=== PATIENT | female | born 1970 | race Caucasian/White ===

== ENCOUNTER 2020-03-05 13:18 | Outpatient (REF) | payer OTHER, SELFPAY | END 2020-03-05 13:19 | disposition home or self-care (01) | LOC: HO.HAP 13:18 | PROVIDERS: PCP Internal Medicine; Visit Provider Internal Medicine | DX: Z46.1 Encounter for fitting and adjustment of hearing aid (principal) | CPT/HCPCS: V5266 ==

== ENCOUNTER 2020-03-22 15:14 | Outpatient (REF) | payer OTHER, SELFPAY ==
--- NOTE | 2020-03-22 15:18 | MM_ITS ---
EXAMINATION: MM SCREENING DIGITAL BREAST TOMOSYNTHESIS, BILATERAL CLINICAL INFORMATION: Screening. Asymptomatic. The lifetime risk of breast cancer based on the Tyrer-Cuzick Model is 21.1%. COMPARISON: Mammography: March 17, 2019 and studies dating back to February 10, 2011 TECHNIQUE: Digital breast tomosynthesis is performed in both the craniocaudal and mediolateral oblique views along with computer-aided detection (CAD). Synthesized 2D images are generated from the tomosynthesis. Additional left exaggerated craniocaudal view performed. FINDINGS: There are scattered areas of fibroglandular density (ACR BI-RADS breast composition Category b). There are no significant masses, abnormal calcifications, or other abnormalities. MM/MM tomosynthesis screening BI IMPRESSION: There are no significant changes from prior study. ASSESSMENT: BI-RADS 1: Negative RECOMMENDATION: Routine annual mammography screening. This patient's information was entered into a reminder system with a target due date for their next mammogram.
== END 2020-03-22 15:15 | disposition home or self-care (01) ==
LOC: HO.MAMMO 15:14
PROVIDERS: PCP Internal Medicine; Visit Provider Internal Medicine
DX: Z12.31 Encounter for screening mammogram for malignant neoplasm of breast (principal)
CPT/HCPCS: 77063; 77067

== ENCOUNTER 2020-05-09 09:19 | Outpatient (REF) | payer OTHER, SELFPAY ==
--- NOTE | 2020-05-10 10:00 | MHC.AU.P13 ---
Adult Audiological Evaluation Date of Visit: 05/09/20 Reason for Appointment: Audiological evaluation to monitor the status of Ms. Cadena's hearing loss. She notes that she is not hearing as well. She and her wharfinger chief deny any changes to her medical history. Previous Hearing Test Results: [facility] [place]- mild to moderately severe sensorineural hearing loss in the right ear, mild to moderate sensorineural hearing loss in the left ear. 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[employer] Model: Wishdates B50-M Serial Number: [id number] Battery Size: 312 Repair Warranty: 12/28/2020 Loss and Damage Warranty: 12/28/2020 Dispensed By: [facility] Date of Fittin10/21/2017 Hearing Instrument History- Left Ear: Real Estate Broker: [employer] Model: Wishdates B50-M Serial Number: [id number] Battery Size: 312 Warranty: 12/28/2020 Loss and Damage Warranty: 12/28/2020 Dispensed By: [facility] Date of Fittin10/21/2017 Otoscopy: Right Ear: Unremarkable Left Ear: Unremarkable Tympanometry: Tympanometry performed due to: Right Ear: Not performed at today's visit Left Ear: Not performed at today's visit Hearing Evaluation: Transducer(s) Used: Insert Earphones, Circumaural Headphones Method: Conventional Audiometry Stimuli Used: Pure Tones Right Ear: Description of Hearing: Normal hearing at 250 Hz, sloping to a mild conductive hearing loss at 500 Hz and a moderate sensorineural hearing loss from 7231-3809 Hz. Left Ear: Description of Hearing: Normal hearing at 250-500 Hz, sloping to a mild to moderate sensorineural hearing loss from 750-8000 Hz. Speech Recognition Threshold (SRT): Method Used: Recorded Lists Stimuli Used: Spondee Words Right Ear: 40 dBHL Left Ear: 40 dBHL Word Discrimination: Method: Recorded Lists Word Lists Used: Lista Bisil?bica (Slovak) Right Ear: 100% at 80 dBHL Left Ear: 100% at 80 dBHL Comparison: Compared to the most recent evaluation: Hearing is stable. Recommendations: Audiological re-evaluation in one year. Hearing aid maintenance performed today. Hearing aid(s) reprogrammed with updated test results. See Hearing Aid Follow-Up note for more information. Recommend hearing aid maintenance in 6 months, or sooner if needed. Diagnosis: Primary Diagnosis: H90.3 Bilateral Sensorineural Hearing Loss Services Performed: Comprehensive Audiological Evaluation (CPT 81869) Signature: Provider: Tiago Lizarraga, CCC-A
== END 2020-05-09 09:20 | disposition home or self-care (01) ==
LOC: HO.SH 09:19
PROVIDERS: Visit Provider Internal Medicine
DX: Z46.1 Encounter for fitting and adjustment of hearing aid (principal); H90.3 Sensorineural hearing loss, bilateral
CPT/HCPCS: 92557; 92593; 99499

== ENCOUNTER 2020-11-27 12:51 | Outpatient (REF) | payer OTHER, SELFPAY | END 2020-11-27 12:52 | disposition home or self-care (01) | LOC: HO.HAP 12:51 | PROVIDERS: Visit Provider Internal Medicine | DX: Z46.1 Encounter for fitting and adjustment of hearing aid (principal); H90.3 Sensorineural hearing loss, bilateral | CPT/HCPCS: V5266 ==

== ENCOUNTER 2021-02-13 08:59 | Outpatient (REF) | payer OTHER, SELFPAY ==
--- NOTE | ~2021-02-13 | FL_ITS ---
EXAMINATION: FL BARIUM SWALLOW Please see combined upper GI barium and barium swallow report
--- NOTE | ~2021-02-13 | FL_ITS ---
EXAMINATION: XR GI SERIES and small bowel follow-through CLINICAL INFORMATION: Dysphagia COMPARISON: None TECHNIQUE: Upper GI was performed using thin and thick barium and effervescent granules. Barium tablet was also administered. FINDINGS: The swallowing mechanism is normal. No aspiration or penetration is seen. Esophageal motility is normal. There is a small diverticulum of the right side of the distal thoracic esophagus. There is gastroesophageal reflux. No hernia is seen. No esophageal mass or stricture is seen. The barium tablet passed freely into the stomach. Stomach and duodenum are normal-appearing. No fold thickening, mass, ulcer or stricture is seen. FLUOROSCOPY TIME: 0.6 minutes DOSE AREA PRODUCT: 4.5 cuevas per centimeter squared. 35 saved fluoroscopic images. FL/FL upper GI series IMPRESSION: Small diverticulum of the distal thoracic esophagus. Significant gastroesophageal reflux.
== END 2021-02-13 09:00 | disposition home or self-care (01) ==
LOC: HO.XRAY 08:59
PROVIDERS: PCP Internal Medicine; Visit Provider Internal Medicine
DX: R13.10 Dysphagia, unspecified (principal)
CPT/HCPCS: 74220; 74240; 74246

== ENCOUNTER 2021-04-24 10:34 | Outpatient (REF) | payer OTHER, SELFPAY | END 2021-04-24 10:35 | disposition home or self-care (01) | LOC: HO.LNP 10:34 | PROVIDERS: Visit Provider Family Medicine | DX: Z20.822 Contact with and (suspected) exposure to COVID-19 (principal) | CPT/HCPCS: U0003; U0005 ==

== ENCOUNTER 2021-04-30 08:41 | Outpatient (REF) | payer OTHER, SELFPAY ==
[2021-04-30 11:26] LABS: MANUAL DIFF FLAG NO
[2021-04-30 11:28] LABS: Basophils Percent Auto 0.6 % (0-2); Eosinophils Absolute Auto 0.2 X10*3/uL (0.0-0.4); Eosinophils Percent Auto 2.8 % (0-4); Hematocrit 36.5 % (37.0-47.0); Hemoglobin 11.6 g/dl (12.0-16.0); Imm Gran Abs Auto 0.02 X10*3/uL (0.00-0.03); Imm Gran Pct Auto 0.4 % (0.0-0.4); Immature Retic Fraction 8.3 % (3.0-15.9); Lymphocytes Absolute Auto 0.9 X10*3/uL (1.2-4.9); Lymphocytes Percent Auto 17.8 % (20-40); Mean Corpuscular HGB Conc 31.8 g/dl (31.0-35.0); Mean Corpuscular Hemoglobin 26.3 pg (27.0-33.0); Mean Corpuscular Volume 82.8 fL (80.0-98.0); Mean Platelet Volume 12.6 fL (9.4-12.3); Monocytes Absolute Auto 0.4 X10*3/uL (0.1-1.2); Monocytes Percent Auto 6.8 % (2-11); Neutrophils Absolute Auto 3.8 x10*3/uL (2.0-8.3); Neutrophils Percent Auto 71.6 % (45-73); Platelet Count 205 X10*3/uL (160-400); Red Blood Count 4.41 X10*6/uL (4.20-5.50); Red Cell Distribution Width 13.5 % (11.0-16.0); Reticulocyte Percent 0.9 % (0.5-1.8); Reticulocytes Absolute 0.041 X10*6/uL (0.026-0.095); White Blood Count 5.3 X10*3/uL (4.8-10.8)
[2021-04-30 12:05] LABS: Alanine Aminotransferase 18 U/L (0-31); Alkaline Phosphatase 63 U/L (39-117); Anion Gap 12 (12-20); Aspartate Amino Transferase 15 U/L (5-31); Bilirubin Total 0.7 mg/dL (0.0-1.0); Blood Urea Nitrogen 14 mg/dL (9-16); Calcium 9.5 mg/dL (8.4-10.2); Carbon Dioxide 27 mmol/L (22-29); Chloride 106 mmol/L (96-108); Cholesterol 153 mg/dL; Estimated Glomerular Filt Rate > 60; Glucose Random 88 mg/dL (60-115); HDL Cholesterol 52 mg/dL; Iron 51 mcg/dL (30-160); LDL Cholesterol Calculated 88 mg/dl; Percent Iron Saturation 16 % (15-50); Potassium 4.6 mmol/L (3.3-5.1); Sodium 140 mmol/L (135-145); Total Iron Binding Capacity 321 mcg/dL (228-428); Triglycerides 67 mg/dL; Unsaturated Iron Binding 270 ug/dL
[2021-04-30 12:16] LABS: Ferritin 17 ng/mL (10-250); Free T4 (Free Thyroxine) 0.81 ng/dL (0.71-1.85); Thyroid Stimulating Hormone 2.12 uIU/mL (0.32-4.0); Vitamin D 25-OH Total 31.6 ng/mL (>30)
[2021-04-30 12:40] LABS: Folate 16.7 ng/mL (> or = 4.0); Vitamin B12 335 pg/mL (200-900)
== END 2021-04-30 08:42 | disposition home or self-care (01) ==
LOC: HO.WFDLDS 08:41
PROVIDERS: Visit Provider Internal Medicine
DX: E66.9 Obesity, unspecified (principal); E78.00 Pure hypercholesterolemia, unspecified; D64.9 Anemia, unspecified
CPT/HCPCS: 36415; 80053; 80061; 82306; 82607; 82728; 82746; 83540; 84439; 84443; 85025; 85045

== ENCOUNTER 2021-05-15 09:19 | Outpatient (REF) | payer OTHER, SELFPAY ==
--- NOTE | ~2021-05-15 | MM_ITS ---
EXAMINATION: MM SCREENING DIGITAL BREAST TOMOSYNTHESIS, BILATERAL CLINICAL INFORMATION: Screening. Asymptomatic. Family history breast cancer, mother. The lifetime risk of breast cancer based on the Tyrer-Cuzick Model is 22%. COMPARISON: Mammography: 03/22/2020, 03/17/2019, 02/22/2018, 01/28/2017 TECHNIQUE: Digital breast tomosynthesis is performed in both the craniocaudal and mediolateral oblique views along with computer-aided detection (CAD). Synthesized 2D images are generated from the tomosynthesis. Additional bilateral CC and left MLO views are provided. FINDINGS: There are scattered areas of fibroglandular density (ACR BI-RADS breast composition Category b). There are no significant masses, abnormal calcifications, or other abnormalities. Parenchymal pattern is similar to prior studies. There is no developing density or architectural abnormality. The axilla and skin contours are unremarkable. No significant changes. MM/MM tomosynthesis screening BI IMPRESSION: No mammographic evidence of malignancy. ASSESSMENT: BI-RADS 1: Negative RECOMMENDATION: 1. Routine annual mammography screening. 2. The lifetime risk of breast cancer based on the Tyrer-Cuzick Model is 22%. Additional annual adjunct screening with breast MRI may be of benefit in women with a risk score of 20% or greater. This patient's information was entered into a reminder system with a target due date for their next mammogram.
== END 2021-05-15 09:20 | disposition home or self-care (01) ==
LOC: HO.MAMMO 09:19
PROVIDERS: PCP Internal Medicine; Visit Provider Internal Medicine
DX: Z12.31 Encounter for screening mammogram for malignant neoplasm of breast (principal)
CPT/HCPCS: 77063; 77067

== ENCOUNTER → 2021-09-03 12:49 | Outpatient (BNVA) | payer OTHER, SELFPAY | PROVIDERS: PCP Internal Medicine; Referring Provider Internal Medicine; Visit Provider Physician Assistant | DX: K21.9 Gastro-esophageal reflux disease without esophagitis (principal); K59.00 Constipation, unspecified; Z79.899 Other long term (current) drug therapy | CPT/HCPCS: 99202 ==

== ENCOUNTER 2022-05-28 10:54 | Outpatient (REF) | payer OTHER, SELFPAY ==
--- NOTE | ~2022-05-28 | MM_ITS ---
EXAMINATION: MM SCREENING DIGITAL BREAST TOMOSYNTHESIS, BILATERAL CLINICAL INFORMATION: Screening. Asymptomatic. Family history breast cancer, mother. The lifetime risk of breast cancer based on the Tyrer-Cuzick Model is 22%. COMPARISON: Mammography: 06/04/2021, 03/22/2020, 03/17/2019 TECHNIQUE: Digital breast tomosynthesis is performed in both the craniocaudal and mediolateral oblique views along with computer-aided detection (CAD). Synthesized 2D images are generated from the tomosynthesis. Additional left CC view is provided. FINDINGS: There are scattered areas of fibroglandular density (ACR BI-RADS breast composition Category b). There are no significant masses, abnormal calcifications, or other abnormalities. No architectural abnormality or developing density or significant change from prior studies. There are scattered minor stable asymmetries. The axilla are unremarkable. No significant changes. MM/MM tomosynthesis screening BI IMPRESSION: No mammographic evidence of malignancy. ASSESSMENT: BI-RADS 2: Benign RECOMMENDATION: Routine annual mammography screening. This patient's information was entered into a reminder system with a target due date for their next mammogram.
== END 2022-05-28 10:55 | disposition home or self-care (01) ==
LOC: HO.MAMMO 10:54
PROVIDERS: PCP Internal Medicine; Visit Provider Internal Medicine
DX: Z12.31 Encounter for screening mammogram for malignant neoplasm of breast (principal)
CPT/HCPCS: 77063; 77067

== ENCOUNTER 2022-08-21 06:08 | Day surgery (SDC) | payer OTHER, SELFPAY ==
[2022-08-19 09:31] VITALS: BMI 35.0
--- NOTE | 2022-08-20 12:14 | HO.ANESPROP2 ---
Documented by User: Britt Munroe NP 08/20/22 12:14 HPI - Anesthesia Eval Consult details Narrative: 51yo F for Upper Endoscopy and Colonoscopy PMFSH Active Problems Active Problems: All Active Problems (Updated 02/04/22 @ 13:43 by Mal Potter MD) Annual physical exam (Acute) Constipation (Acute) Hearing impairment (Acute) Annual physical exam (Acute) Dysphagia (Acute) Colon cancer screening (Acute) Vitamin D deficiency (Acute) GERD (gastroesophageal reflux disease) (Acute) Viral illness (Acute) Nasal congestion (Acute) Acute sore throat (Acute) Encounter for screening colonoscopy (Acute) Dystrophic nail (Acute) Obesity (BMI 30-39.9) (Acute) Anemia (Acute) Mood disorder (Acute) Past Medical History Medical History Anemia Mental and behavioral problem Mood disorder Obesity (BMI 30-39.9) Family History Family History (Updated 02/04/22 @ 13:33 by Mal Potter MD) Father Diabetes Skin cancer Hypertension Myocardial infarct, Onset Age: 73 Mother Breast cancer Skin cancer Paternal Grandfather Diabetes Sister Skin cancer Surgical History Surgical History (Updated 08/19/22 @ 09:30 by Jade Ramos RN) Surgical history unknown Social History Social History Housing: Apartment Patient Tobacco Use Status: Never used Tobacco e-Cigarette/Vaping Use: Never Used Second Hand Smoke Exposure: No Are you DNR?: No Advance Directives: No Advance Directives Information Provided: Yes Nutrition Risks: No Nutritional Risk FDLMP: 08/09/22 Current occupational status: disabled Cognitive needs: Yes Hearing needs: Yes Vision needs: Yes Meds Allergies Allergy/AdvReac Type Severity Reaction Status Date / Time No Known Allergies Allergy Verified 08/21/22 07:11 [No Known Allergies*] Home Medications Medication Instructions Recorded Confirmed Last Taken Type metronidazole 0.75 % topical cream 1 appl topical BID 05/03/21 08/19/22 Unknown History triamcinolone acetonide 0.025 % 1 appl topical BID 05/03/21 08/19/22 Unknown History lotion ketoconazole 2 % shampoo 1 appl topical DAILY 09/03/21 08/19/22 Unknown History Exam Exam Date and Time: August 20, 2022 1214 Height,Weight and Vital Signs: Height 5 ft 4 in Weight 92.533 kg Assessment and Plan Assessment Anesthesia Assessment: Chart Reviewed Documented by User: Jigna Peck MD 08/21/22 08:14 [facility] Past Medical History Medical History Anemia Mental and behavioral problem Mood disorder Obesity (BMI 30-39.9) Family History Family History (Updated 02/04/22 @ 13:33 by Mal Potter MD) Father Diabetes Skin cancer Hypertension Myocardial infarct, Onset Age: 73 Mother Breast cancer Skin cancer Paternal Grandfather Diabetes Sister Skin cancer Family history of problems with anesthesia: No Surgical History Surgical History (Updated 08/19/22 @ 09:30 by Jade Ramos, ADRIANNE) Surgical history unknown History of Problems with Anesthesia: No (lcal for dentist only) Social History Social History Housing: Apartment Patient Tobacco Use Status: Never used Tobacco e-Cigarette/Vaping Use: Never Used Second Hand Smoke Exposure: No Are you DNR?: No Advance Directives: No Advance Directives Information Provided: Yes Nutrition Risks: No Nutritional Risk FDLMP: 08/09/22 Current occupational status: disabled Cognitive needs: Yes Hearing needs: Yes Vision needs: Yes Meds Allergies Allergy/AdvReac Type Severity Reaction Status Date / Time No Known Allergies Allergy Verified 08/21/22 07:11 [No Known Allergies*] Home Medications Medication Instructions Recorded Confirmed Last Taken Type metronidazole 0.75 % topical cream 1 appl topical BID 05/03/21 08/19/22 Unknown History triamcinolone acetonide 0.025 % 1 appl topical BID 05/03/21 08/19/22 Unknown History lotion ketoconazole 2 % shampoo 1 appl topical DAILY 09/03/21 08/19/22 Unknown History Exam Airway Mallampati Class: II TM Dist: >3cm Neck ROM: Full Loose/Missing/Broken Teeth: No Heart: rr Lungs: cta Assessment and Plan Assessment Anesthesia Assessment: Anesthesia Plan Discussed Final Anesthetic Review Family History of Problems with Anesthesia: No History of Problems with Anesthesia: No (lcal for dentist only) NPO: Yes ASA Class: II Final Preanesthetic Review: No Changes in Pt Med Stat, Meds/Allgs Chart Reviewed, Consent Obtained/Reviewed and Anes Risks/Benef Reviewed Patient Risk: Low Procedure Risk: Low Anesthetic Plan Anesthetic Plan: MAC: Disposition: Standard PACU
[2022-08-21 06:44] LABS: UPreg QC Valid YES; Urine Pregnancy NEGATIVE (NEGATIVE)
[2022-08-21] MEDS: Lactated Ringers 1,000 ML 100 ML IVCONT (06:58)
[2022-08-21 07:07] VITALS: BP 146/79; PULSE 73; RESP 18; TEMP 36.8; O2SAT 100
--- NOTE | 2022-08-21 07:27 | PC.NURSE ---
Patient's sister is her guardian. Sister emailed me the guardianship papers to be scanned into medical record. Stickered and placed in chart.
--- NOTE | 2022-08-21 08:06 | MHC.SHP ---
Pre-Procedural Eval Section A Date of Service: 08/21/22 The patient is an INPATIENT: No The History & Physical has been completed within 30 days and I have reviewed it.: No Section B Chief Complaint: reflux disease,constipation,screening Relevant Family History (Specify if Yes): No Relevant Social History: None Present Medications: see Short Stay Collaborative assessment Medical History: Significant History (Anemia Mental and behavioral problem Mood disorder Obesity (BMI 30-39.9)) History of Previous Operations: No relevant previous surgery Allergies: Allergies Allergy/AdvReac Type Severity Reaction Status Date / Time No Known Allergies Allergy Verified 08/21/22 07:11 [No Known Allergies*] Review of Systems Sugical H&P ROS: Negative: Constitution, Cardiovascular and Respiratory and Yes, Specify: Gastrointestinal (constipation) Exam Surgical H&P Exam: Normal: Heart, Normal: Lungs, Normal: Extremities and Normal: Abdomen Plan Diagnosis/Plan: Unchanged I have reviewed the history and physical and performed a pertinent physical examination on my patient. No changes have occurred unless specified. Time Spent With Patient Time: Total time managing care of this patient today ____ minutes.
--- NOTE | 2022-08-21 08:14 | W.PM.OPN ---
Operative Note Operative Note Date of Service: 08/21/22 Narrative: FLEXIBLE TRANSORAL UPPER GASTROINTESTINAL ENDOSCOPY WITH BIOPSIES AND COLONOSCOPY TILL CECUM WITH BIOPSIES Pre-op diagnosis: Colon cancer screening, chronic constipation, GERD Post-op diagnosis: GERD, Gastritis, gastric polyp? Endoscopist:? Dorian Leach MD Anesthesia:?MAC UPPER ENDOSCOPY Consent: Indications for the procedure and potential complications of bleeding, perforation, reaction to medications and missed diagnosis were discussed with the patient's sister and HCP and informed consent was obtained. Instrument: Olympus GIF H 190 mid size upper endoscope Monitoring: Vital signs and clinical assessment, continuous EKG monitoring, Pulse oximetry, Carbon Dioxide monitoring and blood pressure monitoring were done throughout the procedure. Procedure: The patient was placed in the left lateral decubitis position and pre-procedure medications were administered and a bite block was placed. The endoscope was inserted into the mouth and advanced under direct vision to the third part of duodenum. A careful inspection was made as the upper endoscope was withdrawn including a retroflexed examination of the proximal stomach; Findings and interventions are described below. Findings: Larynx: Normal Esophagus: GE junction at 36 cms. No esophagitis or Shah's. Stomach: Moderate diffuse gastric erythema. Biopsies were obtained from the antrum and body of the stomach. A 4-5 mm benign appearing polyp in the gastric body - biopsied. Grade 2 flap valve on retroflexed examination of the cardia. Duodenum: Normal bulb and descending duodenum Intervention: Biopsies as noted above COLONOSCOPY PROCEDURE NOTE Consent: Indications for the procedure and potential complications of bleeding, perforation, reaction to medications and missed diagnosis were discussed with the patient and informed consent was obtained. Instrument: Olympus PCF H 190 L variable stiffness pediatric colonoscope Monitoring: Vital signs and clinical assessment, intermittent blood pressure monitoring, continuous EKG monitoring, Pulse oximetry and Carbon Dioxide monitoring were done throughout the procedure. Colon withdrawl time was 10 minutes. Procedure: The patient was placed in the left lateral decubitis position and pre-procedure medications were administered. After a digital rectal examination of the ano-rectum, the video colonoscope was inserted into the rectum and advanced through the colon to the cecum. The colonoscope was slowly withdrawn in a retrograde panoramic fashion and the colon mucosa was carefully examined including a retroflexed view of the rectum. Findings and interventions are described below. Procedure Difficulty: : Without difficulty Findings: Terminal Ileum: Not evaluated Cecum: Mld melanosis coli throughout the colon - random biospies were obained from the right colon Ascending Colon: Mld melanosis coli throughout the colon - random biospies were obained from the right colon Transverse Colon: Mld melanosis coli throughout the colon - random biospies were obained from the right colon Descending Colon: Mld melanosis coli throughout the colon - random biospies were obained from the right colon Sigmoid Colon: Mld melanosis coli throughout the colon - random biospies were obained from the right colon Rectum: Normal Ano-rectum: Moderate internal hemorrhoids and perianal skin tags Colon preparation: [Excellent] [Good] [Fair] [poor] Impression and Post Procedure Diagnosis: Endoscopy Findings: STOMACH: Moderate diffuse gastric erythema. Biopsies were obtained from the antrum and body of the stomach. A 4-5 mm benign appearing polyp in the gastric body - biopsied. Colonoscopy Findings: No polyps were detected Moderate diverticulosis seen in the []colon Moderate hemorrhoids on retroflexed exam. Plan: Await pathology results Patient has an appointment on 09/03/22 in the GI Clinic with OXANA Ramirez. Repeat Colonoscopy in 10 years. Above findings were reviewed with the patient's sister and HCP and GERD, Gastric Polyp, Melanosis Coli and Hemorrhoids handouts were given in the discharge area
[2022-08-21 09:01] VITALS: BP 105/56; PULSE 66; RESP 20; TEMP 36.8; O2SAT 100
[2022-08-21 09:16] VITALS: BP 121/63; PULSE 68; RESP 18; TEMP 36.8; O2SAT 100
== END 2022-08-21 09:40 | disposition home or self-care (01) ==
PROVIDERS: Nurse Practitioner; PCP Internal Medicine; Visit Provider Internal Medicine Gastroenterology
PROC: (CPT 45380; principal; 2022-08-21 08:10)
DX: Z12.11 Encounter for screening for malignant neoplasm of colon (principal); K63.89 Other specified diseases of intestine; K59.00 Constipation, unspecified; K64.8 Other hemorrhoids; K64.4 Residual hemorrhoidal skin tags; K21.9 Gastro-esophageal reflux disease without esophagitis; K29.50 Unspecified chronic gastritis without bleeding; K31.7 Polyp of stomach and duodenum; D64.9 Anemia, unspecified; F99 Mental disorder, not otherwise specified; F91.9 Conduct disorder, unspecified; F39 Unspecified mood [affective] disorder; E66.9 Obesity, unspecified; Z68.35 Body mass index [BMI] 35.0-35.9, adult; Z86.19 Personal history of other infectious and parasitic diseases
CPT/HCPCS: 45380; 43239; 81025; 88305; 88342

== ENCOUNTER → 2022-09-30 13:10 | Outpatient (BNVA) | payer OTHER, SELFPAY | PROVIDERS: Visit Provider Physician Assistant | DX: K21.9 Gastro-esophageal reflux disease without esophagitis (principal); K59.00 Constipation, unspecified; K57.30 Diverticulosis of large intestine without perforation or abscess without bleeding; Z79.899 Other long term (current) drug therapy; Z98.890 Other specified postprocedural states | CPT/HCPCS: 99212 ==

== ENCOUNTER 2023-02-11 08:45 | Outpatient (AMB) | payer OTHER, SELFPAY ==
[2023-02-11 09:07] VITALS: BP 118/70; PULSE 73; O2SAT 98; BMI 34.7
--- NOTE | 2023-02-11 09:07 | MHC.PC.OV ---
Vital Signs 02/11/23 09:07 Height 5 ft 4 in Weight 202 lb BMI 34.7 BP 118/70 Blood Pressure Location Lt brachial Position Sitting Pulse 73 Pulse Source Pulse Oximeter Pulse Oximetry (%) 98 Oxygen Delivery Method Room Air Intake Visit Reasons: physical Allergies No Known Allergies [No Known Allergies*] Allergy (Verified 02/11/23 09:07) Medication List - Last Reconciled 02/11/23 by Mal Potter MD fluoxetine 20 mg (5 mL) PO DAILY 90 days fluticasone propionate 50 mcg/actuation (Flonase Allergy Relief) 2 sprays intranasal DAILY ketoconazole 2% 1 appl topical DAILY methylcellulose (laxative) (Citrucel) 500 mg PO BID metronidazole 0.75% 1 appl topical BID omeprazole 20 mg PO DAILY 90 days sennosides-docusate sodium 8.6-50 mg (Senna-S) 2 tab-caps (2 x 8.6-50 mg) PO BEDTIME 90 days triamcinolone acetonide 0.025% 1 appl topical BID Tobacco use date assessed: 02/11/23 Dental Screening Dental Screen Date: 02/11/23 Did you have a dental visit in the last 12 months?: Yes Did you have a dental problem in the last 6 months where you did not have access to dental care?: No Was dental information given to patient?: Patient has dentist HPI physical HPI Details 52-year-old obese female with a history of mood disorder and GERD coming in for physical exam last seen in January last year. Mammograms up-to-date. Patient has met with gastroenterology EGD and colonoscopy done August 2022 [facility] Medical History (Updated 02/11/23 @ 09:34 by Mal Potter MD) Colon cancer screening Dysphagia Mental and behavioral problem Obesity (BMI 30-39.9) Anemia Mood disorder Surgical History Hx of colonoscopy History of esophagogastroduodenoscopy (EGD) Surgical history unknown Family History (Updated 02/11/23 @ 09:40 by Mal Potter MD) Father Diabetes Skin cancer Hypertension Myocardial infarct, Onset Age: 73 Mother Breast cancer Skin cancer Graves disease Paternal Grandfather Diabetes Sister Skin cancer Social History Housing: Apartment Patient Tobacco Use Status: Never used Tobacco e-Cigarette/Vaping Use: Never Used Second Hand Smoke Exposure: No Current occupational status: disabled Cognitive needs: Yes Hearing needs: Yes Vision needs: Yes Questionnaire PHQ-9 Over the last 2 weeks, how often have you been bothered by any of the following problems? 1. Little interest or pleasure in doing things: not at all 2. Feeling down, depressed, or hopeless: not at all 3. Trouble falling or staying asleep, or sleeping too much: not at all 4. Feeling tired or having little energy: not at all 5. Poor appetite or overeating: not at all 6. Feeling bad about yourself - or that you are a failure or have let yourself or your family down: not at all 7. Trouble concentrating on things, such as reading the newspaper or watching television: not at all 8. Moving or speaking so slowly that other people could have noticed. Or the opposite - being so fidgety or restless that you have been moving around a lot more than usual: not at all 9. Thoughts that you would be better off or of hurting yourself in some way: not at all Total score: 0 Depression Screening Interpretation: Negative Depression Screening Done: Yes Source: Developed by Drs. Bryan Wheat, Rissa Da Silva, Macario Haley and colleagues, with an educational romeo from [employer]. Thrive Questionnaire Date Thrive assessed: 02/11/23 I am a: Parent/Caregiver What is your living situation today?: I have a steady place to live Within the past 12 months, did the food you bought not last and you didn't have the money to get more?: Never true Within the past 12 months, did you worry whether your food would run out before you got money to buy more?: Never true Do you have trouble paying for medicines?: No Do you have trouble getting transportation to medical appointments?: No Do you have trouble paying your heating and electricity bill?: No Do you have trouble taking care of your child, family member or friend?: No Do you have trouble with day-to-day activities such as bathing, preparing meals, shopping, managing finances, etc.?: No Are you currently unemployed and looking for a job?: No Are you interested in more education?: No Currently or been in a relationship where the following occur: no concerns reported AUDIT C Alcohol Use Questionnaire (AUDIT-C) 1. How often do you have a drink containing alcohol?: Never 3. How often do you have six or more drinks on one occasion?: Never Total Score: 0 ZE-7 AMB Questionnaire ZE-7 Date ZE - 7 assessed: 02/11/23 Feeling nervous, anxious, or on edge: 0 = Not at all Not being able to stop or control worryin = Not at all Worrying too much about different things: 0 = Not at all Trouble relaxin = Not at all Being so restless that it is hard to sit still: 0 = Not at all Becoming easily annoyed or irritable: 0 = Not at all Feeling afraid as if something awful might happen: 0 = Not at all Total ZE-7 score (0-4 normal; 5-9 mild; 10-14 moderate; 15-21 severe): 0 Source: Developed by Drs. Bryan Wheat, Rissa Da Silva, Macario Haley and colleagues, with an educational romeo from [employer]. Review of Systems Const Denies poor appetite and Denies weakness Eyes Denies no additional complaints ENT Reports Normal hearing present, Denies dizziness, Denies nasal congestion, Denies tinnitus and Denies sore throat Card Denies chest pain, Denies syncope, Denies rapid heart rate and Denies dyspnea Resp Denies cough and Denies dyspnea GI Denies change in stool character, Reports constipation, Denies diarrhea, Denies nausea and Denies vomiting Denies urinary frequency, Denies difficulty voiding and Denies dysuria Neuro Reports Normal hearing present, Denies confusion, Denies dizziness, Denies syncope and Denies weakness Psych Denies confusion Physical exam (Primary Care) Vital Signs: Last Vital Signs Pulse 73 02/11/23 09:07 BP 118/70 02/11/23 09:07 Pulse Ox 98 02/11/23 09:07 Oxygen Delivery Method Room Air 02/11/23 09:07 BMI result Body Mass Index 34.7 Tobacco/Smoking Status: Tobacco use Status Tobacco use date assessed 02/11/23 02/11/23 09:10 Patient Tobacco Use Status Never used Tobacco 02/11/23 09:10 e-Cigarette/Vaping Use Never Used 02/11/23 09:10 PHQ-9: PHQ-9 Score PHQ-9: Total score 0 02/11/23 09:27 Depression Screening Interpretation: Negative Thrive Assessment: Date of Thrive Assessment Date Thrive assessed 02/11/23 02/11/23 09:10 Currently or been in a relationship where the following occur: no concerns reported Const General: No confusion Orientation/consciousness: No confusion HENMT Head: Yes normocephalic Ears: external ears normal and TM's normal bilaterally Face and sinus: Yes normal facial exam Mouth: moist mucous membranes Throat: Yes tonsils normal Eyes Conjunctivae: conjunctivae normal Pupils: Equal, round and reactive pupils present and Pupil accommodation reflex normal Direct Ophthalmoscopy: normal light reflex Neck Neck: No lymphadenopathy Thyroid: Thyroid normal Chest Chest palpation & inspection: normal inspection of the chest Resp Effort & Inspection: normal respiratory effort and no audible wheezes Auscultation: clear to auscultation bilaterally, no crackles, no wheezes and lung sounds not diminished Cardio Rate: regular rate Rhythm: regular rhythm Peripheral pulses: radial pulses present and dorsalis pedis present GI Palpation (GI): no masses Auscultation: normal bowel sounds and normoactive bowel sounds Rectal Exam - Female: deferred Skin General skin exam: no rashes or lesions noted Rashes: no rashes Neuro General: No confusion Cranial nerves: Yes Equal, round and reactive pupils present and Yes Normal hearing present Cognition (Neuro): normal cognition Gait exam (Neuro): Normal gait present Motor exam (neuro): 5/5 motor strength present throughout Deep tendon reflexes (DTR's): Right brachioradialis reflex intensity grade: 2+, Left brachioradialis reflex intensity grade: 2+, Right patellar reflex intensity grade: 2+ and Left patellar reflex intensity grade: 2+ Extrem General: No edema Office Procedures Flu Questionnaire Does the patient have a severe egg allergy?: No Does the patient have severe life threatening allergies?: No Does the patient have a fever or illness today?: No Has the patient ever had Guillain-[place] Syndrome?: No Has the patient ever had any past reaction to a flu shot?: No Immunizations flu vacc [id number] 6mos up(PF) 60 mcg(15 mcgx4)/0.5 mL IM syringe Performing Provider: Mal Potter MD [facility] Administered by: Ramya Roa CMA on 02/11/23 09:19 Dose Route Admin Location Dispensed Lot Number Expiration Date [facility] Chemistry Research Assistant 0.5 mL IM Left Deltoid 0.5 mL [id number] 10/11/23 [id number] [employer] VIS Given Date VIS Provided VIS Publication Date 02/11/23 Single Vaccine 20 Eligibility Eligibility Date Funding Source Not [facility] Eligible 02/11/23 Private Assessment and Plan Assessment & Plan (1) Annual physical exam: Code(s): Z00.00 - Encounter for general adult medical examination without abnormal findings (2) Anemia: Code(s): D64.9 - Anemia, unspecified Plan: Will continue to follow-up on this (3) Obesity (BMI 30-39.9): Code(s): E66.9 - Obesity, unspecified Plan: Diet and exercise (4) Mood disorder: Code(s): F39 - Unspecified mood [affective] disorder Plan: Continue with counseling and therapy (5) GERD (gastroesophageal reflux disease): Comment: cont ppi-avoid culprits- Code(s): K21.9 - Gastro-esophageal reflux disease without esophagitis Plan: Avoid the foods that causes that usually spicy foods, tomato products, juices, coffee, soda and foods that your sensitive to. After eating do not lie down, allow 3-4 hours before in lie down. And keep the head of bed above 30 degrees to avoid the acid from going up. Placed on omeprazole 20 mg once a day (6) Constipation: Comment: bowel regimen- [facility] Code(s): K59.00 - Constipation, unspecified Plan: Three rules for constipation 1. Diet need to have a high fiber diet less of meat 2. Increase oral fluids 3. Exercise Orders: Orders Complete Blood Count Auto Diff Today D64.9 - Anemia, unspecified Ferritin Today D64.9 - Anemia, unspecified Reticulocyte Count Today D64.9 - Anemia, unspecified Vitamin B12 and Folate Today D64.9 - Anemia, unspecified Thyroid Stimulating Hormone Today D64.9 - Anemia, unspecified Lipid Panel Today D64.9 - Anemia, unspecified, E78.00 - Pure hypercholesterolemia, unspecified Vitamin D 25-OH Total Today D64.9 - Anemia, unspecified Influenza [id number] Immunization Today Z23 - Encounter for immunization IRON PROFILE Today D64.9 - Anemia, unspecified Free T4 (Free Thyroxine) Today D64.9 - Anemia, unspecified Comprehensive Met. Panel Today D64.9 - Anemia, unspecified Medications: Refilled fluoxetine 20 mg (5 mL) PO DAILY 450 mL 2RF 90 days F39 - Unspecified mood [affective] disorder, Z12.11 - Encounter for screening for malignant neoplasm of colon Coding Level of Care Code Est Pt Prev Care 40-64y(79692) Diagnoses Annual physical exam Z00.00 Anemia D64.9 Obesity (BMI 30-39.9) E66.9 Mood disorder F39 GERD (gastroesophageal reflux disease) K21.9 Constipation K59.00
== END 2023-02-11 09:55 | disposition home or self-care (01) ==
PROVIDERS: Visit Provider Internal Medicine
DX: Z23 Encounter for immunization (principal); Z00.00 Encounter for general adult medical examination without abnormal findings; D64.9 Anemia, unspecified; F39 Unspecified mood [affective] disorder; K21.9 Gastro-esophageal reflux disease without esophagitis; K59.00 Constipation, unspecified
CPT/HCPCS: 90471; 90686; 99396

== ENCOUNTER 2023-06-26 13:11 | Outpatient (REF) | payer OTHER, SELFPAY | END 2023-06-26 13:12 | disposition home or self-care (01) | LOC: HO.MAMMO 13:11 | PROVIDERS: PCP Internal Medicine; Visit Provider Internal Medicine | DX: Z12.31 Encounter for screening mammogram for malignant neoplasm of breast (principal) | CPT/HCPCS: 77063; 77067 ==

== ENCOUNTER → 2023-06-26 13:45 | Outpatient (BNV) | payer OTHER, SELFPAY | PROVIDERS: PCP Internal Medicine; Visit Provider Radiology Diagnostic Radiology | DX: Z12.31 Encounter for screening mammogram for malignant neoplasm of breast (principal) | CPT/HCPCS: 77063; 77067 ==

== ENCOUNTER 2023-12-15 09:19 | Outpatient (AMB) | payer OTHER, SELFPAY ==
--- NOTE | 2023-12-15 09:45 | MHC.OFFWIV ---
Intake Vital Signs 12/15/23 09:47 Height 5 ft 4 in Weight 203 lb BMI 34.8 BP 142/90 H Blood Pressure Location Lt brachial Position Sitting Pulse 81 Pulse Source Pulse Oximeter Pulse Oximetry (%) 98 Oxygen Delivery Method Room Air Intake Visit Reasons: EP neck/back pain/?UTI Intake Note: Patient here for back pain, burning when urinating, fatigue that has been present for about 2 days now. Patient Tobacco Use Status: Never used Tobacco Allergies No Known Allergies [No Known Allergies*] Allergy (Verified 12/15/23 09:48) Do you need a note to return to daycare/school/sports/work: No HPI EP neck/back pain/?UTI HPI Details 53-year-old female patient presents today with report of muscular upper back pain. She denies any injury or inciting event to this. This started a couple of days ago. She states that yesterday, she had some dull lower back pain, and was afraid she was developing a UTI. Denies any fever, chills, burning with urination, or odor/discoloration to urine. Yesterday she rested, and apply heating pad to lower back, and the symptoms resolved. She does still have a feeling of tightness in her lower posterior neck area. [facility] Medical History Colon cancer screening Dysphagia Mental and behavioral problem Obesity (BMI 30-39.9) Anemia Mood disorder Surgical History Hx of colonoscopy History of esophagogastroduodenoscopy (EGD) Surgical history unknown Family History Father Diabetes Skin cancer Hypertension Myocardial infarct, Onset Age: 73 Mother Breast cancer Skin cancer Graves disease Paternal Grandfather Diabetes Sister Skin cancer Social History Housing: Apartment Patient Tobacco Use Status: Never used Tobacco e-Cigarette/Vaping Use: Never Used Second Hand Smoke Exposure: No Current occupational status: disabled Cognitive needs: Yes Hearing needs: Yes Vision needs: Yes Review of Systems Const All systems reviewed & are unremarkable except as noted in HPI and below Physical Exam Vital Signs: Last Vital Signs Pulse 81 12/15/23 09:47 BP 142/90 H 12/15/23 09:47 Pulse Ox 98 12/15/23 09:47 Oxygen Delivery Method Room Air 12/15/23 09:47 BMI result Body Mass Index 34.8 Const General: cooperative, healthy appearing, comfortable and no acute distress HEENT Head: Yes normal to inspection Neck Neck: Yes full ROM and Yes no lymphadenopathy Resp Effort & Inspection: normal respiratory effort Auscultation: clear to auscultation bilaterally Cardio Rate: regular rate Rhythm: regular rhythm General: Yes bladder normal to palpation and Yes no CVA tenderness Bimanual exam- vagina & uterus: bladder normal to palpation Back/Spine/Pelvis Back: no CVA tenderness Cervical Spine: normal cervical lordosis, cervical ROM normal and cervical muscular tenderness (lower cervical/upper thoracic b/l muscle tightness/ttp. No vertebral ttp.) Thoracic/Lumbar Spine: thoraco-lumbar ROM normal Skin General skin exam: no rashes or lesions noted Extrem General: Yes capillary refill normal and Yes no clubbing, cyanosis or edema Psych Appearance: grossly normal Mental Status: mental status grossly normal Speech and movement: Normal speech and movement present Results AMB Urinalysis, Automated UA Leukoctes 0 Tory/uL Last Edit by CIERRA Wright on 12/15/23 10:09 UA Nitrite Negative Last Edit by Jordon Ortiz CCM on 12/15/23 10:09 UA Urobilinogen 0.2 mg/dL Last Edit by Jordon Ortiz CCM on 12/15/23 10:09 UA Protein 0 mg/dL Last Edit by Jordon Ortiz CCM on 12/15/23 10:09 UA pH 6.0 Last Edit by Jordon Ortiz CCM on 12/15/23 10:09 UA Blood 0 Shukri/uL Last Edit by Jordon Ortiz CCM on 12/15/23 10:09 UA Specific [place] 1.005 Last Edit by Jordon Ortiz CCM on 12/15/23 10:09 UA Ketone Negative Last Edit by Jordon Ortiz CCM on 12/15/23 10:09 UA Bilirubin 0 mg/dL Last Edit by CIERRA Wright on 12/15/23 10:09 UA Glucose 0 mg/dL Last Edit by CIERRA Wright on 12/15/23 10:09 Assessment & Plan Assessment & Plan (1) Strain of cervical portion of both trapezius muscles: Code(s): S16.1XXA - Strain of muscle, fascia and tendon at neck level, initial encounter Plan: Urine dip in the office was completely negative. Patient denies any ongoing urinary symptoms or flank pain. She does have some lower cervical/trapezius, upper thoracic myofascial tenderness bilaterally. I have recommended gentle stretching, heat application, NSAIDs, and I will prescribe her a short course of muscle relaxers to take at HS. If symptoms do not improve with conservative measures, or if new symptoms develop, she will return to the clinic for further evaluation. Patient and her sister accompanying patient verbalized understanding and agree to plan. Orders: Orders AMB Urinalysis Automated Today Z13.9 - Encounter for screening, unspecified Medications: New cyclobenzaprine Take one tablet as needed at bedtime for muscle pain/spasms. 5 mg PO BEDTIME PRN 7 tabs 0RF muscle spasm S16.1XXA - Strain of muscle, fascia and tendon at neck level, initial encounter Coding Level of Care Code Est Pt Level 4 (14493) Diagnoses Strain of cervical portion of both trapezius muscles S16.1XXA
[2023-12-15 09:47] VITALS: BP 142/90; PULSE 81; O2SAT 98; BMI 34.8
== END 2023-12-15 10:32 | disposition home or self-care (01) ==
PROVIDERS: PCP Internal Medicine; Visit Provider Nurse Practitioner Family
DX: S16.1XXA Strain of muscle, fascia and tendon at neck level, initial encounter (principal); M54.50 Low back pain, unspecified
CPT/HCPCS: 81003; 99214

== ENCOUNTER 2023-12-23 07:48 | Outpatient (REF) | payer OTHER, SELFPAY ==
[2023-12-23 11:37] LABS: Basophils Absolute Auto 0.1 X10*3/uL (0.0-0.2); Eosinophils Percent Auto 0.8 % (0-4); Hematocrit 28.8 % (37.0-47.0); Hemoglobin 8.2 g/dl (12.0-16.0); Imm Gran Abs Auto 0.02 X10*3/uL (0.00-0.03); Imm Gran Pct Auto 0.4 % (0.0-0.4); Immature Retic Fraction 16.9 % (3.0-15.9); Lymphocytes Absolute Auto 1.4 X10*3/uL (1.2-4.9); Lymphocytes Percent Auto 29.1 % (20-40); MANUAL DIFF FLAG SCAN; Mean Corpuscular HGB Conc 28.5 g/dl (31.0-35.0); Mean Corpuscular Hemoglobin 17.3 pg (27.0-33.0); Monocytes Absolute Auto 0.4 X10*3/uL (0.1-1.2); Monocytes Percent Auto 8.3 % (2-11); Neutrophils Percent Auto 60.4 % (45-73); PLT CLUMP 1; Red Blood Count 4.73 X10*6/uL (4.20-5.50); Red Cell Distribution Width 23.7 % (11.0-16.0); Retic HGB Equivalent 18.6 pg (30.0-35.0); Reticulocytes Absolute 0.049 X10*6/uL (0.026-0.095); SCAN SMEAR FLAG 1
[2023-12-23 11:38] LABS: Mean Corpuscular Volume 60.9 fL (80.0-98.0)
[2023-12-23 11:56] LABS: White Blood Count 4.9 X10*3/uL (4.8-10.8)
[2023-12-23 11:57] LABS: Platelet Count 295 X10*3/uL (160-400)
[2023-12-23 11:58] LABS: SLIDE REVIEW VERIFIED
[2023-12-23 12:12] LABS: Alanine Aminotransferase 13 U/L (0-31); Alkaline Phosphatase 63 U/L (39-117); Anion Gap 12 (12-20); Aspartate Amino Transferase 15 U/L (5-31); Bilirubin Total 0.5 mg/dL (0.0-1.0); Blood Urea Nitrogen 8 mg/dL (9-16); Carbon Dioxide 23 mmol/L (22-29); Chloride 108 mmol/L (96-108); Cholesterol 145 mg/dL (<200); Estimated Glomerular Filt Rate > 60; Glucose Random 86 mg/dL (60-115); HDL Cholesterol 59 mg/dL (>40); Iron 14 mcg/dL (30-160); LDL Cholesterol Calculated 74 mg/dL (<100); Percent Iron Saturation 4 % (15-50); Potassium 4.2 mmol/L (3.3-5.1); Sodium 139 mmol/L (135-145); Total Iron Binding Capacity 351 mcg/dL (228-428); Triglycerides 62 mg/dL (<150); Unsaturated Iron Binding 337 ug/dL
[2023-12-23 12:17] LABS: Ferritin 2 ng/mL (10-250); Free T4 (Free Thyroxine) 0.83 ng/dL (0.71-1.85); Thyroid Stimulating Hormone 1.28 uIU/mL (0.32-4.0)
[2023-12-23 12:23] LABS: Folate 16.2 ng/mL (> or = 4.0); Vitamin B12 295 pg/mL (200-900)
== END 2023-12-23 07:49 | disposition home or self-care (01) ==
LOC: HO.WFDLDS 07:48
PROVIDERS: Visit Provider Internal Medicine
DX: D64.9 Anemia, unspecified (principal); E78.00 Pure hypercholesterolemia, unspecified
CPT/HCPCS: 36415; 80053; 80061; 82306; 82607; 82728; 82746; 83540; 84439; 84443; 85025; 85045

== ENCOUNTER 2023-12-31 15:19 | Outpatient (AMB) | payer OTHER, SELFPAY ==
[2023-12-31 15:27] VITALS: BP 110/78; PULSE 69; O2SAT 98; BMI 35.2
--- NOTE | 2023-12-31 15:27 | A.OFFPC_ITS ---
Vital Signs 12/31/23 15:27 Height 5 ft 4 in Weight 205 lb BMI 35.2 BP 110/78 Blood Pressure Location Lt brachial Position Sitting Pulse 69 Pulse Source Pulse Oximeter Pulse Oximetry (%) 98 Oxygen Delivery Method Room Air Intake Visit Reasons: Anxiety, Tension Physical Therapy Asst Required: No Accompanied by: Self / Same As Patient Allergies No Known Allergies [No Known Allergies*] Allergy (Verified 12/31/23 15:27) Tobacco use date assessed: 12/31/23 Dental Screening Dental Screen Date: 12/31/23 Did you have a dental visit in the last 12 months?: Yes Did you have a dental problem in the last 6 months where you did not have access to dental care?: No Was dental information given to patient?: Patient has dentist HPI Anxiety, Tension HPI Details 53-year-old obese female with a history of mood disorder having GERD and constipation and anemia last seen in 03/02/2023 for physical exam patient comes in for follow-up. Mammograms up-to-date colonoscopy is up-to-date. patient had anxiety and had episodes with a room mate and is better. does not need any hyroxyzine right now. [facility] Medical History Colon cancer screening Dysphagia Mental and behavioral problem Obesity (BMI 30-39.9) Anemia Mood disorder Surgical History Hx of colonoscopy History of esophagogastroduodenoscopy (EGD) Surgical history unknown Family History Father Diabetes Skin cancer Hypertension Myocardial infarct, Onset Age: 73 Mother Breast cancer Skin cancer Graves disease Paternal Grandfather Diabetes Sister Skin cancer Social History Housing: Apartment Patient Tobacco Use Status: Never used Tobacco e-Cigarette/Vaping Use: Never Used Second Hand Smoke Exposure: No Current occupational status: disabled Cognitive needs: Yes Hearing needs: Yes Vision needs: Yes Questionnaire PHQ-9 Over the last 2 weeks, how often have you been bothered by any of the following problems? 1. Little interest or pleasure in doing things: not at all 2. Feeling down, depressed, or hopeless: not at all 3. Trouble falling or staying asleep, or sleeping too much: not at all 4. Feeling tired or having little energy: not at all 5. Poor appetite or overeating: not at all 6. Feeling bad about yourself - or that you are a failure or have let yourself or your family down: not at all 7. Trouble concentrating on things, such as reading the newspaper or watching television: not at all 8. Moving or speaking so slowly that other people could have noticed. Or the opposite - being so fidgety or restless that you have been moving around a lot more than usual: not at all 9. Thoughts that you would be better off or of hurting yourself in some way: not at all Total score: 0 Depression Screening Interpretation: Negative Depression Screening Done: Yes Source: Developed by Drs. Bryan Wheat, Rissa Da Silva, Macario Haley and colleagues, with an educational romeo from [employer]. Thrive Questionnaire Date Thrive assessed: 12/31/23 I am a: Parent/Caregiver What is your living situation today?: I have a steady place to live Within the past 12 months, did the food you bought not last and you didn't have the money to get more?: Never true Within the past 12 months, did you worry whether your food would run out before you got money to buy more?: Never true Do you have trouble paying for medicines?: No Do you have trouble getting transportation to medical appointments?: No Do you have trouble paying your heating and electricity bill?: No Do you have trouble taking care of your child, family member or friend?: No Do you have trouble with day-to-day activities such as bathing, preparing meals, shopping, managing finances, etc.?: No Are you currently unemployed and looking for a job?: I choose not to answer this question Are you interested in more education?: No Please select the resources that you would like help with: None Currently or been in a relationship where the following occur: No concerns reported THRIVE Score: 0 AUDIT C Alcohol Use Questionnaire (AUDIT-C) 1. How often do you have a drink containing alcohol?: Never 3. How often do you have six or more drinks on one occasion?: Never Total Score: 0 ZE-7 AMB Questionnaire ZE-7 Date ZE - 7 assessed: 12/31/23 Feeling nervous, anxious, or on edge: 0 = Not at all Not being able to stop or control worryin = Not at all Worrying too much about different things: 0 = Not at all Trouble relaxin = Not at all Being so restless that it is hard to sit still: 0 = Not at all Becoming easily annoyed or irritable: 0 = Not at all Feeling afraid as if something awful might happen: 0 = Not at all Total ZE-7 score (0-4 normal; 5-9 mild; 10-14 moderate; 15-21 severe): 0 Source: Developed by Drs. Bryan Wheat, Rissa Da Silva, Macario Haley and colleagues, with an educational romeo from [employer]. Physical exam (Primary Care) Vital Signs: Last Vital Signs Pulse 69 12/31/23 15:27 BP 110/78 12/31/23 15:27 Pulse Ox 98 12/31/23 15:27 Oxygen Delivery Method Room Air 12/31/23 15:27 BMI result Body Mass Index 35.2 Tobacco/Smoking Status: Tobacco use Status Tobacco use date assessed 12/31/23 12/31/23 15:28 Patient Tobacco Use Status Never used Tobacco 12/31/23 15:28 e-Cigarette/Vaping Use Never Used 12/31/23 15:28 PHQ-9: PHQ-9 Score PHQ-9: Total score 0 12/31/23 16:03 Depression Screening Interpretation: Negative Thrive Assessment: Date of Thrive Assessment Date Thrive assessed 12/31/23 12/31/23 15:28 Currently or been in a relationship where the following occur: No concerns reported Const General: alert; No acute distress Eyes Conjunctivae: conjunctivae normal Resp Auscultation: clear to auscultation bilaterally Cardio Rate: regular rate Rhythm: regular rhythm GI Inspection: Yes normal to inspection Extrem General: Yes normal to inspection and No edema Immunizations tetanus-diphtheria toxoids-Td 2 Lf unit-2 Lf unit/0.5 mL IM suspension Performing Provider: Mal Potter MD [place] [facility] [place] [facility] Administered by: MELISSA Sierra on 12/31/23 16:25 Dose Route Admin Location Dispensed Lot Number Expiration Date [employer]DC [employer] Machine Operator 0.5 mL IM Left Deltoid 0.5 mL [id number] 05/23/24 [address]-8 [employer] VIS Given Date VIS Provided VIS Publication Date 12/31/23 Single Vaccine 20 Eligibility Eligibility Date Funding Source Not VFC Eligible 12/31/23 State funds Assessment and Plan Assessment & Plan (1) Obesity (BMI 30-39.9): Code(s): E66.9 - Obesity, unspecified Plan: Diet and exercise (2) Iron deficiency anemia: Code(s): D50.9 - Iron deficiency anemia, unspecified Plan: Discussed about needing the iron and vitamin-C regularly (3) Mood disorder: Code(s): F39 - Unspecified mood [affective] disorder Plan: Patient is on medication and discussed the importance of counseling and therapy. (4) GERD (gastroesophageal reflux disease): Comment: cont ppi-avoid culprits- Code(s): K21.9 - Gastro-esophageal reflux disease without esophagitis Plan: Avoid the foods that causes that usually spicy foods, tomato products, juices, coffee, soda and foods that your sensitive to. After eating do not lie down, allow 3-4 hours before in lie down. And keep the head of bed above 30 degrees to avoid the acid from going up. (5) Constipation: Comment: bowel regimen- [facility] Code(s): K59.00 - Constipation, unspecified Plan: Three rules for constipation 1. Diet need to have a high fiber diet less of meat 2. Increase oral fluids 3. Exercise placed on senna and Colace Orders: Orders Complete Blood Count Auto Diff 3 Months D50.9 - Iron deficiency anemia, unspecified Ferritin 3 Months D50.9 - Iron deficiency anemia, unspecified Lipid Panel 3 Months D50.9 - Iron deficiency anemia, unspecified, E78.00 - Pure hypercholesterolemia, unspecified Reticulocyte Count 3 Months D50.9 - Iron deficiency anemia, unspecified Vitamin B12 and Folate 3 Months D50.9 - Iron deficiency anemia, unspecified Td State Immunization Today Z23 - Encounter for immunization Medications: New tetanus-diphtheria toxoids-Td 0.5 mL IM ONCE 0.5 mL 0RF Z23 - Encounter for immunization cyanocobalamin (vitamin B-12) 1,000 mcg PO DAILY 30 caps 3RF E53.8 - Deficiency of other specified B group vitamins Coding Level of Care Code Est Pt Level 4 (08112) Diagnoses Obesity (BMI 30-39.9) E66.9 Iron deficiency anemia D50.9 Mood disorder F39 GERD (gastroesophageal reflux disease) K21.9 Constipation K59.00
== END 2023-12-31 16:23 | disposition home or self-care (01) ==
PROVIDERS: PCP Internal Medicine; Visit Provider Internal Medicine
DX: F39 Unspecified mood [affective] disorder (principal); D50.9 Iron deficiency anemia, unspecified; E66.9 Obesity, unspecified; Z68.35 Body mass index [BMI] 35.0-35.9, adult; Z23 Encounter for immunization; K21.9 Gastro-esophageal reflux disease without esophagitis; K59.00 Constipation, unspecified

== ENCOUNTER → 2023-12-31 15:19 | Outpatient (BNVA) | payer OTHER, SELFPAY | PROVIDERS: PCP Internal Medicine; Visit Provider Internal Medicine | DX: Z23 Encounter for immunization (principal); E66.9 Obesity, unspecified; D50.9 Iron deficiency anemia, unspecified; F39 Unspecified mood [affective] disorder; K21.9 Gastro-esophageal reflux disease without esophagitis; K59.00 Constipation, unspecified | CPT/HCPCS: 90471; 90714; 99212 ==

== ENCOUNTER 2024-01-14 14:41 | Outpatient (REF) | payer OTHER, SELFPAY ==
--- NOTE | ~2024-01-14 | XR_ITS ---
EXAMINATION: XR THORACIC SPINE CLINICAL INFORMATION: Thoracic spine pain. COMPARISON: None available. TECHNIQUE: AP, lateral, and swimmer's views of the thoracic spine. FINDINGS: Mild levocurvature of the lower lumbar spine. The thoracic kyphosis is maintained. No acute fracture or subluxation. No loss of vertebral body or intervertebral disc height. Tiny endplate osteophytes within the lower thoracic spine. No concerning lytic or blastic osseous lesion. The visualized lungs are clear. XR/XR thoracic spine 2V IMPRESSION: Minimal degenerative disc disease within the lower thoracic spine. Electronically signed by: Chilango Cordova MD 02/24/2024 10:05 AM [facility]
== END 2024-01-14 14:42 | disposition home or self-care (01) ==
LOC: HO.XRAY 14:41
PROVIDERS: PCP Internal Medicine; Visit Provider Internal Medicine
DX: M54.6 Pain in thoracic spine (principal); K80.20 Calculus of gallbladder without cholecystitis without obstruction; N94.6 Dysmenorrhea, unspecified; D50.9 Iron deficiency anemia, unspecified; K21.9 Gastro-esophageal reflux disease without esophagitis; E66.9 Obesity, unspecified; F39 Unspecified mood [affective] disorder; E53.8 Deficiency of other specified B group vitamins; R79.89 Other specified abnormal findings of blood chemistry
CPT/HCPCS: 72070; 99212

== ENCOUNTER 2024-01-14 14:41 | Outpatient (AMB) | payer OTHER, SELFPAY ==
--- NOTE | 2024-01-14 15:13 | A.OFFPC_ITS ---
Vital Signs 01/14/24 15:14 Height 5 ft 4 in Weight 201 lb 6 oz BMI 34.6 BP 130/76 Blood Pressure Location Lt brachial Position Sitting Pulse 68 Pulse Source Pulse Oximeter Pulse Oximetry (%) 99 Oxygen Delivery Method Room Air Intake Visit Reasons: [facility] 01/04 stone in the gallbladder Intake Note: Patient is here to follow-up after a visit the emergency department at [facility] on 01/05/24 Optical Design Engineer Required: Yes Optical Design Engineer Language: Nutritional Services Director Name: Yobany (sister) Information Interpreted: non-clinical & clinical Bakery Worker Conveyor Line: Present Accompanied by: Sister Allergies No Known Allergies [No Known Allergies*] Allergy (Verified 01/14/24 15:14) Medication List - Last Reconciled 01/14/24 by Mal Potter MD ascorbic acid (vitamin C) 500 mg PO BID 30 days cyanocobalamin (vitamin B-12) 1,000 mcg PO DAILY cyclobenzaprine 5 mg PO BEDTIME PRN ferrous sulfate (Feosol) 325 mg PO BID fluoxetine 20 mg (5 mL) PO DAILY 90 days fluticasone propionate 50 mcg/actuation (Flonase Allergy Relief) 2 sprays intranasal DAILY [Gloves medium As directed large pull-up, wipes, gloves, panty liners] hydroxyzine HCl 10 mg PO TID PRN ketoconazole 2% 1 appl topical DAILY [Large pull up large pull-up, wipes, gloves, panty liners] methylcellulose (laxative) (Citrucel) 500 mg PO BID metronidazole 0.75% 1 appl topical BID omeprazole 20 mg PO DAILY 90 days [Panty liners As directed large pull-up, wipes, gloves, panty liners] sennosides-docusate sodium 8.6-50 mg (Senna-S) 2 tab-caps (2 x 8.6-50 mg) PO BEDTIME 90 days triamcinolone acetonide 0.025% 1 appl topical BID [Wipes large pull-up, wipes, gloves, panty liners] Tobacco use date assessed: 01/14/24 Dental Screening Dental Screen Date: 12/31/23 HPI [facility] 01/04 stone in the gallbladder HPI Details 53-year-old obese female coming in for [facility]-up. Has a history of mood disorder iron deficiency anemia GERD. Review of the notes ER visit January 04 with abdominal pain and nausea in setting of menses had loose stools patient on fluoxetine. [facility] Medical History Colon cancer screening Dysphagia Mental and behavioral problem Obesity (BMI 30-39.9) Anemia Mood disorder Surgical History Hx of colonoscopy History of esophagogastroduodenoscopy (EGD) Surgical history unknown Family History Father Diabetes Skin cancer Hypertension Myocardial infarct, Onset Age: 73 Mother Breast cancer Skin cancer Graves disease Paternal Grandfather Diabetes Sister Skin cancer Social History Housing: Apartment Patient Tobacco Use Status: Never used Tobacco e-Cigarette/Vaping Use: Never Used Second Hand Smoke Exposure: No service: No Current occupational status: disabled Cognitive needs: Yes Hearing needs: Yes Vision needs: Yes Questionnaire Thrive Questionnaire Date Thrive assessed: 12/31/23 Are you currently unemployed and looking for a job?: I choose not to answer this question ZE-7 AMB Questionnaire ZE-7 Date ZE - 7 assessed: 12/31/23 Source: Developed by Drs. Bryan Wheat, Rissa Da Silva, Macario Haley and colleagues, with an educational romeo from [employer]. Physical exam (Primary Care) Vital Signs: Last Vital Signs Pulse 68 01/14/24 15:14 BP 130/76 01/14/24 15:14 Pulse Ox 99 01/14/24 15:14 Oxygen Delivery Method Room Air 01/14/24 15:14 BMI result Body Mass Index 34.6 Tobacco/Smoking Status: Tobacco use Status Tobacco use date assessed 01/14/24 01/14/24 15:19 Patient Tobacco Use Status Never used Tobacco 01/14/24 15:13 e-Cigarette/Vaping Use Never Used 01/14/24 15:13 Thrive Assessment: Date of Thrive Assessment Date Thrive assessed 12/31/23 01/14/24 15:13 Const General: alert; No acute distress Eyes Conjunctivae: conjunctivae normal Resp Auscultation: clear to auscultation bilaterally Cardio Rate: regular rate Rhythm: regular rhythm GI Inspection: Yes normal to inspection Extrem General: Yes normal to inspection and No edema Coding Level of Care Code Est Pt Level 4 (28754) Diagnoses Dysmenorrhea N94.6 Iron deficiency anemia D50.9 GERD (gastroesophageal reflux disease) K21.9 Obesity (BMI 30-39.9) E66.9 Mood disorder F39 Cholelithiasis K80.20 Vitamin B 12 deficiency E53.8 Thoracic back pain M54.6 Assessment & Plan Assessment & Plan (1) Dysmenorrhea: Code(s): N94.6 - Dysmenorrhea, unspecified Category: Medical Plan: Patient was advised to follow-up with gynecology (2) Iron deficiency anemia: Code(s): D50.9 - Iron deficiency anemia, unspecified Category: Medical Plan: Patient has been placed on iron and vitamin-C (3) GERD (gastroesophageal reflux disease): Comment: cont ppi-avoid culprits- Code(s): K21.9 - Gastro-esophageal reflux disease without esophagitis Category: Medical Plan: Avoid the foods that causes that usually spicy foods, tomato products, juices, coffee, soda and foods that your sensitive to. After eating do not lie down, allow 3-4 hours before in lie down. And keep the head of bed above 30 degrees to avoid the acid from going up. Advised to start on the omeprazole. (4) Obesity (BMI 30-39.9): Code(s): E66.9 - Obesity, unspecified Category: Medical Plan: Diet and exercise (5) Mood disorder: Code(s): F39 - Unspecified mood [affective] disorder Category: Medical Plan: Continue with counseling and therapy. (6) Cholelithiasis: Code(s): K80.20 - Calculus of gallbladder without cholecystitis without obstruction Category: Medical Plan: low fat diet requested ultrasound test (7) Vitamin B 12 deficiency: Code(s): E53.8 - Deficiency of other specified B group vitamins Category: Medical Plan: vitamin b 12 1000 mcg QD (8) Thoracic back pain: Code(s): M54.6 - Pain in thoracic spine Category: Medical Plan: xray to be done, heat helps and exercises Orders: Orders US abdomen complete Today K80.20 - Calculus of gallbladder without cholecystitis without obstruction, R79.89 - Other specified abnormal findings of blood chemistry XR thoracic spine 2V Today M54.6 - Pain in thoracic spine
[2024-01-14 15:14] VITALS: BP 130/76; PULSE 68; O2SAT 99; BMI 34.6
== END 2024-01-14 16:04 | disposition home or self-care (01) ==
PROVIDERS: PCP Internal Medicine; Visit Provider Internal Medicine
DX: N94.6 Dysmenorrhea, unspecified (principal); F39 Unspecified mood [affective] disorder; E66.811 Obesity, class 1; Z68.34 Body mass index [BMI] 34.0-34.9, adult; D50.9 Iron deficiency anemia, unspecified; K21.9 Gastro-esophageal reflux disease without esophagitis; K80.20 Calculus of gallbladder without cholecystitis without obstruction; E53.8 Deficiency of other specified B group vitamins; M54.6 Pain in thoracic spine

== ENCOUNTER 2024-02-03 07:15 | Outpatient (REF) | payer OTHER, SELFPAY ==
--- NOTE | ~2024-02-03 | US_ITS ---
EXAMINATION: US ABDOMEN COMPLETE CLINICAL INFORMATION: Other specified abnormal findings of blood chemistry. COMPARISON: None available. TECHNIQUE: Real-time imaging of the abdominal viscera. FINDINGS: PANCREAS: Normal. ABDOMINAL AORTA: The proximal, mid, and distal segments are normal in caliber. INFERIOR VENA CAVA: Visualized portions are normal. LIVER: Normal. The liver is normal in size. The liver contour is normal. Parenchymal echogenicity is normal. No focal hepatic lesion. There is no intrahepatic biliary duct dilatation seen. GALLBLADDER: Cholelithiasis. The gallbladder is physiologically distended. Multiple mobile gallstones are present. No evidence of gallbladder wall thickening or pericholecystic fluid. COMMON BILE DUCT: Normal in caliber measuring 0.5 cm in diameter. RIGHT KIDNEY: Right extrarenal pelvis. No hydronephrosis. No renal calculi or focal parenchymal lesions. The kidney measures 11.0 cm in maximum dimension. LEFT KIDNEY: Normal. No hydronephrosis. No renal calculi or focal parenchymal lesions. The kidney measures 11.9 cm in maximum dimension. SPLEEN: Normal. The spleen measures 10.6 cm in maximum dimension. FREE FLUID: None. US/US abdomen complete IMPRESSION: Cholelithiasis without any evidence for gallbladder wall thickening or pericholecystic fluid. CBD within normal limits for size. Other incidental findings as noted above. Electronically signed by: Radu Dickson MD 02/17/2024 09:45 AM EST
[2024-02-03 09:18] LABS: Basophils Absolute Auto 0.1 X10*3/uL (0.0-0.2); Basophils Percent Auto 0.6 % (0-2); Monocytes Absolute Auto 0.4 X10*3/uL (0.1-1.2); SCAN SMEAR FLAG 1
[2024-02-03 09:20] LABS: Eosinophils Percent Auto 0.2 % (0-4); Hematocrit 39.8 % (37.0-47.0); Hemoglobin 12.3 g/dl (12.0-16.0); Imm Gran Abs Auto 0.02 X10*3/uL (0.00-0.03); Imm Gran Pct Auto 0.2 % (0.0-0.4); Immature Retic Fraction 8.1 % (3.0-15.9); Lymphocytes Absolute Auto 1.4 X10*3/uL (1.2-4.9); Lymphocytes Percent Auto 16.7 % (20-40); MANUAL DIFF FLAG SCAN; Mean Corpuscular HGB Conc 30.9 g/dl (31.0-35.0); Mean Corpuscular Hemoglobin 22.6 pg (27.0-33.0); Monocytes Percent Auto 4.6 % (2-11); Neutrophils Absolute Auto 6.3 x10*3/uL (2.0-8.3); Neutrophils Percent Auto 77.7 % (45-73); Platelet Count 241 X10*3/uL (160-400); Red Blood Count 5.45 X10*6/uL (4.20-5.50); Retic HGB Equivalent 28.6 pg (30.0-35.0); Reticulocyte Percent 0.7 % (0.5-1.8); Reticulocytes Absolute 0.037 X10*6/uL (0.026-0.095); White Blood Count 8.1 X10*3/uL (4.8-10.8)
[2024-02-03 09:36] LABS: PLT ABN DIST 1
[2024-02-03 09:49] LABS: SLIDE REVIEW VERIFIED
[2024-02-03 09:58] LABS: Cholesterol 165 mg/dL (<200); HDL Cholesterol 57 mg/dL (>40); LDL Cholesterol Calculated 90 mg/dL (<100); Triglycerides 91 mg/dL (<150)
[2024-02-03 10:43] LABS: Ferritin 14 ng/mL (10-250)
[2024-02-03 10:54] LABS: Folate 16.2 ng/mL (> or = 4.0); Vitamin B12 651 pg/mL (200-900)
[2024-02-05 23:25] LABS: TS Negative Control Passed; TS Panel A 0; TS Panel B 2; TS Positive Control Passed; TSpotTB Negative (Negative)
== END 2024-02-03 07:16 | disposition home or self-care (01) ==
LOC: HO.US 07:15
PROVIDERS: PCP Internal Medicine; Visit Provider Internal Medicine
DX: Z00.00 Encounter for general adult medical examination without abnormal findings (principal); R79.89 Other specified abnormal findings of blood chemistry; K80.20 Calculus of gallbladder without cholecystitis without obstruction; D50.9 Iron deficiency anemia, unspecified; E78.00 Pure hypercholesterolemia, unspecified
CPT/HCPCS: 36415; 76700; 80061; 82607; 82728; 82746; 85025; 85045; 86481

== ENCOUNTER 2024-02-17 08:30 | Outpatient (AMB) | payer OTHER, SELFPAY ==
[2024-02-17 09:07] VITALS: BP 112/78; PULSE 75; O2SAT 98; BMI 34.2
--- NOTE | 2024-02-17 09:07 | MHC.PC.OV ---
Vital Signs 02/17/24 09:07 Height 5 ft 4 in Weight 199 lb BMI 34.2 BP 112/78 Blood Pressure Location Lt brachial Position Sitting Pulse 75 Pulse Source Pulse Oximeter Pulse Oximetry (%) 98 Oxygen Delivery Method Room Air Intake Visit Reasons: PE Allergies No Known Allergies [No Known Allergies*] Allergy (Verified 02/17/24 09:09) Medication List - Last Reconciled 02/17/24 by Mal Potter MD ascorbic acid (vitamin C) 500 mg PO BID 30 days cyanocobalamin (vitamin B-12) 1,000 mcg PO DAILY ferrous sulfate (Feosol) 325 mg PO BID fluoxetine 40 mg PO DAILY [Gloves medium As directed large pull-up, wipes, gloves, panty liners] hydroxyzine HCl 10 mg PO BID PRN [Large pull up large pull-up, wipes, gloves, panty liners] methylcellulose (laxative) (Citrucel) 500 mg PO BID metronidazole 0.75% 1 appl topical BID [Panty liners As directed large pull-up, wipes, gloves, panty liners] quetiapine (Seroquel) 25 mg PO BID quetiapine 25 mg PO TID sennosides-docusate sodium 8.6-50 mg (Senna-S) 2 tab-caps (2 x 8.6-50 mg) PO BEDTIME 90 days triamcinolone acetonide 0.025% 1 appl topical BID [Wipes large pull-up, wipes, gloves, panty liners] Tobacco use date assessed: 02/17/24 Dental Screening Dental Screen Date: 12/31/23 HPI PE HPI Details 53-year-old obese female with a mental and behavioral problem iron deficiency anemia GERD coming in for physical exam. Last seen in 01/14/2024. Patient complains some thoracic back pain and x-ray was requested. Meanwhile mammogram is up-to-date colonoscopy 08/30/2022 done up-to-date. occ dizzy PFSH Medical History (Updated 02/17/24 @ 09:45 by Mal Potter MD) Anemia Acute sore throat Nasal congestion Viral illness Encounter for screening colonoscopy Colon cancer screening Dysphagia Mental and behavioral problem Obesity (BMI 30-39.9) Mood disorder Surgical History Hx of colonoscopy History of esophagogastroduodenoscopy (EGD) Surgical history unknown Family History Father Diabetes Skin cancer Hypertension Myocardial infarct, Onset Age: 73 Mother Breast cancer Skin cancer Graves disease Paternal Grandfather Diabetes Sister Skin cancer Social History Housing: Apartment Patient Tobacco Use Status: Never used Tobacco Tobacco use type: Cigarette e-Cigarette/Vaping Use: Never Used Second Hand Smoke Exposure: No service: No Current occupational status: disabled Cognitive needs: Yes Hearing needs: Yes Vision needs: Yes Questionnaire PHQ-9 Over the last 2 weeks, how often have you been bothered by any of the following problems? 1. Little interest or pleasure in doing things: nearly every day 2. Feeling down, depressed, or hopeless: more than half the days 3. Trouble falling or staying asleep, or sleeping too much: several days 4. Feeling tired or having little energy: several days 5. Poor appetite or overeating: several days 6. Feeling bad about yourself - or that you are a failure or have let yourself or your family down: several days 7. Trouble concentrating on things, such as reading the newspaper or watching television: several days 8. Moving or speaking so slowly that other people could have noticed. Or the opposite - being so fidgety or restless that you have been moving around a lot more than usual: more than half the days 9. Thoughts that you would be better off or of hurting yourself in some way: not at all Total score: 12 Source: Developed by Drs. Bryan Wheat, Rissa Da Silva, Macario Haley and colleagues, with an educational romeo from [employer]. Thrive Questionnaire Date Thrive assessed: 02/10/24 I am a: Patient What is your living situation today?: I have a steady place to live Within the past 12 months, did the food you bought not last and you didn't have the money to get more?: Never true Within the past 12 months, did you worry whether your food would run out before you got money to buy more?: Never true Do you have trouble paying for medicines?: No Do you have trouble getting transportation to medical appointments?: No Do you have trouble paying your heating and electricity bill?: No Do you have trouble taking care of your child, family member or friend?: No Do you have trouble with day-to-day activities such as bathing, preparing meals, shopping, managing finances, etc.?: Yes Are you currently unemployed and looking for a job?: I choose not to answer this question Are you interested in more education?: No Please select the resources that you would like help with: None Currently or been in a relationship where the following occur: No concerns reported THRIVE Score: 0 AUDIT C Alcohol Use Questionnaire (AUDIT-C) 1. How often do you have a drink containing alcohol?: Never Total Score: 0 ZE-7 AMB Questionnaire ZE-7 Date ZE - 7 assessed: 12/31/23 Feeling nervous, anxious, or on edge: 3 = Nearly every day Not being able to stop or control worryin = Nearly every day Worrying too much about different things: 3 = Nearly every day Trouble relaxin = Nearly every day Being so restless that it is hard to sit still: 1 = Several days Becoming easily annoyed or irritable: 1 = Several days Feeling afraid as if something awful might happen: 3 = Nearly every day Total ZE-7 score (0-4 normal; 5-9 mild; 10-14 moderate; 15-21 severe): 17 Source: Developed by Drs. Bryan Wheat, Rissa Da Silva, Macario Haley and colleagues, with an educational romeo from [employer]. Review of Systems Const Denies poor appetite and Denies weakness Eyes Denies no additional complaints ENT Reports Normal hearing present, Denies dizziness, Denies nasal congestion, Denies tinnitus and Denies sore throat Card Denies chest pain, Denies syncope, Denies rapid heart rate and Denies dyspnea Resp Denies cough and Denies dyspnea GI Denies change in stool character, Reports constipation, Denies diarrhea, Denies nausea and Denies vomiting Denies urinary frequency, Denies difficulty voiding and Denies dysuria Neuro Reports Normal hearing present, Denies confusion, Denies dizziness, Denies syncope and Denies weakness Psych Denies confusion Physical exam (Primary Care) Vital Signs: Last Vital Signs Pulse 75 02/17/24 09:07 BP 112/78 02/17/24 09:07 Pulse Ox 98 02/17/24 09:07 Oxygen Delivery Method Room Air 02/17/24 09:07 BMI result Body Mass Index 34.2 Tobacco/Smoking Status: Tobacco use Status Tobacco use date assessed 02/17/24 02/17/24 09:18 Patient Tobacco Use Status Never used Tobacco 02/17/24 09:08 Tobacco use type Cigarette 02/17/24 09:18 e-Cigarette/Vaping Use Never Used 02/17/24 09:08 PHQ-9: PHQ-9 Score PHQ-9: Total score 12 02/17/24 09:18 Thrive Assessment: Date of Thrive Assessment Date Thrive assessed 02/10/24 02/17/24 09:08 Currently or been in a relationship where the following occur: No concerns reported Const General: No confusion Orientation/consciousness: No confusion HENMT Head: Yes normocephalic Ears: external ears normal and TM's normal bilaterally Face and sinus: Yes normal facial exam Mouth: moist mucous membranes Throat: Yes tonsils normal Eyes Conjunctivae: conjunctivae normal Pupils: Equal, round and reactive pupils present and Pupil accommodation reflex normal Direct Ophthalmoscopy: normal light reflex Neck Neck: No lymphadenopathy Thyroid: Thyroid normal Chest Chest palpation & inspection: normal inspection of the chest Resp Effort & Inspection: normal respiratory effort and no audible wheezes Auscultation: clear to auscultation bilaterally, no crackles, no wheezes and lung sounds not diminished Cardio Rate: regular rate Rhythm: regular rhythm Peripheral pulses: radial pulses present and dorsalis pedis present GI Palpation (GI): no masses Auscultation: normal bowel sounds and normoactive bowel sounds Rectal Exam - Female: deferred Back/Spine/Pelvis Other: Noted bruises on the right side of the abdomen x2 3 x 2 cm and 2 x 1 cm as well as on the left arm 1 x 1 cm Skin General skin exam: no rashes or lesions noted Rashes: no rashes Neuro General: No confusion Cranial nerves: Yes Equal, round and reactive pupils present and Yes Normal hearing present Cognition (Neuro): normal cognition Gait exam (Neuro): Normal gait present Motor exam (neuro): 5/5 motor strength present throughout Deep tendon reflexes (DTR's): Right brachioradialis reflex intensity grade: 2+, Left brachioradialis reflex intensity grade: 2+, Right patellar reflex intensity grade: 2+ and Left patellar reflex intensity grade: 2+ Extrem General: No edema Office Procedures Flu Questionnaire Does the patient have a severe egg allergy?: No Does the patient have severe life threatening allergies?: No Does the patient have a fever or illness today?: No Has the patient ever had Guillain-[place] Syndrome?: No Has the patient ever had any past reaction to a flu shot?: No Immunizations Fluarix Triv 2540-0024 (PF) 45 mcg (15 mcg x 3)/0.5 mL IM syringe Performing Provider: Mal Potter MD [facility] [place] Administered by: Ramya Roa CMA on 02/17/24 09:19 Dose Route Admin Location Dispensed Lot Number Expiration Date NDC Fruit Receiver 0.5 mL IM Left Deltoid 0.5 mL [id number] 10/10/24 [id number] [employer] VIS Given Date VIS Provided VIS Publication Date 02/17/24 Single Vaccine 20 Eligibility Eligibility Date Funding Source Not [facility] Eligible 02/17/24 Private Coding Level of Care Code Est Pt Prev Care 40-64y(00049) Diagnoses Annual physical exam Z00.00 Obesity (BMI 30-39.9) E66.9 Iron deficiency anemia, unspecified iron deficiency anemia type D50.9 Iron deficiency anemia type: unspecified iron deficiency Calculus of gallbladder without cholecystitis without obstruction K80.20 Cholelithiasis location: gallbladder Cholecystitis presence: without cholecystitis Biliary obstruction: without biliary obstruction Mental and behavioral problem F48.9; F69 Assessment & Plan Assessment & Plan (1) Annual physical exam: Code(s): Z00.00 - Encounter for general adult medical examination without abnormal findings Category: Medical Plan: Patient is advised to eat healthy, keep well hydrated, keep active and have adequate sleep. (2) Obesity (BMI 30-39.9): Code(s): E66.9 - Obesity, unspecified Category: Medical Plan: diet and exercise (3) Iron deficiency anemia: Code(s): D50.9 - Iron deficiency anemia, unspecified Category: Medical Qualifiers: Iron deficiency anemia type: unspecified iron deficiency Qualified Code(s): D50.9 - Iron deficiency anemia, unspecified Plan: on iron and vitamin c - resolving (4) Cholelithiasis: Code(s): K80.20 - Calculus of gallbladder without cholecystitis without obstruction Category: Medical Qualifiers: Cholelithiasis location: gallbladder Cholecystitis presence: without cholecystitis Biliary obstruction: without biliary obstruction Qualified Code(s): K80.20 - Calculus of gallbladder without cholecystitis without obstruction Plan: low fat diet and exercise (5) Mental and behavioral problem: Comment: GEMMA Rojas DOOR REPAIRMAN Code(s): F48.9 - Nonpsychotic mental disorder, unspecified; F69 - Unspecified disorder of adult personality and behavior Category: Medical Plan: continue to ff up with psychiatry and counselling Orders: Orders Influenza [id number] Immunization Today Z23 - Encounter for immunization Medications: Changed From hydroxyzine HCl 10 mg PO BID PRN itching To hydroxyzine HCl 25 mg PO BID PRN 60 tabs 0RF itching Refilled [Wipes] large pull-up, wipes, gloves, panty liners 3 ea 12RF R32 - Unspecified urinary incontinence
== END 2024-02-17 09:49 | disposition home or self-care (01) ==
LOC: HO.HMCH 08:31
PROVIDERS: PCP Internal Medicine; Visit Provider Internal Medicine
DX: Z00.00 Encounter for general adult medical examination without abnormal findings (principal); E66.9 Obesity, unspecified; Z68.34 Body mass index [BMI] 34.0-34.9, adult; D50.9 Iron deficiency anemia, unspecified; K80.20 Calculus of gallbladder without cholecystitis without obstruction; F48.9 Nonpsychotic mental disorder, unspecified; F69 Unspecified disorder of adult personality and behavior

== ENCOUNTER → 2024-02-17 08:30 | Outpatient (BNVA) | payer OTHER, SELFPAY | PROVIDERS: PCP Internal Medicine; Visit Provider Internal Medicine | DX: Z00.00 Encounter for general adult medical examination without abnormal findings (principal); Z23 Encounter for immunization; E66.9 Obesity, unspecified; D50.9 Iron deficiency anemia, unspecified; K80.20 Calculus of gallbladder without cholecystitis without obstruction; F48.9 Nonpsychotic mental disorder, unspecified; F69 Unspecified disorder of adult personality and behavior | CPT/HCPCS: 90471; 90656; 96127; 99396 ==

== ENCOUNTER 2024-03-15 13:32 | Outpatient (AMB) | payer OTHER, SELFPAY ==
[2024-03-15 13:44] VITALS: BP 110/62; BMI 34.1
--- NOTE | 2024-03-15 13:44 | A.OFFVIS_ITS ---
Vital Signs 03/15/24 13:44 Height 5 ft 4 in Weight 198 lb 6.656 oz BMI 34.1 BP 110/62 Intake Visit Reasons: AUB/Referral Senior Security Analyst Required: Yes Senior Security Analyst Language: Sewer Line Repairer Services: Senior Security Analyst Present (in person) Senior Security Analyst Name: Barbara TORRES Information Interpreted: non-clinical & clinical Accompanied by: Sister Allergies No Known Allergies [No Known Allergies*] Allergy (Verified 03/15/24 13:51) Is last menstrual period known: Yes Last menstrual period: 02/24/24 HPI Comments Details: Presenting complaining of hot flashes, night sweats, insomnia and anxiety, the patient was started on fluoxetine for psychiatric symptoms and was referred here to rule out menopause related symptom. The patient is having regular menstrual cycles with no recent changes. Last mammogram was in 07/04 [facility] Medical History Anemia Acute sore throat Nasal congestion Viral illness Encounter for screening colonoscopy Colon cancer screening Dysphagia Mental and behavioral problem Obesity (BMI 30-39.9) Mood disorder Surgical History Hx of colonoscopy History of esophagogastroduodenoscopy (EGD) Surgical history unknown Family History Father Diabetes Skin cancer Hypertension Myocardial infarct, Onset Age: 73 Mother Breast cancer Skin cancer Graves disease Paternal Grandfather Diabetes Sister Skin cancer Social History Housing: Apartment Patient Tobacco Use Status: Never used Tobacco Tobacco use type: Cigarette e-Cigarette/Vaping Use: Never Used Second Hand Smoke Exposure: No service: No Current occupational status: disabled Cognitive needs: Yes Hearing needs: Yes Vision needs: Yes Female Reproductive History Menstrual Date of last menstrual period: 02/24/24 Review of Systems Const All systems reviewed & are unremarkable except as noted in HPI and below Reports as per HPI and Reports no additional complaints GI Reports no additional complaints Reports no additional complaints Physical Exam Vital Signs: Last Vital Signs BP 110/62 03/15/24 13:44 BMI result Body Mass Index 34.1 Assessment & Plan Assessment & Plan (1) Hot flashes: Code(s): R23.2 - [place] Category: Medical Plan: Discussed with the patient the options of treatment of hot flashes including hormonal replacement therapy, all the pros, cons, risks and benefits (benefits= prevention of hot flashes, atrophic vaginitis, osteoporosis, decrease colon ca risk; also discussed with the patient the risks of ID, Breast ca, DVT, PE, Strokes). Since the patient is having regular menstrual cycle I recommended to defer hormone replacement therapy at this point. In addition, discussed with the patient non hormonal treatment options for hot flashes treatment in surgical menopausal patient. Options discussed with the patient include the following: SSRI/SNRIs , difficulty has been demonstrated in multiple trials clinical response is more rapid (days) than typical response to SSRI for depression (weeks), they are equally effective in natural versus surgical menopause, they have similar modest benefit for hot flashes; Paroxetine 7.5 mg per day is suggested to be as a 1st choice the SSRI/SNRI such, FDA approved for treatment of hot flashes. Citalopram 20 mg per day is another 1st choice option. Sertraline and fluoxetine are not effective options. Suggested to the patient that her sister who is accompanying her to propose to the psychiatrist to switch the patient from fluoxetine to either paroxetine or citalopram if neither of them works, suggest Effexor or gabapentin as other suggestion. Offered the patient to discuss treatment plan with her psychiatrist if they chose to do so. All questions answered, the patient verbalized understanding Coding Level of Care Code Est Pt Level 3 (03898) Diagnoses Hot flashes R23.2
== END 2024-03-15 14:15 | disposition home or self-care (01) ==
PROVIDERS: PCP Internal Medicine; Visit Provider Obstetrics & Gynecology
DX: R23.2 Flushing (principal)
CPT/HCPCS: 99213

== ENCOUNTER → 2024-03-15 13:32 | Outpatient (BNVA) | payer OTHER, SELFPAY | PROVIDERS: PCP Internal Medicine; Visit Provider Obstetrics & Gynecology | DX: R23.2 Flushing (principal); Z79.899 Other long term (current) drug therapy | CPT/HCPCS: 99212 ==

== ENCOUNTER 2024-04-25 14:36 | Outpatient (REF) | payer OTHER, SELFPAY | END 2024-04-25 14:37 | disposition home or self-care (01) | LOC: HO.LAB 14:36 | PROVIDERS: PCP Internal Medicine | DX: Z13.89 Encounter for screening for other disorder (principal) | CPT/HCPCS: 81003; 99212 ==

== ENCOUNTER 2024-04-25 14:36 | Outpatient (AMB) | payer OTHER, SELFPAY ==
--- NOTE | 2024-04-25 14:39 | AM.OFFWIN_ITS ---
Intake Vital Signs 04/25/24 14:40 Height 5 ft 4 in Weight 204 lb BMI 35.0 BP 126/76 Blood Pressure Location Rt brachial Position Sitting Pulse 71 Pulse Source Pulse Oximeter Temp 97.5 F Temp Source Oral Pulse Oximetry (%) 99 Oxygen Delivery Method Room Air Intake Visit Reasons: EP-lower back pain, depression Intake Note: Pt is here today for a walk in visit. Pt c/o lower back pain, burning when urinating since Thursday. Pt also states that when she has bowel movement she gets pain in her anal area. Patient Tobacco Use Status: Never used Tobacco Allergies No Known Allergies [No Known Allergies*] Allergy (Verified 03/15/24 13:51) HPI HPI Comments History of Present Illness Details History of Present Illness - The patient is a 53-year-old female pr esenting with lower back pain, urinary symptoms, and constipation. - Recent complaints include persistent l ower back pain and burning during urination. Symptoms began 2 days ago. - Urinary burning occurs without accompa nying fever or hematuria. - Constipation is suspected due to the r ecent history of infrequent bowel movements, with a caregiver expressing concerns about possible bowel obstruction due to the patient's minimal bowel movement, although passing gas. - History of kidney stones, although cur rent presentation lacks classic signs of renal colic. - Psychological issues, including depres maikol, are part of the patient's medical history. There are mentions of therapies and certain psychotropic medications, patients ability to express herself and how she is feeling clearly and fully is limited. Physical Exam General: Cooperative, healthy appearing, comfortable, no acute distress and well developed Orientation: Patient oriented x3 Limitations: No limitations Head: Normal to inspection Ears: Hearing grossly normal bilaterally Nose: Normal external nose present Face and sinus: Normal facial exam Eyes: Appearance normal, both eyes and all related structures Neck: Normal visual inspection and Yes full ROM Respiratory: Normal respiratory effort and able to speak in complete sentences. GI: hypoactive BS, soft, no TTP : Neg CVA bilaterally Skin: No rashes or lesions noted Neuro: Patient oriented x3 Extremities: Normal to inspection [facility] Medical History Anemia Acute sore throat Nasal congestion Viral illness Encounter for screening colonoscopy Colon cancer screening Dysphagia Mental and behavioral problem Obesity (BMI 30-39.9) Mood disorder Surgical History Hx of colonoscopy History of esophagogastroduodenoscopy (EGD) Surgical history unknown Family History Father Diabetes Skin cancer Hypertension Myocardial infarct, Onset Age: 73 Mother Breast cancer Skin cancer Graves disease Paternal Grandfather Diabetes Sister Skin cancer Social History Housing: Apartment Patient Tobacco Use Status: Never used Tobacco Tobacco use type: Cigarette e-Cigarette/Vaping Use: Never Used Second Hand Smoke Exposure: No service: No Current occupational status: disabled Cognitive needs: Yes Hearing needs: Yes Vision needs: Yes Review of Systems Const All systems reviewed & are unremarkable except as noted in HPI and below Physical Exam Vital Signs: Last Vital Signs Temp 97.5 F 04/25/24 14:40 Pulse 71 04/25/24 14:40 BP 126/76 04/25/24 14:40 Pulse Ox 99 04/25/24 14:40 Oxygen Delivery Method Room Air 04/25/24 14:40 BMI result Body Mass Index 35.0 Back/Spine/Pelvis Cervical Spine: cervical ROM normal, No cervical muscular tenderness and No Cervical spine tenderness Thoracic/Lumbar Spine: thoraco-lumbar ROM normal, No paraspinal muscle tenderness, No thoracic spinal tenderness and lumbar spinal tenderness at L1 and at L2 Results AMB Urinalysis, Automated UA Leukoctes 0 Tory/uL Last Edit by MELISSA Thompson on 04/25/24 14:53 UA Nitrite Negative Last Edit by MELISSA Thompson on 04/25/24 14:53 UA Urobilinogen 0.2 mg/dL Last Edit by MELISSA Thompson on 04/25/24 14: 53 UA Protein 0 mg/dL Last Edit by MELISSA Thompson on 04/25/24 14:53 UA pH 6.0 Last Edit by MELISSA Thompson on 04/25/24 14:53 UA Blood 0 Shukri/uL Last Edit by MELISSA Thompson on 04/25/24 14:53 UA Specific [place] 1.010 Last Edit by MELISSA Thompson on 04/25/24 14 :53 UA Ketone Negative Last Edit by MELISSA Thompson on 04/25/24 14:53 UA Bilirubin 0 mg/dL Last Edit by MELISSA Thompson on 04/25/24 14:53 UA Glucose 0 mg/dL Last Edit by MELISSA Thompson on 04/25/24 14:53 Results Reviewed Results Reviewed: Laboratory Last Values Urine pH (Auto) 6.0 04/25/24 14:51 Specific [place] (Auto) 1.010 04/25/24 14:51 Urine Protein (Auto) 0 mg/dL 04/25/24 14:51 Glucose (UA)(Auto) 0 mg/dL 04/25/24 14:51 Urine Ketones (Auto) Negative 04/25/24 14:51 Urine Blood (Auto) 0 Shukri/uL 04/25/24 14:51 Urine Nitrite (Auto) Negative 04/25/24 14:51 Urine Bilirubin (Auto) 0 mg/dL 04/25/24 14:51 Urine Urobilinogen (Auto) 0.2 mg/dL 04/25/24 14:51 Leukocyte Esterase (Auto) 0 Tory/uL 04/25/24 14:51 Assessment & Plan Assessment & Plan (1) Urinary tract infection symptoms: Code(s): R39.9 - Unspecified symptoms and signs involving the genitourinary system Plan: Plan A comprehensive approach will address both the acute and chronic issues presented by the patient. Antibiotic therapy has been initiated to empirically treat the suspected urinary tract infection pending culture results. To address constipation, increased hydration and gentle laxatives, such as Ducalax, are recommended, with an emphasis on monitoring for obstruction (enusre pt is passing gas). For lower back pain, the administration of Naproxen is advised and Flexeril, with a follow-up to confirm relief before engaging in further diagnostics. A lumbar x-ray will be conducted to evaluate for constipation and provide further diagnostic clarity. Monitoring is advised for progression of symptoms and any adverse changes, with clear instructions for escalation of care via ED, if required. Patient was informed and verbally consented to the use of an ambient scribe for clinic note documentation during this visit. (2) Low back pain: Code(s): M54.50 - Low back pain, unspecified Qualifiers: Chronicity: acute Back pain laterality: midline Sciatica presence: without sciatica Qualified Code(s): M54.50 - Low back pain, unspecified Plan: as above (3) Constipation: Comment: Code(s): K59.00 - Constipation, unspecified Qualifiers: Constipation type: unspecified constipation type Qualified Code(s): K59.00 - Constipation, unspecified Plan: as above Orders: Orders AMB Urinalysis Automated Today Z13.9 - Encounter for screening, unspecified Urine Culture Today N39.0 - Urinary tract infection, site not specified XR lumbar spine 4V min Today M54.50 - Low back pain, unspecified Medications: New cefuroxime axetil 500 mg PO Q12H 10 tabs 0RF naproxen 500 mg PO Q12H PRN 20 tabs 0RF pain cyclobenzaprine 5 mg PO Q8H PRN 10 tabs 0RF Muscle Spasm Coding Level of Care Code Est Pt Level 5 (61196) Diagnoses Urinary tract infection symptoms R39.9 Acute midline low back pain without sciatica M54.50 Chronicity: acute Back pain laterality: midline Sciatica presence: without sciatica Constipation, unspecified constipation type K59.00 Constipation type: unspecified constipation type
[2024-04-25 14:40] VITALS: BP 126/76; PULSE 71; TEMP 36.4; O2SAT 99; BMI 35.0
== END 2024-04-25 15:08 | disposition home or self-care (01) ==
PROVIDERS: PCP Internal Medicine; Visit Provider Physician Assistant
DX: R39.9 Unspecified symptoms and signs involving the genitourinary system (principal); M54.50 Low back pain, unspecified; K59.00 Constipation, unspecified

== ENCOUNTER 2024-04-25 15:06 | Outpatient (REF) | payer OTHER, SELFPAY ==
--- NOTE | ~2024-04-25 | XR_ITS ---
EXAMINATION: XR LUMBOSACRAL SPINE CLINICAL INFORMATION: M54.50 - Low back pain, unspecified COMPARISON: None available. TECHNIQUE: Five views of the lumbosacral spine. FINDINGS: Normal bone mineralization. No fractures, dislocations, subluxations, or suspicious bone lesions. No compression deformities. There is a trace levoconvex scoliosis, possibly positional. There is a normal lordosis. The sagittal alignment is normal. There is minimal diffuse disc degeneration, with more significant disc space narrowing at L4-5 and L5-S1. Facets are normally aligned. There are mild facet degenerative changes at L5-S1. Oblique views demonstrate no evidence of pars defects. The sacrum and SI joints appear normal. No soft tissue abnormalities. XR/XR lumbar spine 4V min IMPRESSION: 1. No acute findings of the lumbar spine. 2. Early spondylosis most significant at L5-S1. Electronically signed by: Don Sunshine MD 04/25/2024 03:39 [facility]
== END 2024-04-25 15:07 | disposition home or self-care (01) ==
LOC: HO.HMGCX 15:06
PROVIDERS: PCP Internal Medicine; Visit Provider Physician Assistant
DX: R39.9 Unspecified symptoms and signs involving the genitourinary system (principal); M54.50 Low back pain, unspecified; K59.00 Constipation, unspecified
CPT/HCPCS: 72110; 81003; 87086; 99212

== ENCOUNTER → 2024-04-25 15:09 | Outpatient (BNV) | payer OTHER, SELFPAY | PROVIDERS: PCP Internal Medicine; Visit Provider Radiology Diagnostic Radiology | DX: M47.817 Spondylosis without myelopathy or radiculopathy, lumbosacral region (principal) | CPT/HCPCS: 72110 ==

== ENCOUNTER 2024-05-24 08:57 | Outpatient (AMB) | payer OTHER, SELFPAY ==
--- NOTE | 2024-05-24 09:09 | MHC.PC.OV ---
Intake Visit Reasons: flu symptoms Allergies No Known Allergies [No Known Allergies*] Allergy (Verified 03/15/24 13:51) Tobacco use date assessed: 02/17/24 Dental Screening Dental Screen Date: 12/31/23 [facility] Medical History Anemia Acute sore throat Nasal congestion Viral illness Encounter for screening colonoscopy Colon cancer screening Dysphagia Mental and behavioral problem Obesity (BMI 30-39.9) Mood disorder Surgical History Hx of colonoscopy History of esophagogastroduodenoscopy (EGD) Surgical history unknown Family History Father Diabetes Skin cancer Hypertension Myocardial infarct, Onset Age: 73 Mother Breast cancer Skin cancer Graves disease Paternal Grandfather Diabetes Sister Skin cancer Social History Housing: Apartment Patient Tobacco Use Status: Never used Tobacco Tobacco use type: Cigarette e-Cigarette/Vaping Use: Never Used Second Hand Smoke Exposure: No service: No Current occupational status: disabled Cognitive needs: Yes Hearing needs: Yes Vision needs: Yes Questionnaire Thrive Questionnaire Date Thrive assessed: 02/10/24 ZE-7 AMB Questionnaire ZE-7 Date ZE - 7 assessed: 12/31/23 Source: Developed by Drs. Bryan Wheat, Rissa Da Silva, Macario Haley and colleagues, with an educational romeo from [employer]. Physical exam (Primary Care) Tobacco/Smoking Status: Tobacco use Status Tobacco use date assessed 02/17/24 02/17/24 09:18 Patient Tobacco Use Status Never used Tobacco 04/25/24 14:39 Tobacco use type Cigarette 02/17/24 09:18 e-Cigarette/Vaping Use Never Used 02/17/24 09:08 Thrive Assessment: Date of Thrive Assessment Date Thrive assessed 02/10/24 03/08/24 15:13 Coding
--- NOTE | 2024-05-24 09:12 | MHC.OFFWIV ---
Intake Vital Signs 05/24/24 09:17 Height 5 ft 4 in Weight 205 lb 6 oz BMI 35.2 BP 110/70 Blood Pressure Location Lt brachial Position Sitting Respiration 14 Pulse 73 Pulse Source Pulse Oximeter Temp 98.2 F Temp Source Oral Pulse Oximetry (%) 98 Oxygen Delivery Method Room Air Intake Visit Reasons: flu symptoms Intake Note: Cough, phlegm, chest pain. Sxs started yesterday. Everyone at home has Flu A. Patient Tobacco Use Status: Never used Tobacco Allergies No Known Allergies [No Known Allergies*] Allergy (Verified 05/24/24 09:12) Do you need a note to return to daycare/school/sports/work: No HPI HPI Comments History of Present Illness Details Here today with sister with flu-like symptoms that started yesterday. Known exposure to confirm flu a members of household. Symptoms include fever, chills, cough, mucus. Exam Awake alert NAD Sclera and conjunctiva clear bilat Nares patent, turbinates within normal limits, no sinus tenderness with palpation bilat TM intact and clear bilat MMM, pharynx WNL RRR LS CTAB mild cough Plan Tamiflu and mucinex supportive care RTO edu provided PFS Medical History Anemia Acute sore throat Nasal congestion Viral illness Encounter for screening colonoscopy Colon cancer screening Dysphagia Mental and behavioral problem Obesity (BMI 30-39.9) Mood disorder Surgical History Hx of colonoscopy History of esophagogastroduodenoscopy (EGD) Surgical history unknown Family History Father Diabetes Skin cancer Hypertension Myocardial infarct, Onset Age: 73 Mother Breast cancer Skin cancer Graves disease Paternal Grandfather Diabetes Sister Skin cancer Social History Housing: Apartment Patient Tobacco Use Status: Never used Tobacco Tobacco use type: Cigarette e-Cigarette/Vaping Use: Never Used Second Hand Smoke Exposure: No service: No Current occupational status: disabled Cognitive needs: Yes Hearing needs: Yes Vision needs: Yes Physical Exam Vital Signs: Last Vital Signs Temp 98.2 F 05/24/24 09:17 Pulse 73 02/11/25 09:17 Resp 14 05/24/24 09:17 BP 110/70 05/24/24 09:17 Pulse Ox 98 05/24/24 09:17 Oxygen Delivery Method Room Air 05/24/24 09:17 BMI result Body Mass Index 35.2 Assessment & Plan Assessment & Plan (1) Influenza A: Code(s): J10.1 - Influenza due to other identified influenza virus with other respiratory manifestations Plan / Medications: New oseltamivir (Tamiflu) 75 mg PO Q12H 5 days 10 caps 0RF guaifenesin ER (Mucinex) 600 mg PO Q12H 10 days PRN 20 tabs 0RF congestion Patient Instructions: Influenza (flu) is an infection in the lungs and breathing passages. It is caused by the influenza virus. There are different strains, or types, of the flu virus from year to year. Unlike the common cold, the flu comes on suddenly and the symptoms can be more severe. These symptoms include a cough, congestion, fever, chills, fatigue, aches, and pains. These symptoms may last for a few weeks. Although the flu can make you feel very sick, it usually doesn't cause serious health problems. Home treatment is usually all you need for flu symptoms. But your doctor may prescribe antiviral medicine to prevent other health problems, such as pneumonia, from developing. The risk of other health problems from the flu is highest for young children (under 5), older adults (over 65), women, people with long-term health conditions, people who live in nursing homes or long-term care centres, and indigenous peoples. How can you care for yourself at home? Get plenty of rest. Drink plenty of fluids. If you have to limit fluids because of a health problem, talk with your doctor before you increase the amount of fluids you drink. Take an sarl-elu-gbuoeqz pain medicine if needed, such as acetaminophen (Tylenol), ibuprofen (Advil, Motrin), or naproxen (Aleve), to relieve fever, headache, and muscle aches. Read and follow all instructions on the label. No one younger than 18 should take aspirin. It has been linked to Nile syndrome, a serious illness. Take any prescribed medicine exactly as directed. Do not smoke. Smoking can make the flu worse. If you need help quitting, talk to your doctor about stop-smoking programs and medicines. These can increase your chances of quitting for good. If the skin around your nose and lips becomes sore, put some petroleum jelly (such as Vaseline) on the area. To ease coughing: Suck on cough drops or plain, hard candy. Try an zzrj-qxw-szkjzyf cough or cold medicine. Read and follow all instructions on the label. Raise your head at night with an extra pillow. This may help you rest if coughing keeps you awake. To avoid spreading the flu Wash your hands regularly, and keep your hands away from your face. Stay home from school, work, and other public places until you are feeling better and your fever has been gone for at least 24 hours. The fever needs to have gone away on its own without the help of medicine. Ask people living with you to talk to their doctors about preventing the flu. They may get antiviral medicine to keep from getting the flu from you. To prevent the flu in the future, get the flu vaccine every fall. Encourage people living with you to get the vaccine. Cover your mouth when you cough or sneeze. If you can, cough or sneeze into the bend of your elbow, not your hands. When should you call for help? Call 911 anytime you think you may need emergency care. For example, call if: You have severe trouble breathing. You have a seizure. Call your doctor or nurse advice line now or seek immediate medical care if: You have trouble breathing. You have a fever with a stiff neck or a severe headache. You have pain or pressure in your chest or belly. You have a fever or cough that returns after getting better. You feel very sleepy, dizzy, or confused. You are not urinating. You have severe muscle pain. You have severe weakness, or you are unsteady. You have medical conditions that are getting worse Watch closely for changes in your health, and be sure to contact your doctor or nurse advice line if: You do not get better as expected. You are having a problem with your medicine. Coding Level of Care Code Est Pt Level 3 (77082) Diagnoses Influenza A J10.1
[2024-05-24 09:17] VITALS: BP 110/70; PULSE 73; RESP 14; TEMP 36.8; O2SAT 98; BMI 35.2
== END 2024-05-24 09:47 | disposition home or self-care (01) ==
LOC: HO.HMCWIW 08:57
PROVIDERS: PCP Internal Medicine; Visit Provider Nurse Practitioner Family
DX: J10.1 Influenza due to other identified influenza virus with other respiratory manifestations (principal)

== ENCOUNTER → 2024-05-24 08:57 | Outpatient (BNVA) | payer OTHER, SELFPAY | PROVIDERS: PCP Internal Medicine; Visit Provider Nurse Practitioner Family | DX: J10.1 Influenza due to other identified influenza virus with other respiratory manifestations (principal) | CPT/HCPCS: 99212 ==

== ENCOUNTER 2024-05-30 11:30 | Outpatient (AMB) | payer OTHER, SELFPAY ==
[2024-05-30 11:48] VITALS: BP 120/74; PULSE 62; TEMP 37.2; O2SAT 98
--- NOTE | 2024-05-30 11:48 | AM.OFFWIN_ITS ---
Intake Vital Signs 05/30/24 11:48 Weight 204 lb BP 120/74 Blood Pressure Location Rt brachial Position Sitting Pulse 62 Pulse Source Pulse Oximeter Temp 99 F Temp Source Oral Pulse Oximetry (%) 98 Oxygen Delivery Method Room Air Intake Visit Reasons: EP Flu+, cough Patient Tobacco Use Status: Never used Tobacco Allergies No Known Allergies [No Known Allergies*] Allergy (Verified 05/30/24 11:49) Do you need a note to return to daycare/school/sports/work: No HPI HPI Comments History of Present Illness Details 53 y/o female patient who presents to [facility] walk in clinic with c/o Persistent cough for a week now. Patient and Sister both tested positive for Influenza A 05/24/24. They both completed Tamiflu, but reports no improvement. [facility] Medical History Anemia Acute sore throat Nasal congestion Viral illness Encounter for screening colonoscopy Colon cancer screening Dysphagia Mental and behavioral problem Obesity (BMI 30-39.9) Mood disorder Surgical History Hx of colonoscopy History of esophagogastroduodenoscopy (EGD) Surgical history unknown Family History Father Diabetes Skin cancer Hypertension Myocardial infarct, Onset Age: 73 Mother Breast cancer Skin cancer Graves disease Paternal Grandfather Diabetes Sister Skin cancer Social History Housing: Apartment Patient Tobacco Use Status: Never used Tobacco Tobacco use type: Cigarette e-Cigarette/Vaping Use: Never Used Second Hand Smoke Exposure: No service: No Current occupational status: disabled Cognitive needs: Yes Hearing needs: Yes Vision needs: Yes Review of Systems Const All systems reviewed & are unremarkable except as noted in HPI and below Physical Exam Vital Signs: Last Vital Signs Temp 99 F 05/30/24 11:48 Pulse 62 05/30/24 11:48 BP 120/74 05/30/24 11:48 Pulse Ox 98 05/30/24 11:48 Oxygen Delivery Method Room Air 05/30/24 11:48 Const General: cooperative and no acute distress Nutritional Appearance: obese Orientation/consciousness: patient oriented x3 Resp Effort & Inspection: normal respiratory effort, able to speak in complete sentences and Actively coughing Auscultation: clear to auscultation bilaterally, no crackles, no rales, no rhonchi and no wheezes Cardio Heart sounds: S1 normal heart sound present and S2 normal heart sound present Neuro General: patient oriented x3 Assessment & Plan Assessment & Plan (1) Influenza A: Code(s): J10.1 - Influenza due to other identified influenza virus with other respiratory manifestations Plan: OTC cough remedies Warm fluids with honey Rest Acetaminophen for fever and pain relief (2) Cough: Code(s): R05.9 - Cough, unspecified Qualifiers: Cough type: subacute Qualified Code(s): R05.2 - Subacute cough Plan: OTC cough remedies Warm fluids with honey Rest Acetaminophen for fever and pain relief Medications: New dextromethorphan polistirex ER (Delsym 12 hour) 10 mL PO Q12H 89 mL 0RF cough J10.1 - Influenza due to other identified influenza virus with other respiratory manifestations, R05.2 - Subacute cough benzonatate 200 mg (2 x 100 mg) PO TID 90 caps 0RF R05.2 - Subacute cough Coding Level of Care Code Est Pt Level 4 (78565) Diagnoses Influenza A J10.1 Subacute cough R05.2 Cough type: subacute Time Spent (min) 20
== END 2024-05-30 12:26 | disposition home or self-care (01) ==
PROVIDERS: PCP Internal Medicine; Visit Provider Nurse Practitioner Family
DX: J10.1 Influenza due to other identified influenza virus with other respiratory manifestations (principal); R05.2 Subacute cough

== ENCOUNTER → 2024-05-30 11:30 | Outpatient (BNVA) | payer OTHER, SELFPAY | PROVIDERS: PCP Internal Medicine | DX: J10.1 Influenza due to other identified influenza virus with other respiratory manifestations (principal); R05.2 Subacute cough | CPT/HCPCS: 99212 ==

== ENCOUNTER 2024-06-27 13:49 | Outpatient (REF) | payer OTHER, SELFPAY ==
--- OUTSIDE RECORDS SUMMARY | 2024-06-27 16:10 | XMS_ITS | Encounter Summary ---
Author Organization [employer] [facility] Address [address] [place] [address] Care Team Providers Care Mangle Tender Name Role Phone Unavailable Primary Care Provider Unavailabl e Reason for Visit * Reason Onset Date Comments referral mail out 09/17/2022 Encounter Details Date Type Department Care Team ([facility] Contact Info) Description 09/17/2022 Telephone [facility] [address] [place] [address] Winnie Lewis BDS [address] [place] [address] referral mail out Social History Tobacco Use Types Packs/Day Years Used Date Smoking Tobacco: Never Smokeless Tobacco: Never Comments Unknown Sex and Gender Information Value Date Recorded Sex Assigned at Female 02/10/2022 10:18 AM EDT Legal Sex Female 10:18 AM EDT Gender Identity Female 02/10/2022 10:18 AM EDT Sexual Orientation Straight 02/10/2022 10 :18 AM EDT documented as of this encounter Miscellaneous Notes * Telephone Encounter - Genevieve Gil - 09/17/2022 9:06 AM EDT Patient states that referral was going to be mailed out to her about 2 weeks ago but still has not received it. I confirmed the address with the patient. She is looking to confirm that it has been mailed out. DR documented in this encounter Plan of Treatment Upcoming Encounters Date Type Department Care Team ([facility] Contact Info) Description 11/02/2024 9:00 AM EDT Office Visit [facility] [address] [place] [phone] Polina Rocha [address] [place] [phone] documented as of this encounter Visit Diagnoses Not on filedocumented in this encounter
--- OUTSIDE RECORDS SUMMARY | 2024-06-27 16:10 | XMS_ITS | Encounter Summary ---
Author Organization [facility] Address [address] [facility] 7 [place] [address] Care Team Providers Care Director Human Services Name Role Phone Unavailable Primary Care Provider Unavailabl e Encounter Details Date Type Department Care Team (Latest Contact Info) Description 10/19/2018 Abstract [facility] CONVERSIONS Dental, Provider, DDS Social History Tobacco Use Types Packs/Day Years Used Date Smoking Tobacco: Never Assessed Comments Unknown Sex and Gender Information Value Date Recorded Sex Assigned at Female 02/10/2022 10:18 AM EDT Legal Sex Female 10:18 AM EDT Gender Identity Female 02/10/2022 10:18 AM EDT Sexual Orientation Straight 02/10/2022 10 :18 AM EDT documented as of this encounter Plan of Treatment Upcoming Encounters Date Type Department Care Team (Late st Contact Info) Description 11/02/2024 9:00 AM EDT Office Visit [facility] DENTAL [address] [place], [place] [phone] Polina Rocha [address] [place], [place] [phone] documented as of this encounter Visit Diagnoses Not on filedocumented in this encounter
--- OUTSIDE RECORDS SUMMARY | 2024-06-27 16:10 | XMS_ITS | Patient Health Record ---
Author Organization [facility] Address [address] [place] [address] Care Team Providers Care Missile Tracking Technician Name Role Phone Mal Potter Primary Care Provider Lacey Monte Unavailable [phone] Allergies No Known Allergies Reason For Referral No Information Medications Medication SIG (Take, Route, Frequency, Duration) Notes Start Date End Date Status Vitamin D3 250 MCG (44646 UT) as directed Orally Active Triamcinolone Acetonide 0.025 % 1 application Externally Once a day Active Fiber Therapy 500 MG 2 tablets with a fu ll glass of water as needed Orally Six times a day Active Ketoconazole 2 % 1 application Three Dimensional Art Instructor ally Once a day Active Sucralfate 1 GM 1 tablet on an empty stomach Orally Twice a day for 30 day(s) Active metroNIDAZOLE 0.75 % 1 application Exter silva Twice a day Active Omeprazole 20 MG 1 capsule 30 minutes before morning meal Orally Once a day for 30 day(s) Active Social History Tobacco Use: Social History Observation Description Date Details (start date - stop date) Never Smoker NA - NA Tobacco Use/Smoking Question Answer Notes Are you a: nonsmoker Additional Findings: Tobacco Non-User Current no n-smoker Alcohol Screen Question Answer Notes Did you have a drink containing alcohol in the p ast year? No Points 0 Interpretation Negative Tobacco use other than smoking: Question Answer Notes Are you an other tobacco user? No Plan Of Treatment No Information Insurance Providers Payer Name Payer Address Payer Phone Subscriber Number Group Number Insured Name Patient Relationship to Insured Coverage Start Date Coverage End Date [facility] [employer] Claims [address] [place] [phone] [id number] Moraima aCdena Self - patient is the insured Medical (General) History Medical History History ICD Code Anemia mood disorder Obesity Mental and behavioral problem Anxiety asthma Reflux ( GERD) Surgical History Surgery Date(Month/Year)
--- OUTSIDE RECORDS SUMMARY | 2024-06-27 16:10 | XMS_ITS | Encounter Summary ---
Author Organization [employer] Address [address] [facility] [address] [place] [address] Care Team Providers Care Needle Loom Setter Name Role Phone Unavailable Primary Care Provider Unavailabl e Reason for Visit * Reason Onset Date Comments referral 09/02/2022 Encounter Details Date Type Department Care Team (Late Contact Info) Description 09/02/2022 Telephone [facility] D[facility] [address] [place], [place] [phone] Winnie Lewis, BDS [address] [place], [place] [phone] referral Social History Tobacco Use Types Packs/Day Years [...] * Telephone Encounter - Genevieve Gil - 09/02/2022 9:11 AM EDT Patient states that she would like a referral to go to Oral Surgeon office for ext of #32. She alsostated that appt for ext #32 should have been requested for our office as well. I requested it. Benjamín did say she wanted to get a referral to see if she can get in elsewhere sooner. She would like it mailed to her. documented in this encounter Plan of Treatment Upcoming Encounters Date Type Department Care Team (Late st Contact Info) Description 11/02/2024 9:00 AM EDT Office Visit [facility] DENTAL [address] [place] [address] Polina Rohca [address] [place], [place] [phone] documented as of this encounter Visit Diagnoses Not on filedocumented in this encounter
--- OUTSIDE RECORDS SUMMARY | 2024-06-27 16:10 | XMS_ITS | Clinical Summary ---
Author Organization [employer] Address [address] [facility] [address] [place] [address] Care Team Providers Care Ink Printer Name Role Phone Unavailable Primary Care Provider Unavailabl e Allergies No known active allergies Medications FLUoxetine (PROzac) 20 MG/5ML solution 05/05/2022 Act rajan omeprazole (PriLOSEC) [address] capsule Take 2 capsules by mouth at bed time. Active sucralfate (Carafate) 1 g tablet 04/26/2022 Active Fiber 500 MG capsule Active risperiDONE (RisperDAL) 0.25 MG tablet Take 0.25 mg by mouth at bedtime. 04/10/2024 Active cloNIDine (Catapres) 0.1 MG tablet Take 0.1 mg by mouth if needed at bedtime. 04/10/2024 Active FeroSul 325 (65 Fe) MG tablet Take 1 tablet by mouth 2 times daily. 04/10/2024 Active ascorbic acid (Vitamin C) 500 MG tablet Take 1 tablet by mouth 2 times daily. 04/04/2024 Active Encounters Date Type Department Care Team Description 04/28/2024 3:00 PM EST Office Visit [facility] DENTAL [address] [place] [phone] Polina Rocha 04/27/2024 Travel from Last 3 Months Social History Tobacco Use Types Packs/Day Years Used Date Smoking Tobacco: Never Smokeless Tobacco: Never Tobacco Cessation:Counseling Given: Not Answered Comments Unknown Sex and Gender Information Value Date Recorded Sex Assigned at Female 02/10/2022 10:18 AM EDT Legal Sex Female 10:18 AM EDT Gender Identity Female 02/10/2022 10:18 AM EDT Sexual Orientation Straight 02/10/2022 10 :18 AM EDT Last Filed Vital Signs Vital Sign Reading Time Taken Comments Blood Pressure 128/78 04/28/2024 3:10 PM EST Pulse 65 04/28/2024 3:10 PM EST Temperature - - Respiratory Rate - - Oxygen Saturation - - Inhaled Oxygen Concentration - - Weight - - Height - - Body Mass Index - - Plan of Treatment Upcoming Encounters Date Type Department Care Team (Aldo st Contact Info) Description 11/02/2024 9:00 AM EDT Office Visit [facility] DENTAL [address] [place], [place] [phone] Polina Rocha [address] [place], [place] [phone] Health Maintenance Due Date Last Done Comments CT Colonography 1972 Colonoscopy 1972 Colorectal Cancer Screening 1972 Depression Screening 1972 FIT DNA/Cologuard 1972 FIT 1972 FOBT 1972 HIV Screening 1972 SDOH Screening 1972 Sigmoidoscopy 1972 Alcohol/Substance Use Screening 1984 Family Planning (PISQ) 11/19/1987 Hepatitis C Screening 1990 DTaP/Tdap/Td Vaccines (1 - Tdap) 11/19/1991 Hepatitis B Vaccines (1 of 3 - 19+ 3-dose series) 11/19/1991 Pap Smear 1993 Cervical Cancer Screening 2002 HPV/Cotest 2002 Mammogram 2012 Pneumococcal Vaccine: 50+ Years (1 of 1 - PCV) 2022 Zoster Vaccines (1 of 2) 2022 COVID-19 Vaccine (1 - season) 2023 Influenza Vaccine (#1) 2023 Dental X-Ray: Bitewings 10/07/2024 10/07/2023, 06/11 Dental Oral Exam 10/27/2024 04/28/2024, , 06/11/2022 Dental Prophylaxis 10/27/2024 04/28/2024, 0 10/07/2023, 02/04/2023, Additional history exists Tobacco Screening 04/28/2025 04/28/2024 Dental X-Ray: Full Mouth 07/01/2025 06/30/2022 RSV Patients and Patients Aged 60 years or older (1 - 1-dose 75+ series) 11/19/2047 HIB Vaccines Aged Out No longer eligi ble based on patient's age to complete this topic HPV Vaccines Aged Out No longer eligi ble based on patient's age to complete this topic Hepatitis A Vaccines Aged Out No long er eligible based on patient's age to complete this topic IPV Vaccines Aged Out No longer eligi ble based on patient's age to complete this topic Meningococcal Vaccine Aged Out No dixie sujatha eligible based on patient's age to complete this topic Pneumococcal Vaccine: Pediatrics (0 to 5 Years) and At-Risk Patients (6 to 49) Years) Aged Out No longer eligible based on patient's age to complete this topic RSV under 20 months Aged Out No longe r eligible based on patient's age to complete this topic Rotavirus Vaccines Aged Out No longer eligible based on patient's age to complete this topic Procedures Procedure Name Priority Date/Time Associated Diagnosis Comments PERIODIC ORAL EVALUATION - ESTABLISHED PATIENT Routine 04/28/2024 3:00 PM EST TOPICAL APPLICATION OF FLUORIDE - EXCLUDING VARNISH Routine 04/28/2024 3:00 PM EST PROPHYLAXIS - ADULT Routine 04/28/2024 3 :00 PM EST CASE PRESENTATION, DETAILED AND EXTENSIVE TREATMENT PLANNING Routine 04/28/2024 3:00 PM EST BITEWINGS - 4 RADIOGRAPHIC IMAGES Routine 10/07/2023 8:00 AM EDT PANORAMIC RADIOGRAPHIC IMAGE Routine 06/30/2022 3:00 PM EDT from Last 3 Months or Most Recently Relevant to Health Maintenance Insurance DENTAL [facility] - [facility]
--- OUTSIDE RECORDS SUMMARY | 2024-06-27 16:10 | XMS_ITS | Encounter Summary ---
Author Organization [employer] [facility] Address [address] [facility] [address] [place] [address] Care Team Providers Care Window/Distribution Clerk Name Role Phone Unavailable Primary Care Provider Unavailabl e Encounter Details Date Type Department Care Team (Latest Contact Info) Description 11/13/[address] [facility] CONVERSIONS Dental, Provider, DDS Social [...] Description 11/02/2024 9:00 AM EDT Office Visit [facility] DENTAL [address] [place], [place] [phone] Polina Rocha [address] [place], [place] [phone] documented as of this encounter Visit Diagnoses Not on filedocumented in this encounter
== END 2024-06-27 13:50 | disposition home or self-care (01) ==
LOC: HO.MAMMO 13:49
PROVIDERS: PCP Internal Medicine; Visit Provider Internal Medicine
DX: Z12.31 Encounter for screening mammogram for malignant neoplasm of breast (principal)
CPT/HCPCS: 77063; 77067

== ENCOUNTER → 2024-06-27 14:15 | Outpatient (BNV) | payer OTHER, SELFPAY | PROVIDERS: PCP Internal Medicine; Visit Provider Internal Medicine | DX: Z12.31 Encounter for screening mammogram for malignant neoplasm of breast (principal) | CPT/HCPCS: 77063; 77067 ==

== ENCOUNTER 2024-08-02 13:40 | Outpatient (REF) | payer OTHER, SELFPAY ==
[2024-08-02 15:02] LABS: MANUAL DIFF FLAG NO
[2024-08-02 15:17] LABS: Basophils Absolute Auto 0.1 X10*3/uL (0.0-0.2); Basophils Percent Auto 0.7 % (0-2); Eosinophils Absolute Auto 0.1 X10*3/uL (0.0-0.4); Eosinophils Percent Auto 0.8 % (0-4); Hematocrit 37.4 % (37.0-47.0); Hemoglobin 12.1 g/dl (12.0-16.0); Imm Gran Abs Auto 0.02 X10*3/uL (0.00-0.03); Imm Gran Pct Auto 0.3 % (0.0-0.4); Lymphocytes Absolute Auto 1.7 X10*3/uL (1.2-4.9); Lymphocytes Percent Auto 22.8 % (20-40); Mean Corpuscular HGB Conc 32.4 g/dl (31.0-35.0); Mean Corpuscular Volume 83.5 fL (80.0-98.0); Mean Platelet Volume 11.9 fL (9.4-12.3); Monocytes Absolute Auto 0.5 X10*3/uL (0.1-1.2); Monocytes Percent Auto 6.4 % (2-11); Neutrophils Absolute Auto 5.2 x10*3/uL (2.0-8.3); Platelet Count 255 X10*3/uL (160-400); Red Blood Count 4.48 X10*6/uL (4.20-5.50); Red Cell Distribution Width 14.3 % (11.0-16.0); White Blood Count 7.5 X10*3/uL (4.8-10.8)
[2024-08-02 16:33] LABS: C Reactive Protein < 0.10 mg/dL (< or = 0.50); Iron 114 mcg/dL (30-160); Percent Iron Saturation 37 % (15-50); Total Iron Binding Capacity 310 mcg/dL (228-428); Unsaturated Iron Binding 196 ug/dL
[2024-08-02 16:48] LABS: Ferritin 24 ng/mL (10-250)
[2024-08-02 17:02] LABS: Folate 13.9 ng/mL (> or = 4.0); Vitamin B12 813 pg/mL (200-900)
--- OUTSIDE RECORDS SUMMARY | 2024-08-02 17:42 | XMS_ITS | Encounter Summary ---
Author Organization [employer] Address [address] [facility] 7t [place] [address] Care Team Providers Care Square Shear Operator Name Role Phone Unavailable Primary Care Provider Unavailabl e Reason for Visit * Reason Onset Date Comments referral 09/02/2022 Encounter Details Date Type Department Care Team (Late Contact Info) Description 09/02/2022 Telephone C [facility] DENTAL [address] [place], [place] [phone] Winnie Lewis, BDS [address] [place], [place] [phone] referral Social History Tobacco Use Types Packs/Day [...] Description 11/02/2024 9:00 AM EDT Office Visit [facility] [address] [place] [address] [address]ina Rocha [address] [place] [address] [phone] documented as of this encounter Visit Diagnoses Not on filedocumented in this encounter
--- OUTSIDE RECORDS SUMMARY | 2024-08-02 17:42 | XMS_ITS | Clinical Summary ---
Author Organization [employer] Address [address] [facility] [address]t [place] [address] Care Team Providers Care Wafer Production Lead Worker Name Role Phone Unavailable Primary Care Provider [...] Description 11/02/2024 9:00 AM EDT Office Visit [facility] ADULT DENTAL [address] [place] [address] Polina Rocha [address] [place] [phone] Health Maintenance Due Date Last Done Comments [...] Relevant to Health Maintenance Insurance D[facility] DENTAL [facility]
--- OUTSIDE RECORDS SUMMARY | 2024-08-02 17:42 | XMS_ITS | Encounter Summary ---
Author Organization [employer] [facility] Address [address] [facility] 7 [place] [address] Care Team Providers Care Oceanologist Name Role Phone Unavailable Primary Care Provider Unavailabl e Encounter Details Date Type Department Care Team (Latest Contact Info) Description 10/19/2018 Abstract [facility] CONVERSIONS Dental, Provider, DDS Social [...] Description 11/02/2024 9:00 AM EDT Office Visit [facility] ADULT DENTAL [address] [place] [address] Polina Rocha [address] [place], [place] [phone] documented as of this encounter Visit Diagnoses Not on filedocumented in this encounter
--- OUTSIDE RECORDS SUMMARY | 2024-08-02 17:42 | XMS_ITS | Encounter Summary ---
Author Organization [employer] [facility] Address [address] [facility] 7 [place] [address] Care Team Providers Care Matcher Leather Parts Name Role Phone Unavailable Primary Care Provider Unavailabl e Encounter Details Date Type Department Care Team (Latest Contact Info) Description 11/13/2020 Abstract [facility] CONVERSIONS Dental, Provider, DDS Social History [...] Description 11/02/2024 9:00 AM EDT Office Visit [facility] ADULT DENTAL [address] [place] [address] Polina Rocha [address] [place], [place] [phone] documented as of this encounter Visit Diagnoses Not on filedocumented in this encounter
--- OUTSIDE RECORDS SUMMARY | 2024-08-02 17:42 | XMS_ITS | Encounter Summary ---
Author Organization [employer] [facility] Address [address] [facility] 7t [place] [address] Care Team Providers Care Mobility Scooter Repairer Name Role Phone Unavailable Primary Care Provider Unavailabl e Reason for Visit * Reason Onset Date Comments referral mail out 09/17/2022 Encounter Details Date Type Department Care Team (Late Contact Info) Description 09/17/2022 Telephone [facility] [address] [place], [place] [phone] Winnie Lewis BDS [address] [place], [place] [phone] referral mail out Social History Tobacco Use [...] 11/02/2024 9:00 AM EDT Office Visit [facility] ADULT DENTAL [address] [place], [place] [phone] Polina Rocha [address] [place] [phone] documented as of this encounter Visit Diagnoses Not on filedocumented in this encounter
[2024-08-03 21:59] LABS: Transglutaminase IgA <1.0 U/mL
== END 2024-08-02 13:41 | disposition home or self-care (01) ==
LOC: HO.LAB 13:40
PROVIDERS: PCP Internal Medicine; Visit Provider Nurse Practitioner Family
DX: K59.00 Constipation, unspecified (principal); D50.9 Iron deficiency anemia, unspecified
CPT/HCPCS: 36415; 82607; 82728; 82746; 83540; 85025; 86140; 86364; 99212

== ENCOUNTER 2024-08-02 13:40 | Outpatient (AMB) | payer OTHER, SELFPAY ==
--- NOTE | 2024-08-02 13:43 | MHC.OFFVIS ---
Vital Signs 08/02/24 13:44 Height 5 ft 4 in Weight 195 lb BMI 33.5 BP 97/56 L Blood Pressure Location Lt brachial Position Sitting Pulse 61 Pulse Oximetry (%) 99 Oxygen Delivery Method Room Air Intake Visit Reasons: follow constipation Intake Note: Patient complex follow up for constipation/Liliane haro was 09/30/2022. lAST EGD/Colonoscopy was 08/21/[address] Leach with 10 ys recall. Patient cc: early satiety on and off, constipation, patient stop Omeprazole due she start with Anemia and acid reflux on and off, she is not taking nothing for it. Shellfish Farming Supervisor Required: Yes Shellfish Farming Supervisor Name: [facility] [place] [facility] Accompanied by: Family/Other Allergies No Known Allergies [No Known Allergies*] Allergy (Verified 08/02/24 13:42) Medication List - Last Reconciled 08/02/24 by Ami Broussard CNP ascorbic acid (vitamin C) 500 mg PO BID 30 days clonidine HCl 0.1 mg PO BEDTIME cyanocobalamin (vitamin B-12) 1,000 mcg PO DAILY dextromethorphan polistirex ER (Delsym 12 hour) 10 mL PO Q12H ferrous sulfate (Feosol) 325 mg PO BID fluoxetine 40 mg PO DAILY [Gloves medium As directed large pull-up, wipes, gloves, panty liners] guaifenesin ER (Mucinex) 600 mg PO Q12H PRN 10 days hydroxyzine HCl 25 mg PO BEDTIME [Large pull up large pull-up, wipes, gloves, panty liners] lorazepam 0.5 mg PO DAILY PRN naproxen 500 mg PO Q12H PRN [Panty liners As directed large pull-up, wipes, gloves, panty liners] polyethylene glycol 3350 (Miralax) 17 grams PO DAILY 30 days risperidone 0.25 mg PO BEDTIME sennosides-docusate sodium 8.6-50 mg (Senna-S) 2 tab-caps (2 x 8.6-50 mg) PO BEDTIME 90 days triamcinolone acetonide 0.025% 1 appl topical BID [Wipes large pull-up, wipes, gloves, panty liners] HPI HPI follow constipation: Details: Patient is a 53-year-old female with PMH of developmental disability, obesity, ARMANI, diverticulosis and GERD. Last visit with OXANA Agosto 09/30/2022 for follow-up after EGD. Pt is here today for follow up. Patient is accompanied by her sister. They report acid reflux symptoms continued intermittently. Shares omeprazole was discontinued approx one year ago following anemia. She gets relief from TUMS. Sister shares Moraima eats fast and reports periods of nervous crisis where she will eat less, but also experience periods of overeating. She denies regurgitation or dysphasia Sister expresses concern for constipation. Reports Daniella has a BM every other day, will have to induce digital impaction. Has been without her stool softener pill a couple months . They did find this medication helpful. Endorses hemorrhoids, surgery deferred. consumes: limited water intake sufficient fruit and vegetable and beans Patient denies: fever/chills, unintentional wt loss, ab pain, or melena/hematochezia. Social hx: denies ETOH use denies recreational drug use non-smoker family hx -Mother, passed from breast CA that metastasized to the lungs -father, skin cancer denies personal hx of CA PFSH Medical History (Updated 08/02/24 @ 14:53 by Ami Broussard CNP) Constipation Anemia Acute sore throat Nasal congestion Viral illness Encounter for screening colonoscopy Colon cancer screening Dysphagia Mental and behavioral problem Obesity (BMI 30-39.9) Mood disorder Surgical History Hx of colonoscopy History of esophagogastroduodenoscopy (EGD) Surgical history unknown Family History Father Diabetes Skin cancer Hypertension Myocardial infarct, Onset Age: 73 Mother Breast cancer Skin cancer Graves disease Paternal Grandfather Diabetes Sister Skin cancer Social History Housing: Apartment Patient Tobacco Use Status: Never used Tobacco Tobacco use type: Cigarette e-Cigarette/Vaping Use: Never Used Second Hand Smoke Exposure: No service: No Current occupational status: disabled Cognitive needs: Yes Hearing needs: Yes Vision needs: Yes Review of Systems Const Reports as per HPI ENT Reports as per HPI Card Reports as per HPI Resp Reports as per HPI GI Reports as per HPI Reports as per HPI Physical Exam Vital Signs: Last Vital Signs Pulse 61 08/02/24 13:44 BP 97/56 L 08/02/24 13:44 Pulse Ox 99 08/02/24 13:44 Oxygen Delivery Method Room Air 08/02/24 13:44 BMI result Body Mass Index 33.5 Const General: healthy appearing, no acute distress and well developed Nutritional Appearance: well nourished Orientation/consciousness: patient oriented x3 HEENT Head: Yes normal to inspection, Yes normocephalic and Yes atraumatic Face and sinus: Yes normal facial exam Eyes General: appearance normal, both eyes and all related structures Neck Neck: Yes normal visual inspection Resp Effort & Inspection: normal respiratory effort, able to speak in complete sentences, no tracheal deviation and symmetric chest movement Auscultation: clear to auscultation bilaterally Cardio Jugular venous distension: no JVD Rate: regular rate Rhythm: regular rhythm Heart sounds: S1 normal heart sound present, S2 normal heart sound present, no gallops and no murmurs GI Inspection: Yes normal to inspection, No distended and Yes obesity Palpation (GI): Soft to palpation, not firm, nontender and No hepatosplenomegaly present Auscultation: Hypoactive bowel sounds present Neuro General: patient oriented x3 Gait exam (Neuro): Normal gait present Psych Appearance: grossly normal Mental Status: mental status grossly normal Speech and movement: Normal speech and movement present Affect: normal affect Attitude: cooperative Thought process: Other thought process findings present (Developmental disability) Thought content: other (As above) Insight: Limited insight present (Psych) (As above) Judgement: Limited judgement present (Psych) (As above) Results Reviewed Results Reviewed: Laboratory Tests 12/23/23 02/03/24 07:50 08:44 Iron 14 L TIBC 351 % Saturation 4 L Unsat Iron Binding 337 Ferritin 2 L 14 Total Bilirubin 0.5 AST 15 ALT 13 Alkaline Phosphatase 63 Total Protein 7.0 Albumin 4.0 FLEXIBLE TRANSORAL UPPER GASTROINTESTINAL ENDOSCOPY WITH BIOPSIES AND COLONOSCOPY TILL CECUM WITH BIOPSIES Date of Service: 08/21/22 Narrative: Pre-op diagnosis: Colon cancer screening, chronic constipation, GERD Post-op diagnosis: GERD, Gastritis, gastric polyp? Endoscopist:? Dorian Leach MD UPPER ENDOSCOPY Procedure: The patient was placed in the left lateral decubitis position and pre-procedure medications were administered and a bite block was placed. The endoscope was inserted into the mouth and advanced under direct vision to the third part of duodenum. A careful inspection was made as the upper endoscope was withdrawn including a retroflexed examination of the proximal stomach; Findings and interventions are described below. Findings: Larynx: Normal Esophagus: GE junction at 36 cms. No esophagitis or Shah's. Stomach: Moderate diffuse gastric erythema. Biopsies were obtained from the antrum and body of the stomach. A 4-5 mm benign appearing polyp in the gastric body - biopsied. Grade 2 flap valve on retroflexed examination of the cardia. Duodenum: Normal bulb and descending duodenum Intervention: Biopsies as noted above COLONOSCOPY PROCEDURE NOTE Procedure: The patient was placed in the left lateral decubitis position and pre-procedure medications were administered. After a digital rectal examination of the ano-rectum, the video colonoscope was inserted into the rectum and advanced through the colon to the cecum. The colonoscope was slowly withdrawn in a retrograde panoramic fashion and the colon mucosa was carefully examined including a retroflexed view of the rectum. Findings and interventions are described below. Procedure Difficulty: : Without difficulty Findings: Terminal Ileum: Not evaluated Cecum: Mld melanosis coli throughout the colon - random biospies were obained from the right colon Ascending Colon: Mld melanosis coli throughout the colon - random biospies were obained from the right colon Transverse Colon: Mld melanosis coli throughout the colon - random biospies were obained from the right colon Descending Colon: Mld melanosis coli throughout the colon - random biospies were obained from the right colon Sigmoid Colon: Mld melanosis coli throughout the colon - random biospies were obained from the right colon Rectum: Normal Ano-rectum: Moderate internal hemorrhoids and perianal skin tags Colon preparation: [Excellent] [Good] [Fair] [poor] Impression and Post Procedure Diagnosis: Endoscopy Findings: STOMACH: Moderate diffuse gastric erythema. Biopsies were obtained from the antrum and body of the stomach. A 4-5 mm benign appearing polyp in the gastric body - biopsied. Colonoscopy Findings: No polyps were detected Moderate diverticulosis seen in the []colon Moderate hemorrhoids on retroflexed exam. Plan: Await pathology results Patient has an appointment on 09/03/22 in the GI Clinic with OXANA Ramirez. Repeat Colonoscopy in 10 years. Pathology: Status: DEP SDCCollected: 08/21/22 Location: HO.SSSReceived: 08/21/22 Diagnosis A.? Gastric antrum, biopsy:? Gastric antral mucosa with mild reactive changes and minimal chronic inactive gastritis; negative for H pylori, intestinal metaplasia and dysplasia.? B.? Gastric body, biopsy:? Gastric body mucosa with minimal chronic inactive gastritis; negative for H pylori, intestinal metaplasia and dysplasia. C.? Gastric polyp, biopsy:? Fundic gland polyp with minimal chronic inactive inflammation; negative for H pylori, intestinal metaplasia and dysplasia. D.? Colon, right, biopsy:? Colonic mucosa with pigmented lamina propria macrophages consistent with melanosis coli, otherwise no specific change. Clinical History Pre-Op Dx:? Reflux disease, constipation, screening Post-Op Dx: GERD, gastritis, gastric polyp Assessment & Plan Assessment & Plan (1) Constipation: Code(s): K59.00 - Constipation, unspecified Category: Medical Qualifiers: Constipation type: unspecified constipation type Qualified Code(s): K59.00 - Constipation, unspecified Plan: History limited by developmental disability. Suspect symptoms are CIC and lifestyle induced. She is also taking ferrous sulfate. We will refill senna S tablets and add on MiraLax. Reinforced lifestyle modifications to promote regularity: -higher fiber diet -adequate hydration with water -150 minutes of moderate intensity exercise per week (2) Iron deficiency anemia: Code(s): D50.9 - Iron deficiency anemia, unspecified Category: Medical Qualifiers: Iron deficiency anemia type: unspecified iron deficiency Qualified Code(s): D50.9 - Iron deficiency anemia, unspecified Plan: Iron levels low last collection 12/2023 (see above). Normal colonoscopy 2022 recommendations for repeat in 10 years. We will obtain screening labs today. We will evaluate need for repeat screening at follow-up. Constipation prevention as above. Plan Follow-up in 8 weeks or sooner as needed Time: I spent a total of 60 minutes on the date of encounter which includes: Preparing to see the patient (reviewed previous documentation, test results and medical history) Performing a medically appropriate exam and/or evaluation Ordering medications, tests, and procedures Documenting clinical information in the health record Orders: Orders Ferritin 08/02/24 D64.9 - Anemia, unspecified C Reactive Protein 08/02/24 K59.00 - Constipation, unspecified Calprotectin, Fecal 08/02/24 K59.00 - Constipation, unspecified Complete Blood Count Auto Diff 08/02/24 K59.00 - Constipation, unspecified IRON PROFILE 08/02/24 K59.00 - Constipation, unspecified Vitamin B12 and Folate 08/02/24 K59.00 - Constipation, unspecified Transglutaminase IgA 08/02/24 K59.00 - Constipation, unspecified Medications: New polyethylene glycol 3350 (Miralax) Take 17G (one cap full) daily with 8oz of water 17 grams PO DAILY 238 grams 2RF constipation 30 days Refilled sennosides-docusate sodium 8.6-50 mg (Senna-S) 2 tab-caps (2 x 8.6-50 mg) PO BEDTIME 180 tabs 3RF 90 days K59.00 - Constipation, unspecified Discontinued benzonatate Discontinued Reason: No Longer Medically Relevant 200 mg (2 x 100 mg) PO TID 90 caps 0RF R05.2 - Subacute cough Coding Level of Care Code Established Pt Tele Est Pt Level 4 (20840) Patient Type Established Diagnoses Constipation, unspecified constipation type K59.00 Constipation type: unspecified constipation type Iron deficiency anemia, unspecified iron deficiency anemia type D50.9 Iron deficiency anemia type: unspecified iron deficiency
[2024-08-02 13:44] VITALS: BP 97/56; PULSE 61; O2SAT 99; BMI 33.5
--- OUTSIDE RECORDS SUMMARY | 2024-08-02 16:14 | XMS_ITS | Patient Health Record ---
Author Organization [facility] Address [address] [place] [address] Care Team Providers Care Electronic Intelligence Officer Name Role Phone Mal Potter Primary Care Provider Lacey Monte Unavailable [phone] Allergies No Known Allergies Reason For Referral No Information Medications Medication SIG (Take, Route, Frequency, Duration) Notes Start Date End Date Status Vitamin D3 250 MCG (76704 UT) as directed Orally Active Triamcinolone Acetonide 0.025 % 1 application Externally Once a day Active Fiber Therapy 500 MG 2 tablets with a fu ll glass of water as needed Orally Six times a day Active Ketoconazole 2 % 1 application Relay Mechanic ally Once a day Active Sucralfate 1 [...] Insured Coverage Start Date Coverage End Date [facility] [employer] Claims [address] OXANA Harry [phone] [id number] Moraima Cadena Self - patient is the insured Medical (General) History Medical History History ICD Code Anemia mood disorder Obesity Mental and behavioral problem Anxiety asthma Reflux ( GERD) Surgical History Surgery Date(Month/Year)
--- OUTSIDE RECORDS SUMMARY | 2024-08-02 16:14 | XMS_ITS | Encounter Summary ---
Author Organization [employer] Address [address] [facility] 7t [place] [address] Care Team Providers Care Child Welfare Specialist Name Role Phone Unavailable Primary Care Provider Unavailabl e Reason for Visit * Reason Onset Date Comments referral 09/02/2022 Encounter Details Date Type Department Care Team (Late Contact Info) Description 09/02/2022 Telephone C [facility] D[facility]AL [address] [place], [place] [phone] Winnie Lewis, BDS [address] [place], [place] [phone] referral Social History Tobacco Use Types Packs/Day [...] Description 11/02/2024 9:00 AM EDT Office Visit [facility] ADULT DENTAL [address] [place] [address] Polina Rocha [address] [place] [address] [phone] documented as of this encounter Visit Diagnoses Not on filedocumented in this encounter
--- OUTSIDE RECORDS SUMMARY | 2024-08-02 16:14 | XMS_ITS | Clinical Summary ---
Author Organization [employer] Address [address] [facility] 7t [place] [address] Care Team Providers Care Alodize Machine Helper Name Role Phone Unavailable Primary Care Provider [...] by mouth 2 times daily. 04/04/2024 Active Social History Tobacco Use Types Packs/Day Years [...] Description 11/02/2024 9:00 AM EDT Office Visit [facility] ADULT DENTAL [address] [place] [address] Polina Rocha [address] [place] [phone] Health Maintenance Due Date Last Done Comments [...] of 2) 2022 COVID-19 Vaccine (1 - 2023- season) 2023 Influenza Vaccine (#1) 2023 Dental [...] Procedure Name Priority Date/Time Associated Diagnosis Comments PROPHYLAXIS - ADULT Routine 04/28/2024 3 :00 PM EST PERIODIC ORAL EVALUATION - ESTABLISHED PATIENT Routine 04/28/2024 3:00 PM EST BITEWINGS - 4 RADIOGRAPHIC IMAGES Routine 10/07/2023 8:00 AM EDT PANORAMIC RADIOGRAPHIC IMAGE Routine 06/30/2022 3:00 PM EDT from Last 3 Months or Most Recently Relevant to Health Maintenance Insurance DENTAL [facility] DENTAL [facility]
--- OUTSIDE RECORDS SUMMARY | 2024-08-02 16:14 | XMS_ITS | Encounter Summary ---
Author Organization [employer] [facility] Address [address] [facility] [address] 7 [place] [address] Care Team Providers Care Asthma Educator Name Role Phone Unavailable Primary Care Provider Unavailabl e Encounter Details Date Type Department Care Team (Latest Contact Info) Description 10/19/2018 Abstract [facility] CONVERSIONS Dental, Provider, DDS Social History Tobacco [...] Description 11/02/2024 9:00 AM EDT Office Visit [facility] ADULT DENTAL [address] [place] [address] Polina Rocha [address] [place], [place] [phone] documented as of this encounter Visit Diagnoses Not on filedocumented in this encounter
--- OUTSIDE RECORDS SUMMARY | 2024-08-02 16:14 | XMS_ITS | Encounter Summary ---
Author Organization [employer] [facility] Address [address] [facility] [address]t [place] [address] Care Team Providers Care Community Development Manager Name Role Phone Unavailable Primary Care Provider Unavailabl e Reason for Visit * Reason Onset Date Comments referral mail out 09/17/2022 Encounter Details Date Type Department Care Team (Late Contact Info) Description 09/17/2022 Telephone [facility] [address] [place], [place] [phone] Winnie Lewis BDS [address] [place], [place] [phone] referral mail out Social History Tobacco Use [...] Description 11/02/2024 9:00 AM EDT Office Visit [facility] ADULT DENTAL [address] [place], [place] [phone] Polina Rocha [address] [place] [phone] documented as of this encounter Visit Diagnoses Not on filedocumented in this encounter
--- OUTSIDE RECORDS SUMMARY | 2024-08-02 16:14 | XMS_ITS | Encounter Summary ---
Author Organization [employer] [facility] Address [address] [facility] 7 [place] [address] Care Team Providers Care Ambulance Assistant Name Role Phone Unavailable Primary Care Provider Unavailabl e Encounter Details Date Type Department Care Team (Latest Contact Info) Description 11/13/2020 Abstract [facility] CONVERSIONS Dental, Provider, DDS Social History Tobacco [...] Description 11/02/2024 9:00 AM EDT Office Visit [facility] ADULT DENTAL [address] [place] [address] Polina Rocha [address] [place], [place] [phone] documented as of this encounter Visit Diagnoses Not on filedocumented in this encounter
== END 2024-08-02 14:44 | disposition home or self-care (01) ==
LOC: HO.HGI 13:41
PROVIDERS: PCP Internal Medicine; Visit Provider Nurse Practitioner Family
DX: K59.00 Constipation, unspecified (principal); D50.9 Iron deficiency anemia, unspecified
CPT/HCPCS: 99215

== ENCOUNTER 2024-08-17 08:39 | Outpatient (AMB) | payer OTHER, SELFPAY ==
[2024-08-17 08:50] VITALS: BP 124/76; PULSE 67; O2SAT 97; BMI 34.3
--- NOTE | 2024-08-17 08:50 | A.OFFPC_ITS ---
Vital Signs 08/17/24 08:50 Height 5 ft 4 in Weight 200 lb BMI 34.3 BP 124/76 Blood Pressure Location Lt brachial Position Sitting Pulse 67 Pulse Source Pulse Oximeter Pulse Oximetry (%) 97 Oxygen Delivery Method Room Air Intake Visit Reasons: anemia Allergies No Known Allergies [No Known Allergies*] Allergy (Verified 08/17/24 08:50) Medication List - Last Reconciled 08/17/24 by Mal Potter MD ascorbic acid (vitamin C) 500 mg PO BID 30 days clonidine HCl 0.1 mg PO BEDTIME cyanocobalamin (vitamin B-12) 1,000 mcg PO DAILY dextromethorphan polistirex ER (Delsym 12 hour) 10 mL PO Q12H ferrous sulfate (Feosol) 325 mg PO BID fluoxetine 40 mg PO DAILY [Gloves medium As directed large pull-up, wipes, gloves, panty liners] guaifenesin ER (Mucinex) 600 mg PO Q12H PRN 10 days hydroxyzine HCl 25 mg PO BEDTIME [Large pull up large pull-up, wipes, gloves, panty liners] lorazepam 0.5 mg PO BID PRN naproxen 500 mg PO Q12H PRN [Panty liners As directed large pull-up, wipes, gloves, panty liners] polyethylene glycol 3350 (Miralax) 17 grams PO DAILY 30 days risperidone 0.25 mg PO BEDTIME sennosides (Natural Senna Laxative) 17.2 mg PO BEDTIME sennosides-docusate sodium 8.6-50 mg (Senna-S) 2 tab-caps (2 x 8.6-50 mg) PO BEDTIME 90 days triamcinolone acetonide 0.025% 1 appl topical BID [Wipes large pull-up, wipes, gloves, panty liners] Tobacco use date assessed: 08/17/24 Dental Screening Dental Screen Date: 08/17/24 Did you have a dental visit in the last 12 months?: Yes Did you have a dental problem in the last 6 months where you did not have access to dental care?: No Was dental information given to patient?: Patient has dentist [facility] Medical History (Updated 08/17/24 @ 09:17 by Mal Potter MD) Constipation Anemia Acute sore throat Nasal congestion Viral illness Encounter for screening colonoscopy Colon cancer screening Dysphagia Mental and behavioral problem Obesity (BMI 30-39.9) Mood disorder Surgical History Hx of colonoscopy History of esophagogastroduodenoscopy (EGD) Surgical history unknown Family History Father Diabetes Skin cancer Hypertension Myocardial infarct, Onset Age: 73 Mother Breast cancer Skin cancer Graves disease Paternal Grandfather Diabetes Sister Skin cancer Social History Housing: Apartment Patient Tobacco Use Status: Never used Tobacco Tobacco use type: Cigarette e-Cigarette/Vaping Use: Never Used Second Hand Smoke Exposure: No service: No Current occupational status: disabled Cognitive needs: Yes Hearing needs: Yes Vision needs: Yes Questionnaire PHQ-9 Over the last 2 weeks, how often have you been bothered by any of the following problems? 1. Little interest or pleasure in doing things: several days 2. Feeling down, depressed, or hopeless: nearly every day 3. Trouble falling or staying asleep, or sleeping too much: nearly every day 4. Feeling tired or having little energy: several days 5. Poor appetite or overeating: several days 6. Feeling bad about yourself - or that you are a failure or have let yourself or your family down: several days 7. Trouble concentrating on things, such as reading the newspaper or watching television: several days 8. Moving or speaking so slowly that other people could have noticed. Or the opposite - being so fidgety or restless that you have been moving around a lot more than usual: more than half the days 9. Thoughts that you would be better off or of hurting yourself in some way: not at all Total score: 13 Depression Screening Interpretation: Positive Depression Screening Done: Yes 07532 - PHQ-9 Billing: Yes Source: Developed by Drs. Bryan Wheat, Rissa Da Silva, Macario Haley and colleagues, with an educational romeo from [employer]. Thrive Questionnaire Date Thrive assessed: 08/17/24 I am a: Patient What is your living situation today?: I have a steady place to live Within the past 12 months, did the food you bought not last and you didn't have the money to get more?: I choose not to answer this question Within the past 12 months, did you worry whether your food would run out before you got money to buy more?: I choose not to answer this question Do you have trouble paying for medicines?: No Do you have trouble getting transportation to medical appointments?: No Do you have trouble paying your heating and electricity bill?: No Do you have trouble taking care of your child, family member or friend?: No Do you have trouble with day-to-day activities such as bathing, preparing meals, shopping, managing finances, etc.?: Yes Are you currently unemployed and looking for a job?: Yes Are you interested in more education?: No Please select the resources that you would like help with: Care for elder or disabled and None Currently or been in a relationship where the following occur: No concerns reported THRIVE Score: 0 AUDIT C Alcohol Use Questionnaire (AUDIT-C) 1. How often do you have a drink containing alcohol?: Never Total Score: 0 ZE-7 AMB Questionnaire ZE-7 Date ZE - 7 assessed: 08/17/24 Feeling nervous, anxious, or on edge: 2 = More than half the days Not being able to stop or control worryin = Several days Worrying too much about different things: 3 = Nearly every day Trouble relaxin = Nearly every day Being so restless that it is hard to sit still: 1 = Several days Becoming easily annoyed or irritable: 1 = Several days Feeling afraid as if something awful might happen: 1 = Several days Total ZE-7 score (0-4 normal; 5-9 mild; 10-14 moderate; 15-21 severe): 12 Source: Developed by Drs. Bryan Wheat, Rissa Da Silva, Macario Haley and colleagues, with an educational romeo from [employer]. ZE-7 Assessment Billing ZE-7 Assessment Tool: ZE-7 Assessment 86129 Physical exam (Primary Care) Vital Signs: Last Vital Signs Pulse 67 08/17/24 08:50 BP 124/76 08/17/24 08:50 Pulse Ox 97 08/17/24 08:50 Oxygen Delivery Method Room Air 08/17/24 08:50 BMI result Body Mass Index 34.3 Tobacco/Smoking Status: Tobacco use Status Tobacco use date assessed 08/17/24 08/17/24 08:54 Patient Tobacco Use Status Never used Tobacco 08/17/24 08:54 Tobacco use type Cigarette 08/17/24 08:54 e-Cigarette/Vaping Use Never Used 08/17/24 08:54 PHQ-9: PHQ-9 Score PHQ-9: Total score 13 08/17/24 09:18 Depression Screening Interpretation: Positive Thrive Assessment: Date of Thrive Assessment Date Thrive assessed 08/17/24 08/17/24 08:54 Currently or been in a relationship where the following occur: No concerns reported Const General: alert; No acute distress Eyes Conjunctivae: conjunctivae normal Resp Auscultation: clear to auscultation bilaterally Cardio Rate: regular rate Rhythm: regular rhythm GI Inspection: Yes normal to inspection Extrem General: Yes normal to inspection and No edema Coding Level of Care Code Est Pt Level 4 (91738) Complex EM visit Add On G2211 Diagnoses Constipation, unspecified constipation type K59.00 Constipation type: unspecified constipation type Perimenopausal N95.1 Obesity (BMI 30-39.9) E66.9 GERD (gastroesophageal reflux disease) K21.9 Diverticulosis of colon K57.30 Additional Codes ZE-7 Assessment Billing - ZE-7 Assessment Tool: ZE-7 Assessment 91777 ([id number]) PHQ-9 - 93549 - PHQ-9 Billing: Yes ([id number]) Assessment & Plan Assessment & Plan (1) Constipation: Code(s): K59.00 - Constipation, unspecified Category: Medical Qualifiers: Constipation type: unspecified constipation type Qualified Code(s): K59.00 - Constipation, unspecified Plan: Three rules for constipation 1. Diet need to have a high fiber diet less of meat 2. Increase oral fluids 3. Exercise has been placed on senna S and MiraLax (2) Perimenopausal: Code(s): N95.1 - Menopausal and female climacteric states Category: Medical Plan: Review of the notes has seen Gynecology and had recommendations regarding to medications like paroxetine/citalopram/Effexor/gabapentin (3) Obesity (BMI 30-39.9): Code(s): E66.9 - Obesity, unspecified Category: Medical Plan: Diet and exercise (4) GERD (gastroesophageal reflux disease): Comment: cont ppi-avoid culprits- Code(s): K21.9 - Gastro-esophageal reflux disease without esophagitis Category: Medical Plan: Avoid the foods that causes that usually spicy foods, tomato products, juices, coffee, soda and foods that your sensitive to. After eating do not lie down, allow 3-4 hours before in lie down. And keep the head of bed above 30 degrees to avoid the acid from going up. (5) Diverticulosis of colon: Code(s): K57.30 - Diverticulosis of large intestine without perforation or abscess without bleeding Category: Medical Plan: Avoid constipation with Three rules for constipation 1. Diet need to have a high fiber diet less of meat 2. Increase oral fluids 3. Exercise Plan History of Present Illness The patient is a 53-year-old female presenting with mental and behavioral concerns. She has a complex medical history, including GERD, constipation, cholelithiasis, and gastritis. Specific gastrointestinal investigations revealed notable findings, such as diverticulosis and hemorrhoids. Senna S and MiraLAX have been part of her laxative regimen. She recently faced a psychiatric crisis requiring hospital care, prompted by negative experiences at a day program and subsequent disturbing dreams. Past treatment of influenza A and early spondylosis has influenced her medical trajectory, alongside perimenopausal symptoms involving increased night sweating. These conditions have led to frequent reviews by various specialists, integrating gynecologic and psychiatric evaluation, with specific attention to potential medication adjustments. Previous blood works affirmed stable iron levels and a normal count, aligning with the decision process regarding ongoing treatment options for her mental health. Health Maintenance - Mammogram up to date as of June 2024 - Colonoscopy completed in August 2022 - Discussed avoidance of constipation through dietary modifications and medication - Discussed weight management due to obesity Social History - Family status: marital and family dynamics under strain due to patient care - Housing: potential relocation to [place] for supportive family care - Emotions: distressed by negative experiences in a previous day program - Activity level: enjoys outdoor activities; restricted by fear of heights Review of Systems - Gastrointestinal: Reports constipation - Musculoskeletal: Reports low back pain - Neurological: Denies seizures or syncope - Psychiatric: Reports increased nervousness and night sweats; mentioned dreams with distressing themes - General: Denies fever currently Physical Exam Results - Labs: Blood count normal, Iron levels normal - Tests: X-ray showing early spondylosis, more significant at L5-S1 - Procedures: Colonoscopy showing moderate diverticulosis, Hemorrhoids; EGD revealing mild, moderate diffuse gastric erythema and chronic active gastritis Plan A comprehensive management plan addressing the patient's mental and behavioral issues, gastrointestinal complications, and general health maintenance is instituted. Continued administration of Senna S and MiraLAX is planned to manage constipation and hemorrhoidal complications. Emphasis is on weight management strategies linked to her obesity, vital for maintaining her GERD under control. The patient's perimenopausal night sweats are addressed via gynecological guidance, while her psychiatric regimen is reconsidered, highlighting potential alternatives to fluoxetine, under psychiatric supervision. Exploration of relocation and reshaping of the patient's living situation or program to reduce stress and enhance recovery remains paramount. Patient was informed and verbally consented to the use of an ambient scribe for clinic note documentation during this visit. Discussion Notes During our detailed discussion, I reviewed the patient's complex medical history and articulated the multifaceted recommendations essential for her continued care. Emphasizing the critical role of effective gastrointestinal management with Senna S and MiraLAX can mitigate ongoing constipation and hemorrhoidal issues. I explained weight management's significance given her obesity's impact on GERD. Navigating perimenopausal symptoms through synchronized gynecologic consultation is highlighted. The patient's mental health necessitates judicious medication adjustment decisions, given the potential efficacy of paroxetine, citalopram, venlafaxine, or gabapentin in addressing her symptoms, ensuring fluoxetine cessation best practices to prevent adverse outcomes. I clarified proposed lifestyle changes and carefully deliberated her potential relocation impact, measuring implications on mental wellbeing. Continued engagement with pertinent specialists is recommended to deliver all-encompassing coordinated care tailored to her evolving needs. Patient Instructions - Continue using Senna S and MiraLAX as instructed - Stay consistent with dietary and lifestyle changes to improve gastroesophageal reflux and manage weight - Stay engaged with mental health professionals to review current psychiatric medications - Notify us if considering significant lifestyle changes, such as relocation - Attend any scheduled follow-up appointments with specialists to address complex medical needs - Report any new or worsening symptoms promptly
--- OUTSIDE RECORDS SUMMARY | 2024-08-17 08:57 | XMS_ITS | Patient Health Record ---
[facility] Address [address] [place] [address] Care Team Providers Care Review Specialist Name Role Phone Mal Potter Primary Care Provider Lacey Monte Unavailable [phone] Allergies No Known Allergies Reason For Referral No Information Medications Medication SIG (Take, Route, Frequency, Duration) Notes Start Date End Date Status Vitamin D3 250 MCG (42160 UT) as directed Orally Active Triamcinolone Acetonide 0.025 % 1 application Externally Once a day Active Fiber Therapy 500 MG 2 tablets with a fu ll glass of water as needed Orally Six times a day Active Ketoconazole 2 % 1 application Coverer ally Once a day Active Sucralfate 1 [...] Insured Coverage Start Date Coverage End Date [facility] SCO Claims [address] [place] [id number] [phone] [id number] Moraima Cadena Self - patient is the insured Medical (General) History Medical History History ICD Code Anemia mood disorder Obesity Mental and behavioral problem Anxiety asthma Reflux ( GERD) Surgical History Surgery Date(Month/Year)
== END 2024-08-17 09:45 | disposition home or self-care (01) ==
LOC: HO.HMCH 08:40
PROVIDERS: PCP Internal Medicine; Visit Provider Internal Medicine
DX: K59.00 Constipation, unspecified (principal); N95.1 Menopausal and female climacteric states; E66.9 Obesity, unspecified; Z68.34 Body mass index [BMI] 34.0-34.9, adult; K21.9 Gastro-esophageal reflux disease without esophagitis; K57.30 Diverticulosis of large intestine without perforation or abscess without bleeding

== ENCOUNTER → 2024-08-17 08:39 | Outpatient (BNVA) | payer OTHER, SELFPAY | PROVIDERS: PCP Internal Medicine; Visit Provider Internal Medicine | DX: K59.00 Constipation, unspecified (principal); N95.1 Menopausal and female climacteric states; E66.9 Obesity, unspecified; Z68.34 Body mass index [BMI] 34.0-34.9, adult; K21.9 Gastro-esophageal reflux disease without esophagitis; K57.30 Diverticulosis of large intestine without perforation or abscess without bleeding | CPT/HCPCS: 96127; 99212 ==

== ENCOUNTER 2024-11-23 15:12 | Outpatient (REF) | payer OTHER, SELFPAY ==
--- OUTSIDE RECORDS SUMMARY | 2024-11-23 15:15 | XMS_ITS | Patient Health Record ---
[facility] Address [address] [place] [address] Care Team Providers Care Manufacturing Cost Estimator Name Role Phone Mal Potter Primary Care Provider Lacey Monte Unavailable [phone] Allergies No Known Allergies Reason For Referral No Information Medications Medication SIG (Take, Route, Frequency, Duration) Notes Start Date End Date Status Vitamin D3 250 MCG (43003 UT) as directed Orally Active Triamcinolone Acetonide 0.025 % 1 application Externally Once a day Active Fiber Therapy 500 MG 2 tablets with a fu ll glass of water as needed Orally Six times a day Active Ketoconazole 2 % 1 application Audience Coordinator ally Once a day Active Sucralfate 1 GM 1 tablet on an empty stomach Orally Twice a day; Duration: 30 day(s) Active metroNIDAZOLE 0.75 % 1 application Exter silva Twice a day Active Omeprazole 20 MG 1 capsule 30 minutes before morning meal Orally Once a day; Duration: 30 day(s) Active Social History Tobacco Use: [...] Insured Coverage Start Date Coverage End Date [employer] Claims [address] [place] [id number] [phone] [id number] Moraima Cadena Self - patient is the insured Medical (General) History Medical History History ICD Code Anemia mood disorder Obesity Mental and behavioral problem Anxiety asthma Reflux ( GERD) Surgical History Surgery Date(Month/Year)
--- OUTSIDE RECORDS SUMMARY | 2024-11-23 15:15 | XMS_ITS | Encounter Summary ---
Author Organization [facility] Address [address] [place] [address] [address] [place] [address] Care Team Providers Care Director Of User Experience Name Role Phone Unavailable Primary Care Provider Unavailabl e Reason for Visit * Reason Onset Date Comments referral mail out 09/17/2022 Encounter Details Date Type Department Care Team ([facility] Contact Info) Description 09/17/2022 Telephone [facility] [address], [place] [phone] Winnie Lewis BDMoshe [address] [place], [place] [phone] referral mail out Social History Tobacco Use [...] confirm that it has been mailed out. documented in this encounter Plan of Treatment Not on file documented as of this encounter Visit Diagnoses Not on filedocumented in this encounter
[2024-12-02 03:08] LABS: Calprotectin, Fecal 46 mcg/g
== END 2024-11-23 15:13 | disposition home or self-care (01) ==
LOC: HO.WFDLDS 15:12
PROVIDERS: Visit Provider Nurse Practitioner Family
DX: K59.00 Constipation, unspecified (principal)
CPT/HCPCS: 83993

== ENCOUNTER 2024-11-29 09:17 | Outpatient (AMB) | payer OTHER, SELFPAY ==
--- NOTE | 2024-11-29 09:31 | MHC.OFFVIS ---
Vital Signs 11/29/24 09:40 Height 5 ft 4 in Weight 191 lb BMI 32.8 BP 115/68 Blood Pressure Location Lt brachial Position Sitting Pulse Oximetry (%) 96 Oxygen Delivery Method Room Air Intake Visit Reasons: constipation Intake Note: Patient follow up for GERD/Constipation and lab results. No fecal results. Patient cc: constipation, poor appetite, and denies any other GI issues. Statistical Technician Required: Yes Statistical Technician Name: [facility] [place] Interpeter/Latha Accompanied by: Family/Other Allergies No Known Allergies (No Known Allergies*) Allergy (Verified 11/29/24 09:30) Medication List - Last Reconciled 11/29/24 by Ami Broussard CNP ascorbic acid (vitamin C) 500 mg PO BID 30 days clonidine HCl 0.1 mg PO BEDTIME cyanocobalamin (vitamin B-12) 1,000 mcg PO DAILY dextromethorphan polistirex ER (Delsym 12 hour) 10 mL PO Q12H ferrous sulfate (Feosol) 325 mg PO BID fluoxetine 40 mg PO DAILY [Gloves medium As directed large pull-up, wipes, gloves, panty liners] guaifenesin ER (Mucinex) 600 mg PO Q12H PRN 10 days hydroxyzine HCl 25 mg PO BEDTIME [Large pull up large pull-up, wipes, gloves, panty liners] lorazepam 0.5 mg PO BID PRN naproxen 500 mg PO Q12H PRN [Panty liners As directed large pull-up, wipes, gloves, panty liners] polyethylene glycol 3350 (Miralax) 17 grams PO DAILY PRN risperidone 0.25 mg PO BEDTIME sennosides-docusate sodium 8.6-50 mg (Senna-S) 2 tab-caps (2 x 8.6-50 mg) PO BEDTIME 90 days trazodone 50 mg PO BEDTIME PRN triamcinolone acetonide 0.025% 1 appl topical BID [Wipes large pull-up, wipes, gloves, panty liners] HPI HPI constipation: Details: Patient is a 53-year-old female with PMH of developmental disability, obesity, ARMANI, diverticulosis and GERD. Anneliesse present with her sister for follow up on constipation. Chronic Constipation: The patient experiences longstanding constipation managed with nightly laxative tablets and intermittent MiraLax, which she adjusts based on stool consistency. She reports a psychological focus on bowel movements, leading to repetitive bathroom usage despite diarrhea. No abdominal pain, nausea, or vomiting is reported, although straining during defecation persists. Variability in stool form is noted. Gastroesophageal Reflux Disease (GERD): GERD is managed through dietary modifications. Famotidine was discontinued previously due to reported low hemoglobin, which was perceived as a side effect. She does not currently report reflux symptoms. [facility] Medical History (Updated 11/29/24 @ 16:32 by Ami Broussard CNP) Hemorrhoids Constipation Anemia Acute sore throat Nasal congestion Viral illness Encounter for screening colonoscopy Colon cancer screening Dysphagia Mental and behavioral problem Obesity (BMI 30-39.9) Mood disorder Surgical History Hx of colonoscopy History of esophagogastroduodenoscopy (EGD) Surgical history unknown Family History Father Diabetes Skin cancer Hypertension Myocardial infarct, Onset Age: 73 Mother Breast cancer Skin cancer Graves disease Paternal Grandfather Diabetes Sister Skin cancer Social History Housing: Apartment Patient Tobacco Use Status: Never used Tobacco Tobacco use type: Cigarette e-Cigarette/Vaping Use: Never Used Second Hand Smoke Exposure: No service: No Current occupational status: disabled Cognitive needs: Yes Hearing needs: Yes Vision needs: Yes Review of Systems Const Reports as per HPI ENT Reports as per HPI Card Reports as per HPI Resp Reports as per HPI GI Reports as per HPI Reports as per HPI Physical Exam Vital Signs: Last Vital Signs BP 115/68 11/29/24 09:40 Pulse Ox 96 11/29/24 09:40 Oxygen Delivery Method Room Air 11/29/24 09:40 BMI result Body Mass Index 32.8 Const General: healthy appearing, no acute distress and well developed Nutritional Appearance: average body habitus Orientation/consciousness: patient oriented x3 HEENT Head: Yes normal to inspection, Yes normocephalic and Yes atraumatic Face and sinus: Yes normal facial exam Eyes General: appearance normal, both eyes and all related structures Neck Neck: Yes normal visual inspection Resp Effort & Inspection: normal respiratory effort, able to speak in complete sentences, no tracheal deviation and symmetric chest movement Auscultation: clear to auscultation bilaterally Cardio Jugular venous distension: no JVD Rate: regular rate Rhythm: regular rhythm Heart sounds: S1 normal heart sound present, S2 normal heart sound present, no gallops and no murmurs GI Inspection: Yes normal to inspection, No distended and Yes obesity Palpation (GI): Soft to palpation, not firm, nontender and No hepatosplenomegaly present Auscultation: normal bowel sounds Rectal Exam - Female: normal sphincter tone, External hemorrhoid(s) present, No fecal impaction, No Lesions present (GI), No Anal fissure(s) present, hemorrhoids, No Excoriation present (GI), No mass and tenderness Neuro General: patient oriented x3 Gait exam (Neuro): Normal gait present Psych Appearance: grossly normal Mental Status: mental status grossly normal Speech and movement: Normal speech and movement present Affect: normal affect Attitude: cooperative Thought process: Normal thought process present Thought content: Normal thought content present Insight: Good insight present (Psych) Judgement: Good judgement present (Psych) Assessment & Plan Assessment & Plan (1) Constipation: Comment: Code(s): K59.00 - Constipation, unspecified Category: Medical Qualifiers: Constipation type: unspecified constipation type Qualified Code(s): K59.00 - Constipation, unspecified Plan: Symptoms fluctuating between mild constipation and loose stools. Adherence is a work in progress. Address variable stool consistency and reinforce behavioral interventions. Pending stool sample (Calprotectin, Fecal). Medications: -Increase Senna-docusate to 2 tablets po qhs. -Continue Miralax prn (omit if stools trend Type 6-7). -Reinforce medication adherence instructions with caregiver. Lifestyle Recommendations: -Increase daily fiber intake with fruits, vegetables, legumes, nuts, and seeds. -Maintain adequate hydration. -Behavioral modification: limit toilet time to 5 minutes. Utilize a timer to assist with adherence. Written instructions provided as reinforcement. Referrals / Coordination of Care:Continue monitoring stool sample results for further guidance. Follow-Up Plan: Reassess in 3 months for medication effectiveness, stool consistency, and adherence to behavioral recommendations. Caregiver to track stool patterns. Return sooner if new or worsening symptoms arise (e.g., rectal bleeding, severe constipation, or diarrhea). (2) GERD (gastroesophageal reflux disease): Comment: 08/21/22 EGD- GERD, gastritis, Fundic gland polyp Code(s): K21.9 - Gastro-esophageal reflux disease without esophagitis Category: Medical Qualifiers: Esophagitis presence: without esophagitis Qualified Code(s): K21.9 - Gastro-esophageal reflux disease without esophagitis Plan: Controlled with dietary modification (e.g., decaffeination, avoidance of triggering foods). Lifestyle Recommendations: Continue dietary adjustments. Limit fast food consumption due to dual impact on reflux and constipation. (3) Hemorrhoids: Code(s): K64.9 - Unspecified hemorrhoids Category: Medical Qualifiers: Hemorrhoid type: first degree Qualified Code(s): K64.0 - First degree hemorrhoids Plan: Stable; non-painful, non-inflamed. Prevent exacerbations due to prolonged toilet sitting or straining. Medications:Prescribed hydrocortisone ointment to José Miguel (IIIMOBI). To be used prn for itching, pain, or inflammation. Lifestyle Recommendations: -Avoid prolonged toilet sitting and straining. -Consider medicated wipes if hemorrhoid symptoms worsen. Follow-Up Plan: Monitor symptoms. Return sooner if hemorrhoids worsen or additional concerns. Plan Follow up in 3 months or sooner as needed Time: I spent a total of 40 minutes on the date of encounter which includes: Preparing to see the patient (reviewed previous documentation, test results and medical history) Performing a medically appropriate exam and/or evaluation Ordering medications, tests, and procedures Documenting clinical information in the health record insert Medications: New hydrocortisone 1% Apply sparingly, up to twice daily as needed 1 appl [place] BID PRN 28.4 grams 2RF hemorrhoids Changed From polyethylene glycol 3350 (Miralax) Take 17G (one cap full) daily with 8oz of water 17 grams PO DAILY 30 days 238 grams 2RF constipation To polyethylene glycol 3350 (Miralax) Take 17G (one cap full) daily with 8oz of water 17 grams PO DAILY PRN Coding Level of Care Code Established Pt Est Pt Level 5 (16770) Patient Type Established Diagnoses Constipation, unspecified constipation type K59.00 Constipation type: unspecified constipation type Gastroesophageal reflux disease without esophagitis K21.9 Esophagitis presence: without esophagitis Grade I hemorrhoids K64.0 Hemorrhoid type: first degree
[2024-11-29 09:40] VITALS: BP 115/68; O2SAT 96; BMI 32.8
--- OUTSIDE RECORDS SUMMARY | 2024-11-29 10:19 | XMS_ITS | Encounter Summary ---
Author Organization [employer] [facility] Address [address] [place] [address] [address] [place] [address] Care Team Providers Care Gopherman Name Role Phone Unavailable Primary Care Provider Unavailabl e Reason for Visit * Reason Onset Date Comments referral mail out 09/17/2022 Encounter Details Date Type Department Care Team ([facility] Contact Info) Description 09/17/2022 Telephone [facility] [address] [place], [place] [phone] Winnie Lewis BDMoshe [address] [place], [place] [phone] referral mail out Social History Tobacco Use [...]
--- OUTSIDE RECORDS SUMMARY | 2024-11-29 10:19 | XMS_ITS | Patient Health Record ---
[facility] Address [address] [place] [address] Care Team Providers Care Global Professional Name Role Phone Mal Potter Primary Care Provider Lacey Monte Unavailable [phone] Allergies No Known Allergies Reason For Referral No Information Medications Medication SIG (Take, Route, Frequency, Duration) Notes Start Date End Date Status Vitamin D3 250 MCG (89760 UT) as directed Orally Active Triamcinolone Acetonide 0.025 % 1 application Externally Once a day Active Fiber Therapy 500 MG 2 tablets with a fu ll glass of water as needed Orally Six times a day Active Ketoconazole 2 % 1 application Arcade Attendant ally Once a day Active Sucralfate 1 [...] Date Coverage End Date [employer] Claims [address] [place] [phone] [id number] Moraima Cadena Self - patient is the insured Medical (General) History Medical History History ICD Code Anemia mood disorder Obesity Mental and behavioral problem Anxiety asthma Reflux ( GERD) Surgical History Surgery Date(Month/Year)
== END 2024-11-29 10:27 | disposition home or self-care (01) ==
LOC: HO.HGI 09:18
PROVIDERS: PCP Internal Medicine; Visit Provider Nurse Practitioner Family
DX: K59.00 Constipation, unspecified (principal); K21.9 Gastro-esophageal reflux disease without esophagitis; K64.0 First degree hemorrhoids
CPT/HCPCS: 99215

== ENCOUNTER → 2024-11-29 09:17 | Outpatient (BNVA) | payer OTHER, SELFPAY | PROVIDERS: PCP Internal Medicine; Visit Provider Nurse Practitioner Family | DX: K64.0 First degree hemorrhoids (principal); K59.00 Constipation, unspecified; K21.9 Gastro-esophageal reflux disease without esophagitis | CPT/HCPCS: 99212 ==

== ENCOUNTER 2024-12-23 09:02 | Outpatient (AMB) | payer OTHER, SELFPAY ==
--- NOTE | 2024-12-23 09:10 | MHC.PC.OV ---
Vital Signs 12/23/24 09:11 Height 5 ft 4 in Weight 186 lb BMI 31.9 BP 102/52 L Blood Pressure Location Lt brachial Position Sitting Pulse 68 Pulse Source Pulse Oximeter Pulse Oximetry (%) 98 Oxygen Delivery Method Room Air Intake Visit Reasons: mood disorder, constipation Allergies No Known Allergies (No Known Allergies*) Allergy (Verified 12/23/24 09:11) Medication List - Last Reconciled 12/23/24 by Mal Potter MD buspirone 5 mg PO BID clonidine HCl 0.1 mg PO BEDTIME fluoxetine 40 mg PO DAILY [Gloves medium As directed large pull-up, wipes, gloves, panty liners] hydrocortisone 1% 1 appl [place] BID PRN [Large pull up large pull-up, wipes, gloves, panty liners] lorazepam 0.5 mg PO BID PRN naproxen 500 mg PO Q12H PRN [Panty liners As directed large pull-up, wipes, gloves, panty liners] polyethylene glycol 3350 (Miralax) 17 grams PO DAILY PRN sennosides-docusate sodium 8.6-50 mg (Senna-S) 2 tab-caps (2 x 8.6-50 mg) PO BEDTIME 90 days trazodone 50 mg PO BEDTIME PRN triamcinolone acetonide 0.025% 1 appl topical BID [Wipes large pull-up, wipes, gloves, panty liners] Tobacco use date assessed: 08/17/24 Dental Screening Dental Screen Date: 08/17/24 HPI mood disorder, constipation HPI Details n [facility], constipation PFSH Medical History (Updated 11/29/24 @ 16:32 by Ami Broussard CNP) Hemorrhoids Constipation Anemia Acute sore throat Nasal congestion Viral illness Encounter for screening colonoscopy Colon cancer screening Dysphagia Mental and behavioral problem Obesity (BMI 30-39.9) Mood disorder Surgical History Hx of colonoscopy History of esophagogastroduodenoscopy (EGD) Surgical history unknown Family History Father Diabetes Skin cancer Hypertension Myocardial infarct, Onset Age: 73 Mother Breast cancer Skin cancer Graves disease Paternal Grandfather Diabetes Sister Skin cancer Social History Housing: Apartment Patient Tobacco Use Status: Never used Tobacco Tobacco use type: Cigarette e-Cigarette/Vaping Use: Never Used Second Hand Smoke Exposure: No service: No Current occupational status: disabled Cognitive needs: Yes Hearing needs: Yes Vision needs: Yes Questionnaire PHQ-9 Over the last 2 weeks, how often have you been bothered by any of the following problems? 1. Little interest or pleasure in doing things: several days 2. Feeling down, depressed, or hopeless: nearly every day 3. Trouble falling or staying asleep, or sleeping too much: nearly every day 4. Feeling tired or having little energy: several days 5. Poor appetite or overeating: several days 6. Feeling bad about yourself - or that you are a failure or have let yourself or your family down: several days 7. Trouble concentrating on things, such as reading the newspaper or watching television: several days 8. Moving or speaking so slowly that other people could have noticed. Or the opposite - being so fidgety or restless that you have been moving around a lot more than usual: more than half the days 9. Thoughts that you would be better off or of hurting yourself in some way: not at all Total score: 13 Depression Screening Interpretation: Positive Depression Screening Done: Yes Source: Developed by Drs. Bryan Wheat, Rissa Da Silva, Macario Haley and colleagues, with an educational romeo from [employer]. Thrive Questionnaire Date Thrive assessed: 08/10/24 I am a: Patient What is your living situation today?: I have a steady place to live Within the past 12 months, did the food you bought not last and you didn't have the money to get more?: I choose not to answer this question Within the past 12 months, did you worry whether your food would run out before you got money to buy more?: I choose not to answer this question Do you have trouble paying for medicines?: No Do you have trouble getting transportation to medical appointments?: No Do you have trouble paying your heating and electricity bill?: No Do you have trouble taking care of your child, family member or friend?: No Do you have trouble with day-to-day activities such as bathing, preparing meals, shopping, managing finances, etc.?: Yes Are you currently unemployed and looking for a job?: Yes Are you interested in more education?: No Currently or been in a relationship where the following occur: No concerns reported THRIVE Score: 0 AUDIT C Alcohol Use Questionnaire (AUDIT-C) 1. How often do you have a drink containing alcohol?: Never 3. How often do you have six or more drinks on one occasion?: Never Total Score: 0 ZE-7 AMB Questionnaire ZE-7 Date EZ - 7 assessed: 08/17/24 Source: Developed by Drs. Bryan Wheat, Rissa Da Silva, Macario Haley and colleagues, with an educational romeo from [employer]. Physical exam (Primary Care) Vital Signs: Last Vital Signs Pulse 68 12/23/24 09:11 BP 102/52 L 12/23/24 09:11 Pulse Ox 98 12/23/24 09:11 Oxygen Delivery Method Room Air 12/23/24 09:11 BMI result Body Mass Index 31.9 Tobacco/Smoking Status: Tobacco use Status Tobacco use date assessed 08/17/24 12/23/24 09:14 Patient Tobacco Use Status Never used Tobacco 12/23/24 09:14 Tobacco use type Cigarette 12/23/24 09:14 e-Cigarette/Vaping Use Never Used 12/23/24 09:14 PHQ-9: PHQ-9 Score PHQ-9: Total score 13 12/23/24 10:18 Depression Screening Interpretation: Positive Thrive Assessment: Date of Thrive Assessment Date Thrive assessed 08/10/24 12/23/24 09:14 Currently or been in a relationship where the following occur: No concerns reported Const General: alert; No acute distress Eyes Conjunctivae: conjunctivae normal Resp Auscultation: clear to auscultation bilaterally Cardio Rate: regular rate Rhythm: regular rhythm GI Inspection: Yes normal to inspection Extrem General: Yes normal to inspection and No edema Coding Level of Care Code Est Pt Level 4 (15967) Complex EM visit Add On G2211 Diagnoses Mood disorder F39 Gastroesophageal reflux disease without esophagitis K21.9 Esophagitis presence: without esophagitis Obesity (BMI 30-39.9) E66.9 Constipation, unspecified constipation type K59.00 Constipation type: unspecified constipation type Assessment & Plan Assessment & Plan (1) Mood disorder: Code(s): F39 - Unspecified mood [affective] disorder Category: Medical Plan: Continue to follow-up with psychiatry on fluoxetine clonidine buspirone lorazepam trazodone (2) GERD (gastroesophageal reflux disease): Comment: 08/21/22 EGD- GERD, gastritis, Fundic gland polyp Code(s): K21.9 - Gastro-esophageal reflux disease without esophagitis Category: Medical Qualifiers: Esophagitis presence: without esophagitis Qualified Code(s): K21.9 - Gastro-esophageal reflux disease without esophagitis Plan: Avoid the foods that causes that usually spicy foods, tomato products, juices, coffee, soda and foods that your sensitive to. After eating do not lie down, allow 3-4 hours before in lie down. And keep the head of bed above 30 degrees to avoid the acid from going up. (3) Obesity (BMI 30-39.9): Code(s): E66.9 - Obesity, unspecified Category: Medical Plan: Diet and exercise (4) Constipation: Code(s): K59.00 - Constipation, unspecified Category: Medical Qualifiers: Constipation type: unspecified constipation type Qualified Code(s): K59.00 - Constipation, unspecified Plan: Three rules for constipation 1. Diet need to have a high fiber diet less of meat 2. Increase oral fluids 3. Exercise patient has been placed on senna and Colace plus MiraLax PRN Plan History of Present Illness The patient is a 54-year-old female presenting for a follow-up visit. She has a history of obesity and has recently experienced a 5-pound weight loss. The patient also has a history of gastroesophageal reflux disease (GERD) and mood disorder, for which she is under psychiatric care and taking medications including fluoxetine, clonidine, buspirone, lorazepam, and trazodone. The patient has been diagnosed with constipation and was seen by gastroenterology in November 2018. She was prescribed Senna and MiraLAX, and dietary recommendations were provided to manage her condition. The patient reports anxiety related to bowel movements, which affects her eating habits and contributes to her weight loss. The patient has a history of cholelithiasis and has undergone blood work in July 2021, which showed normal blood counts and cholesterol levels. Her LDL cholesterol was noted to be 90 mg/dL, and she had good levels of B12 and folic acid. Health Maintenance - Mammogram is up to date - Colon cancer screening with stool test completed in August 2022 - Blood work in July 2021 showed normal blood counts and cholesterol levels Social History - The patient has anxiety related to bowel movements, affecting her eating habits. - She is advised to consume green leafy vegetables and reduce meat intake to manage constipation. - The patient is encouraged to drink four 16-ounce bottles of water daily. Review of Systems - Gastrointestinal: Reports anxiety related to bowel movements, denies bleeding. - General: Reports weight loss, denies cough and swelling. Physical Exam Results - Labs: Blood work in July 2021 showed normal blood counts and cholesterol levels, LDL cholesterol at 90 mg/dL, good B12 and folic acid levels. Plan Patient was informed and verbally consented to the use of an ambient scribe for clinic note documentation during this visit. 1. Obesity The patient is advised to continue with dietary modifications and increase physical activity to manage her weight. 2. Gastroesophageal Reflux Disease (Gerd) The patient is advised to follow dietary recommendations and continue with current medications to manage GERD symptoms. 3. Mood Disorder The patient is to continue follow-up with psychiatry and maintain her current medication regimen, including fluoxetine, clonidine, buspirone, lorazepam, and trazodone. 4. Constipation The patient is advised to continue using Senna and MiraLAX as needed, increase water intake, and incorporate dietary fiber to manage constipation. 5. Cholelithiasis The patient is advised to monitor symptoms and follow up if any new symptoms arise. Discussion Notes During the visit, I discussed with the patient the importance of maintaining a balanced diet and regular exercise to manage obesity and GERD. We reviewed her current medications for mood disorder and emphasized the need for regular psychiatric follow-up. I advised her on the management of constipation, including the use of Senna and MiraLAX, increased water intake, and dietary fiber. We also discussed the importance of monitoring symptoms related to cholelithiasis and the need for follow-up if new symptoms arise. Patient Instructions - Continue with dietary modifications and increase physical activity. - Follow dietary recommendations and continue current medications for GERD. - Maintain regular follow-up with psychiatry and continue current medications for mood disorder. - Use Senna and MiraLAX as needed, increase water intake, and incorporate dietary fiber for constipation management. - Monitor symptoms related to cholelithiasis and follow up if new symptoms arise. Orders: Orders Lipid Panel Today E78.00 - Pure hypercholesterolemia, unspecified, K59.00 - Constipation, unspecified Free T4 (Free Thyroxine) Today K59.00 - Constipation, unspecified Vitamin B12 and Folate Today K59.00 - Constipation, unspecified Magnesium Today K59.00 - Constipation, unspecified Complete Blood Count Auto Diff Today K59.00 - Constipation, unspecified Comprehensive Met. Panel Today K59.00 - Constipation, unspecified Thyroid Stimulating Hormone Today K59.00 - Constipation, unspecified Vitamin D 25-OH Total Today K59.00 - Constipation, unspecified UA CC w/rflx Micro + Cult Today K59.00 - Constipation, unspecified, R30.0 - Dysuria
[2024-12-23 09:11] VITALS: BP 102/52; PULSE 68; O2SAT 98; BMI 31.9
--- OUTSIDE RECORDS SUMMARY | 2024-12-23 09:53 | XMS_ITS | Encounter Summary ---
Author Organization [employer] [facility] Address [address] [place] [address] Care Team Providers Care Cabinet Builder Name Role Phone Unavailable Primary Care Provider Unavailabl e Encounter Details Date Type Department Care Team (Latest Contact Info) Description 10/19/[address] [facility] CONVERSIONS Dental, Provider, DDS Social [...] Care Team (Late st Contact Info) Description 12/28/2024 9:00 AM EDT Office Visit [facility] [address] [place], [place] [phone] Winnie Lewis BDS [address] [place], [place] [phone] documented as of this encounter Visit Diagnoses Not on filedocumented in this encounter
--- OUTSIDE RECORDS SUMMARY | 2024-12-23 09:53 | XMS_ITS | Encounter Summary ---
Author Organization [employer] [facility] Address [address] [place] [address] [address] [place] [address] Care Team Providers Care Logging Tractor Operator Swamp Name Role Phone Unavailable Primary Care Provider Unavailabl e Reason for Visit * Reason Onset Date Comments referral 09/02/2022 Encounter Details Date Type Department Care Team (Late st Contact Info) Description 09/02/2022 Telephone [facility] [address] [place], [place] [phone] Winnie Lewis BDS [address] [place], [place] [phone] referral Social History Tobacco Use Types Packs/Day [...] Description 12/28/2024 9:00 AM EDT Office Visit [facility] [address] [place] [address] Winnie Lewis BDS [address] [place] [address] documented as of this encounter Visit Diagnoses Not on filedocumented in this encounter
--- OUTSIDE RECORDS SUMMARY | 2024-12-23 09:53 | XMS_ITS | Encounter Summary ---
Author Organization [facility] Address [address] [place] [address] Care Team Providers Care Recruiting Coordinator Name Role Phone Unavailable Primary Care Provider Unavailabl e Encounter Details Date Type Department Care Team (Latest Contact Info) Description 11/13/2020 Abstract [facility] CONVERSIONS Dental, Provider, DDS Social History [...] Description 12/28/2024 9:00 AM EDT Office Visit [facility] [address] [place], [place] [phone] Winnie Lewis BDS [address] [place], [place] [phone] documented as of this encounter Visit Diagnoses Not on filedocumented in this encounter
--- OUTSIDE RECORDS SUMMARY | 2024-12-23 09:53 | XMS_ITS | Patient Health Record ---
Author [facility] Address [address] [place] [address] Care Team Providers Care Spreader Operator Automatic Name Role Phone Mal Potter Primary Care Provider Lacey Monte Unavailable [phone] Allergies No Known Allergies Reason For Referral No Information Medications Medication SIG (Take, Route, Frequency, Duration) Notes Start Date End Date Status Vitamin D3 250 MCG (00904 UT) as directed Orally Active Triamcinolone Acetonide 0.025 % 1 application Externally Once a day Active Fiber Therapy 500 MG 2 tablets with a fu ll glass of water as needed Orally Six times a day Active Ketoconazole 2 % 1 application Building Maintenance Supervisor ally Once a day Active Sucralfate 1 [...] Date Coverage End Date [employer] [place] [employer] Claims [address] [place] [phone] [id number] Moraima Cadena Self - patient is the insured Medical (General) History Medical History History ICD Code Anemia mood disorder Obesity Mental and behavioral problem Anxiety asthma Reflux ( GERD) Surgical History Surgery Date(Month/Year)
--- OUTSIDE RECORDS SUMMARY | 2024-12-23 09:53 | XMS_ITS | Encounter Summary ---
Author Organization [facility] Address [address] [place] [address] [address], [place] [address] Care Team Providers Care Clinical Mental Health Counselor Name Role Phone Unavailable Primary Care Provider Unavailabl e Reason for Visit * Reason Onset Date Comments referral mail out 09/17/2022 Encounter Details Date Type Department Care Team ([facility] Contact Info) Description 09/17/2022 Telephone [facility] D[facility]AL [address] [place] [phone] Winnie Lewis BDS [address] [place], [place] [phone] referral mail out Social History Tobacco Use [...] Upcoming Encounters Date Type Department Care Team ([facility] Contact Info) Description 12/28/2024 9:00 AM EDT Office Visit [facility] [address] [place] [phone] Winnie Lewis, BDS [address] [facility] [place] [phone] documented as of this encounter Visit Diagnoses Not on filedocumented in this encounter
--- OUTSIDE RECORDS SUMMARY | 2024-12-23 09:53 | XMS_ITS | Clinical Summary ---
Author Organization [employer] Address [address] [facility] 7 [place] [address] Care Team Providers Care Shellfish Bed Worker Name Role Phone Unavailable Primary Care [...] Encounters Date Type Department Care Team Description 11/02/2024 9:00 AM EDT Office Visit [facility] ADULT DENTAL [address] [place] [address] Polina Rocha 10/30/2024 Travel from Last 3 Months Social History [...] Sign Reading Time Taken Comments Blood Pressure 104/60 11/02/2024 9:07 AM EDT Pulse 51 11/02/2024 9:07 AM EDT Temperature - - Respiratory Rate - - Oxygen Saturation - - Inhaled Oxygen Concentration - - Weight - - Height - - Body Mass Index - - Plan of Treatment Upcoming Encounters Date Type Department Care Team (Late st Contact Info) Description 12/28/2024 9:00 AM EDT Office Visit [facility] DENTAL [address] [place] [address] Winnie Lewis, BDS [address] [place] [address] Health Maintenance Due Date Last Done Comments CT Colonography 1972 Colonoscopy 1972 Colorectal Cancer Screening 1972 Depression Screening 1972 FIT DNA/Cologuard 1972 FIT 1972 FOBT 1972 HIV Screening 1972 SDOH Screening 1972 Sigmoidoscopy 1972 Disability Screening 1972 Alcohol/Substance Use Screening 1984 Family Planning (PISQ) 11/19/1987 Hepatitis C Screening 1990 DTaP/Tdap/Td Vaccines (1 - Tdap) 11/19/1991 Hepatitis B Vaccines (1 of 3 - 19+ 3-dose series) 11/19/1991 Pap Smear 1993 Cervical Cancer Screening 2002 HPV/Cotest 2002 Mammogram 2012 Pneumococcal Vaccine: 50+ Years (1 of 1 - PCV) 2022 Zoster Vaccines (1 of 2) 2022 COVID-19 Vaccine (1 - 2023- season) 2024 Influenza Vaccine (#1) 2024 Dental Oral Exam 05/06/2025 11/02/2024, , 02/04/2023, Additional history exists Dental Prophylaxis 05/06/2025 11/02/2024, 0 04/28/2024, 10/07/2023, Additional history exists Dental X-Ray: Full Mouth 07/01/2025 06/30/2022 Tobacco Screening 11/02/2025 11/02/2024 Dental X-Ray: Bitewings 11/03/2025 11/03/19 25, 10/07/2023, 06/11/2022 RSV Patients and Patients Aged 60 years [...] patient's age to complete this topic Meningococcal B Vaccine Aged Out No l onger eligible based on patient's age to complete [...] Procedure Name Priority Date/Time Associated Diagnosis Comments TOPICAL APPLICATION OF FLUORIDE - EXCLUDING VARNISH Routine 11/02/2024 9:00 AM EDT INTRAORAL - PERIAPICAL EACH ADDITIONAL RADIOGRAPHIC IMAGE Routine 11/02/2024 9:00 AM EDT INTRAORAL - PERIAPICAL FIRST RADIOGRAPHIC IMAGE Routine 11/02/2024 9:00 AM EDT BITEWINGS - 4 RADIOGRAPHIC IMAGES Routine 11/02/2024 9:00 AM EDT PROPHYLAXIS - ADULT Routine 11/02/2024 9 :00 AM EDT CASE PRESENTATION, DETAILED AND EXTENSIVE TREATMENT PLANNING Routine 11/02/2024 9:00 AM EDT PERIODIC ORAL EVALUATION - ESTABLISHED PATIENT Routine 11/02/2024 9:00 AM EDT PANORAMIC RADIOGRAPHIC IMAGE Routine 06/30/2022 3:00 PM EDT from Last 3 Months or Most Recently Relevant to Health Maintenance Insurance DENTAL - [facility] DENTAL - [facility]
== END 2024-12-23 10:35 | disposition home or self-care (01) ==
LOC: HO.HMCH 09:03
PROVIDERS: PCP Internal Medicine; Visit Provider Internal Medicine
DX: K21.9 Gastro-esophageal reflux disease without esophagitis (principal); F39 Unspecified mood [affective] disorder; E66.9 Obesity, unspecified; Z68.31 Body mass index [BMI] 31.0-31.9, adult; K59.00 Constipation, unspecified

== ENCOUNTER → 2024-12-23 09:02 | Outpatient (BNVA) | payer OTHER, SELFPAY | PROVIDERS: PCP Internal Medicine; Visit Provider Internal Medicine | DX: F39 Unspecified mood [affective] disorder (principal); K21.9 Gastro-esophageal reflux disease without esophagitis; E66.9 Obesity, unspecified; Z68.31 Body mass index [BMI] 31.0-31.9, adult; K59.00 Constipation, unspecified; K80.20 Calculus of gallbladder without cholecystitis without obstruction; Z79.899 Other long term (current) drug therapy; Z13.31 Encounter for screening for depression | CPT/HCPCS: 96127; 99212 ==

== ENCOUNTER 2025-01-04 08:23 | Outpatient (REF) | payer OTHER, SELFPAY ==
--- OUTSIDE RECORDS SUMMARY | 2025-01-04 09:17 | XMS_ITS | Encounter Summary ---
Author Organization [employer] [facility] Address [address] [place] [address] [address], [place] [address] Care Team Providers Care Cotton Jammer Name Role Phone Unavailable Primary Care Provider Unavailabl e Reason for Visit * Reason Onset Date Comments referral mail out 09/17/2022 Encounter Details Date Type Department Care Team ([facility] Contact Info) Description 09/17/2022 Telephone [facility] D[facility] [address] [place] [phone] Winnie Lewis BDS [address] [place], [place] [phone] referral mail out Social History Tobacco Use [...] Upcoming Encounters Date Type Department Care Team ([facility] Contact Info) Description 01/25/2025 9:00 AM EDT Office Visit [facility] [address] [place] [address] Winnie Lewis, BDS [address] [facility] [place] [address] documented as of this encounter Visit Diagnoses Not on filedocumented in this encounter
--- OUTSIDE RECORDS SUMMARY | 2025-01-04 09:17 | XMS_ITS | Encounter Summary ---
Author Organization [facility] Address [address] [place] [address] Care Team Providers Care Instructional Coordinator Name Role Phone Unavailable Primary Care Provider Unavailabl e Encounter Details Date Type Department Care Team (Latest Contact Info) Description 10/19/2018 Abstract [facility] CONVERSIONS Dental, Provider, DDS Social History [...] Care Team (Late st Contact Info) Description 01/25/2025 9:00 AM EDT Office Visit [facility] [address] [place], [place] [phone] Winnie Lewis BDS [address] [place], [place] [phone] documented as of this encounter Visit Diagnoses Not on filedocumented in this encounter
--- OUTSIDE RECORDS SUMMARY | 2025-01-04 09:17 | XMS_ITS | Encounter Summary ---
Author Organization [facility] Address [address] [place] [address] Care Team Providers Care Bit Grinder Name Role Phone Unavailable Primary Care Provider Unavailabl e Encounter Details Date Type Department Care Team (Latest Contact Info) Description 11/13/2020 Abstract [facility] CONVERSIONS Dental, Provider, DDS Social History [...] Description 01/25/2025 9:00 AM EDT Office Visit [facility] DENTAL [address] [place], [place] [phone] Winnie Lewis BDS [address] [place], [place] [phone] documented as of this encounter Visit Diagnoses Not on filedocumented in this encounter
--- OUTSIDE RECORDS SUMMARY | 2025-01-04 09:17 | XMS_ITS | Encounter Summary ---
Author Organization [employer] Address [address] [place] [address] [address] [place] [address] Care Team Providers Care Store Shopper Name Role Phone Unavailable Primary Care Provider Unavailabl e Reason for Visit * Reason Onset Date Comments referral 09/02/2022 Encounter Details Date Type Department Care Team (Late st Contact Info) Description 09/02/2022 Telephone [facility] DENTAL [address] [place] [address] Winnie Lewis BDS [address] [place], [place] [phone] referral Social History Tobacco Use Types Packs/Day [...] Description 01/25/2025 9:00 AM EDT Office Visit [facility] [address] [place] [address] Winnie Lewis BDS [address] [place] [address] documented as of this encounter Visit Diagnoses Not on filedocumented in this encounter
--- OUTSIDE RECORDS SUMMARY | 2025-01-04 09:17 | XMS_ITS | Patient Health Record ---
Author [facility] Address [address] [place] [address] Care Team Providers Care Director Of Reservations Name Role Phone Mal Potter Primary Care Provider Lacey Monte Unavailable [phone] Allergies No Known Allergies Reason For Referral No Information Medications Medication SIG (Take, Route, Frequency, Duration) Notes Start Date End Date Status Vitamin D3 250 MCG (31120 UT) as directed Orally Active Triamcinolone Acetonide 0.025 % 1 application Externally Once a day Active Fiber Therapy 500 MG 2 tablets with a fu ll glass of water as needed Orally Six times a day Active Ketoconazole 2 % 1 application Linotype Machinist Apprentice ally Once a day Active Sucralfate 1 [...] Date Coverage End Date [employer] Claims [address] [place] [address] [phone] [id number] Moraima Cadena Self - patient is the insured Medical (General) History Medical History History ICD Code Anemia mood disorder Obesity Mental and behavioral problem Anxiety asthma Reflux ( GERD) Surgical History Surgery Date(Month/Year)
--- OUTSIDE RECORDS SUMMARY | 2025-01-04 09:17 | XMS_ITS | Clinical Summary ---
Author Organization [employer] Address [address] [place] [address] [address], [place] [address] Care Team Providers Care Print Manager Name Role Phone Unavailable Primary Care [...] by mouth 2 times daily. 04/04/2024 Active LORazepam (Ativan) 0.5 MG tablet Take 1 tablet by mouth 2 times daily. 12/01/2024 Active traZODone (Desyrel) 50 MG tablet take 1 to 2 tablets by mouth every night at bedtime 12/14/2024 Active Encounters Date Type Department Care Team Description 12/28/2024 9:00 AM EDT Office Visit [facility] [address] [place] [address] Winnie Lewis BDS Dental caries (Primary Dx) 11/02/2024 9:00 AM EDT Office Visit [facility] ADULT DENTAL [address] [place] [address] Polina Patel 10/30/2024 Travel from Last 3 Months Social [...] Sign Reading Time Taken Comments Blood Pressure 112/70 12/28/2024 9:26 AM EDT Pulse 51 11/02/2024 9:07 AM EDT Temperature - - Respiratory Rate - - Oxygen Saturation - - Inhaled Oxygen Concentration - - Weight - - Height - - Body Mass Index - - Plan of Treatment Upcoming Encounters Date Type Department Care Team (Late st Contact Info) Description 01/25/2025 9:00 AM EDT Office Visit [facility] D[facility]AL [address] [place] [phone] Winnie Lewis, BDS [address] [place] [address] Health Maintenance Due Date Last Done Comments [...] of 2) 2022 COVID-19 Vaccine (1 - 2024- season) 2024 Influenza Vaccine (#1) 2024 Dental Oral Exam 05/06/2025 11/02/2024, , 02/04/2023, Additional history exists Dental Prophylaxis 05/06/2025 11/02/2024, 0 04/28/2024, 10/07/2023, Additional history exists Dental X-Ray: Full Mouth 07/01/2025 06/30/2022 Tobacco Screening 11/02/2025 11/02/2024 Dental X-Ray: Bitewings 11/03/2025 11/03/19, 10/07/2023, 06/11/2022 RSV Patients and Patients Aged [...] Procedure Name Priority Date/Time Associated Diagnosis Comments 19 MO RESIN-BASED COMPOSITE - 2 SURF, POSTERIOR Routine 12/28/2024 9:00 AM EDT TOPICAL APPLICATION OF FLUORIDE - EXCLUDING VARNISH [...] Recently Relevant to Health Maintenance Insurance DENTAL [facility] D[facility]AL [facility]
[2025-01-04 11:50] LABS: MANUAL DIFF FLAG NO
[2025-01-04 12:12] LABS: Hematocrit 36.0 % (37.0-47.0); Hemoglobin 11.6 g/dl (12.0-16.0); Imm Gran Abs Auto 0.01 X10*3/uL (0.00-0.03); Imm Gran Pct Auto 0.2 % (0.0-0.4); Lymphocytes Absolute Auto 0.9 X10*3/uL (1.2-4.9); Mean Corpuscular HGB Conc 32.2 g/dl (31.0-35.0); Mean Corpuscular Hemoglobin 26.5 pg (27.0-33.0); Mean Corpuscular Volume 82.2 fL (80.0-98.0); NRBC Abs Auto 0.000 X10*3/uL (0.0-0.012); NRBC Pct Auto 0.0 /100WBC (0.0-0.2); Platelet Count 206 X10*3/uL (160-400); Red Blood Count 4.38 X10*6/uL (4.20-5.50); White Blood Count 4.5 X10*3/uL (4.8-10.8)
[2025-01-04 12:19] LABS: Appearance Urine Clear; Glucose Urine UA Negative (Negative); PH 6.5 (5.0-9.0); Specific Gravity - Urine 1.020 (1.005-1.025)
[2025-01-04 12:41] LABS: Folate 13.6 ng/mL (> or = 4.0); Vitamin B12 518 pg/mL (200-900)
[2025-01-04 12:45] LABS: Free T4 (Free Thyroxine) 0.96 ng/dL (0.71-1.85); Thyroid Stimulating Hormone 1.35 uIU/mL (0.32-4.0)
[2025-01-04 12:46] LABS: Anion Gap 11 (12-20)
[2025-01-04 12:51] LABS: Alanine Aminotransferase 10 U/L (0-31); Albumin Level 4.4 g/dL (3.5-5.0); Alkaline Phosphatase 56 U/L (39-117); Aspartate Amino Transferase 17 U/L (5-31); Blood Urea Nitrogen 11 mg/dL (9-16); Calcium 9.3 mg/dL (8.4-10.2); Carbon Dioxide 26 mmol/L (22-29); Chloride 108 mmol/L (96-108); Cholesterol 166 mg/dL (<200); Estimated Glomerular Filt Rate > 60; HDL Cholesterol 59 mg/dL (>40); Magnesium 2.0 mg/dL (1.6-2.6); Potassium 3.9 mmol/L (3.3-5.1); Sodium 141 mmol/L (135-145); Total Protein 7.1 g/dL (6.5-8.0); Triglycerides 67 mg/dL (<150)
== END 2025-01-04 08:24 | disposition home or self-care (01) ==
LOC: HO.WFDLDS 08:23
PROVIDERS: Visit Provider Internal Medicine
DX: Z13.21 Encounter for screening for nutritional disorder (principal); K59.00 Constipation, unspecified; R30.0 Dysuria; E78.00 Pure hypercholesterolemia, unspecified
CPT/HCPCS: 36415; 80053; 80061; 81003; 82306; 82607; 82746; 83735; 84439; 84443; 85025

== ENCOUNTER 2025-01-10 16:30 | Outpatient (AMB) | payer OTHER, SELFPAY ==
[2025-01-10 16:35] VITALS: BP 142/98; PULSE 92; TEMP 36.3; O2SAT 98; BMI 29.9
--- NOTE | 2025-01-10 16:35 | A.OFFPC_ITS ---
Vital Signs 01/10/25 16:35 Height 5 ft 4 in Weight 174 lb 4 oz BMI 29.9 BP 142/98 H Blood Pressure Location Lt brachial Position Sitting Pulse 92 Pulse Source Pulse Oximeter Temp 97.3 F Temp Source Temporal Artery Scan Pulse Oximetry (%) 98 Oxygen Delivery Method Room Air Intake Visit Reasons: No appetite Accompanied by: Sister Allergies No Known Allergies (No Known Allergies*) Allergy (Verified 01/10/25 16:37) Tobacco use date assessed: 01/10/25 Dental Screening Dental Screen Date: 01/10/25 Did you have a dental visit in the last 12 months?: Yes Did you have a dental problem in the last 6 months where you did not have access to dental care?: No Was dental information given to patient?: Patient has dentist [facility] Medical History Hemorrhoids Constipation Anemia Acute sore throat Nasal congestion Viral illness Encounter for screening colonoscopy Colon cancer screening Dysphagia Mental and behavioral problem Obesity (BMI 30-39.9) Mood disorder Surgical History Hx of colonoscopy History of esophagogastroduodenoscopy (EGD) Surgical history unknown Family History Father Diabetes Skin cancer Hypertension Myocardial infarct, Onset Age: 73 Mother Breast cancer Skin cancer Graves disease Paternal Grandfather Diabetes Sister Skin cancer Social History Housing: Apartment Patient Tobacco Use Status: Never used Tobacco Tobacco use type: Cigarette e-Cigarette/Vaping Use: Never Used Second Hand Smoke Exposure: No service: No Current occupational status: disabled Cognitive needs: Yes Hearing needs: Yes Vision needs: Yes Questionnaire PHQ-9 Over the last 2 weeks, how often have you been bothered by any of the following problems? 1. Little interest or pleasure in doing things: several days 2. Feeling down, depressed, or hopeless: nearly every day 3. Trouble falling or staying asleep, or sleeping too much: nearly every day 4. Feeling tired or having little energy: several days 5. Poor appetite or overeating: several days 6. Feeling bad about yourself - or that you are a failure or have let yourself or your family down: several days 7. Trouble concentrating on things, such as reading the newspaper or watching television: several days 8. Moving or speaking so slowly that other people could have noticed. Or the opposite - being so fidgety or restless that you have been moving around a lot more than usual: more than half the days 9. Thoughts that you would be better off or of hurting yourself in some way: not at all Total score: 13 Depression Screening Interpretation: Positive Depression Screening Done: Yes Source: Developed by Drs. Bryan Wheat, Rissa Da Silva, Macario Haley and colleagues, with an educational romeo from [employer]. Thrive Questionnaire Date Thrive assessed: 08/10/24 I am a: Patient What is your living situation today?: I have a steady place to live Within the past 12 months, did the food you bought not last and you didn't have the money to get more?: I choose not to answer this question Within the past 12 months, did you worry whether your food would run out before you got money to buy more?: I choose not to answer this question Do you have trouble paying for medicines?: No Do you have trouble getting transportation to medical appointments?: No Do you have trouble paying your heating and electricity bill?: No Do you have trouble taking care of your child, family member or friend?: No Do you have trouble with day-to-day activities such as bathing, preparing meals, shopping, managing finances, etc.?: Yes Are you currently unemployed and looking for a job?: Yes Are you interested in more education?: No Currently or been in a relationship where the following occur: No concerns reported THRIVE Score: 0 AUDIT C Alcohol Use Questionnaire (AUDIT-C) 1. How often do you have a drink containing alcohol?: Never 3. How often do you have six or more drinks on one occasion?: Never Total Score: 0 ZE-7 AMB Questionnaire ZE-7 Date ZE - 7 assessed: 08/17/24 Feeling nervous, anxious, or on edge: 2 = More than half the days Not being able to stop or control worryin = Several days Worrying too much about different things: 3 = Nearly every day Trouble relaxin = Nearly every day Being so restless that it is hard to sit still: 1 = Several days Becoming easily annoyed or irritable: 1 = Several days Feeling afraid as if something awful might happen: 1 = Several days Total ZE-7 score (0-4 normal; 5-9 mild; 10-14 moderate; 15-21 severe): 12 Source: Developed by Drs. Bryan Wheat, Rissa Da Silva, Macario Haley and colleagues, with an educational romeo from [employer]. Physical exam (Primary Care) Vital Signs: Last Vital Signs Temp 97.3 F 01/10/25 16:35 Pulse 92 01/10/25 16:35 BP 142/98 H 01/10/25 16:35 Pulse Ox 98 01/10/25 16:35 Oxygen Delivery Method Room Air 01/10/25 16:35 BMI result Body Mass Index 29.9 Tobacco/Smoking Status: Tobacco use Status Tobacco use date assessed 01/10/25 01/10/25 16:40 Patient Tobacco Use Status Never used Tobacco 01/10/25 16:40 Tobacco use type Cigarette 01/10/25 16:40 e-Cigarette/Vaping Use Never Used 01/10/25 16:40 PHQ-9: PHQ-9 Score PHQ-9: Total score 13 01/10/25 16:40 Depression Screening Interpretation: Positive Thrive Assessment: Date of Thrive Assessment Date Thrive assessed 08/10/24 01/10/25 16:40 Currently or been in a relationship where the following occur: No concerns reported Const General: alert; No acute distress Eyes Conjunctivae: conjunctivae normal Resp Auscultation: clear to auscultation bilaterally Cardio Rate: regular rate Rhythm: regular rhythm GI Inspection: Yes normal to inspection Extrem General: Yes normal to inspection and No edema Coding Level of Care Code Est Pt Level 4 (15678) Complex EM visit Add On G2211 Diagnoses Mental and behavioral problem F48.9; F69 Gastroesophageal reflux disease without esophagitis K21.9 Esophagitis presence: without esophagitis Weight loss R63.4 RUQ abdominal pain R10.11 Assessment & Plan Assessment & Plan (1) Mental and behavioral problem: Comment: GEMMA Rojas IC DESIGN ENGINEER Code(s): F48.9 - Nonpsychotic mental disorder, unspecified; F69 - Unspecified disorder of adult personality and behavior Category: Medical Plan: Continue follow-up with psychiatry (2) GERD (gastroesophageal reflux disease): Comment: 08/21/22 EGD- GERD, gastritis, Fundic gland polyp Code(s): K21.9 - Gastro-esophageal reflux disease without esophagitis Category: Medical Qualifiers: Esophagitis presence: without esophagitis Qualified Code(s): K21.9 - Gastro-esophageal reflux disease without esophagitis Plan: Avoid the foods that causes that usually spicy foods, tomato products, juices, coffee, soda and foods that your sensitive to. After eating do not lie down, allow 3-4 hours before in lie down. And keep the head of bed above 30 degrees to avoid the acid from going up. (3) Weight loss: Code(s): R63.4 - Abnormal weight loss Category: Medical Plan: Patient has a schedule with Gastroenterology (4) RUQ abdominal pain: Code(s): R10.11 - Right upper quadrant pain Category: Medical Plan History of Present Illness The patient is a 54-year-old female presenting with weight loss and follow-up for multiple chronic conditions. The patient has experienced a weight loss of 25 pounds over the last four months. She reports a decreased appetite and reluctance to eat, consuming minimal food such as oatmeal, soup, and small portions of sandwiches. The patient expresses anxiety related to her weight loss and eating habits. The patient has a history of mood disorder and is currently under psychiatric care. She was previously on buspirone, which was ineffective, and has been switched to risperidone, which caused gastrointestinal side effects such as diarrhea and stomach pain. The patient is also taking fluoxetine and has been advised to continue psychiatric follow-up. The patient has a history of gastroesophageal reflux disease (GERD) and has been on omeprazole for several years. She reports significant reflux and has undergone previous diagnostic tests confirming this condition. The patient is scheduled for a follow-up with gastroenterology. The patient has iron deficiency anemia, with recent blood work showing hemoglobin levels at 11.6 g/dL. She has been advised to maintain a diet rich in iron and B12 to manage her anemia. The patient has a history of cholelithiasis, but no recent complications were discussed. Preventative care measures include an up-to-date mammogram and a colonoscopy performed in August 2022. Health Maintenance - Mammogram is up to date - Colonoscopy was performed in August 2022 Social History - Nutritional intake: Consumes minimal food such as oatmeal, soup, and small po rtions of sandwiches. - Weight management: Experienced a weight loss of 25 pounds over the last four months. Review of Systems - General: Reports significant weight loss of 25 pounds over four months. - Psychiatric: Reports anxiety related to weight loss and eating habits. - Gastrointestinal: Reports decreased appetite and reluctance to eat, consuming minimal food. Physical Exam Results - Labs: Hemoglobin level at 11.6 g/dL indicating mild anemia. - Labs: Electrolytes, renal function, blood sugar, liver function, cholesterol (LDL 94), vitamin D, and thyroid levels are within normal limits. - Urinalysis: No infection detected. Plan Patient was informed and verbally consented to the use of an ambient scribe for clinic note documentation during this visit. 1. Weight Loss The patient is experiencing significant weight loss of 25 pounds over four months, with associated anxiety and decreased appetite. A chest x-ray and ultrasound have been ordered to investigate potential underlying causes. The patient is advised to maintain adequate hydration and nutritional intake. 2. Mood Disorder The patient has a history of mood disorder and is currently under psychiatric care. Medication adjustments have been made, switching from buspirone to risperidone, which caused gastrointestinal side effects. The patient is also taking fluoxetine and is advised to continue psychiatric follow-up. 3. Gastroesophageal Reflux Disease (Gerd) The patient has a history of GERD and has been on omeprazole for several years. Significant reflux has been confirmed through previous diagnostic tests, and a follow-up with gastroenterology is scheduled. 4. Iron Deficiency Anemia The patient has iron deficiency anemia with a hemoglobin level of 11.6 g/dL. She is advised to maintain a diet rich in iron and B12 to manage her anemia. 5. Cholelithiasis The patient has a history of cholelithiasis, but no recent complications were discussed. Discussion Notes During the visit, we discussed the patient's significant weight loss and the associated anxiety and decreased appetite. I have ordered a chest x-ray and ultrasound to investigate potential underlying causes. We also reviewed her psychiatric care, including medication adjustments from buspirone to risperidone, and the continuation of fluoxetine. The patient is advised to maintain adequate hydration and nutritional intake, and to continue follow-up with psychiatry and gastroenterology. Patient Instructions - Maintain adequate hydration and nutritional intake. - Continue follow-up with psychiatry and gastroenterology. - Monitor for any new or worsening symptoms and seek medical attention if necessary. Orders: Orders XR chest 2V Today R63.4 - Abnormal weight loss US abdomen complete Today R10.11 - Right upper quadrant pain, R79.89 - Other specified abnormal findings of blood chemistry Medications: New omeprazole 20 mg PO DAILY 30 caps 3RF K21.9 - Gastro-esophageal reflux disease without esophagitis
--- OUTSIDE RECORDS SUMMARY | 2025-01-10 17:15 | XMS_ITS | Encounter Summary ---
Author Organization [facility] Address [address] [place] [address] Care Team Providers Care Consultant [employer]. Vice President [employer] (Ex ) Name Role Phone Unavailable Primary Care Provider Unavailabl e Encounter Details Date Type Department Care Team (Latest Contact Info) Description 10/19/2018 Abstract [facility] CONVERSIONS Dental, Provider, DDS Social History [...] Description 01/25/2025 9:00 AM EDT Office Visit [facility] [address] [place], [place] [phone] Winnie Lewis BDS [address] [place], [place] [phone] documented as of this encounter Visit Diagnoses Not on filedocumented in this encounter
--- OUTSIDE RECORDS SUMMARY | 2025-01-10 17:15 | XMS_ITS | Patient Health Record ---
Author [facility] Address [address] [place] [address] Care Team Providers Care Conical Mixer Name Role Phone Mal Potter Primary Care Provider Lacey Monte Unavailable [phone] Allergies No Known Allergies Reason For Referral No Information Medications Medication SIG (Take, Route, Frequency, Duration) Notes Start Date End Date Status Vitamin D3 250 MCG (16798 UT) as directed Orally Active Triamcinolone Acetonide 0.025 % 1 application Externally Once a day Active Fiber Therapy 500 MG 2 tablets with a fu ll glass of water as needed Orally Six times a day Active Ketoconazole 2 % 1 application Assistant Professor Of Surgery ally Once a day Active Sucralfate 1 [...] Date Coverage End Date [employer] Claims [address] [place] [address] [phone] [id number] Moraima Cadena Self - patient is the insured Medical (General) History Medical History History ICD Code Anemia mood disorder Obesity Mental and behavioral problem Anxiety asthma Reflux ( GERD) Surgical History Surgery Date(Month/Year)
--- OUTSIDE RECORDS SUMMARY | 2025-01-10 17:15 | XMS_ITS | Encounter Summary ---
Author Organization [facility] Address [address] [place] [address] Care Team Providers Care Core Sucker Name Role Phone Unavailable Primary Care Provider Unavailabl e Encounter Details Date Type Department Care Team (Latest Contact Info) Description 11/13/2020 Abstract [facility] CONVERSIONS Dental, Provider, DDS Social History [...] Description 01/25/2025 9:00 AM EDT Office Visit [facility] [address] [place], [place] [phone] Winnie Lewis BDS [address] [place], [place] [phone] documented as of this encounter Visit Diagnoses Not on filedocumented in this encounter
--- OUTSIDE RECORDS SUMMARY | 2025-01-10 17:15 | XMS_ITS | Clinical Summary ---
Author Organization [employer] Address [address] [place] [address], [place] [address] Care Team Providers Care Vice President Name Role Phone Unavailable Primary Care Provider [...] Description 12/28/2024 9:00 AM EDT Office Visit [facility] [address] [place] [address] Winnie Lewis BDS Dental caries (Primary Dx) 11/02/2024 9:00 AM EDT Office Visit [facility] [address] [place] [address] Polina Patel 10/30/2024 Travel from Last 3 [...] Description 01/25/2025 9:00 AM EDT Office Visit [facility] [address] [place] [phone] Winnie Lewis, BDS [address] [place] [address] Health Maintenance Due Date Last Done Comments [...] Recently Relevant to Health Maintenance Insurance DENTAL [facility] DENTAL [facility]
--- OUTSIDE RECORDS SUMMARY | 2025-01-10 17:15 | XMS_ITS | Encounter Summary ---
Author Organization [employer] [facility] Address [address] [place] [address] [address] [address] Care Team Providers Care Locum Tenens Hospitalist Name Role Phone Unavailable Primary Care Provider Unavailabl e Reason for Visit * Reason Onset Date Comments referral mail out 09/17/2022 Encounter Details Date Type Department Care Team ([facility] Contact Info) Description 09/17/2022 Telephone [facility] [address] [place] [phone] Winnie Lewis BDS [address] [place], [place] [phone] referral mail out Social History Tobacco Use [...] Upcoming Encounters Date Type Department Care Team ([facility] Contact Info) Description 01/25/2025 9:00 AM EDT Office Visit [facility] [address] [place] [phone] Winnie Lewis, BDS [address] [facility] [place] [phone] documented as of this encounter Visit Diagnoses Not on filedocumented in this encounter
--- OUTSIDE RECORDS SUMMARY | 2025-01-10 17:15 | XMS_ITS | Encounter Summary ---
Author Organization [employer] Address [address] [place] [address] [address] [place] [address] Care Team Providers Care Kitchen Clerk Name Role Phone Unavailable Primary Care Provider Unavailabl e Reason for Visit * Reason Onset Date Comments referral 09/02/2022 Encounter Details Date Type Department Care Team (Late st Contact Info) Description 09/02/2022 Telephone [facility] [address] [place] [phone] Winnie Lewis BDS [address] [place], [place] [phone] referral Social History Tobacco Use Types Packs/Day [...] EDT Office Visit [facility] [address] [place] [address] Winnie Lewis BDS [address] [place] [address] documented as of this encounter Visit Diagnoses Not on filedocumented in this encounter
== END 2025-01-10 17:33 | disposition home or self-care (01) ==
LOC: HO.HMCH 16:31
PROVIDERS: PCP Internal Medicine; Visit Provider Internal Medicine
DX: F48.9 Nonpsychotic mental disorder, unspecified (principal); F69 Unspecified disorder of adult personality and behavior; K21.9 Gastro-esophageal reflux disease without esophagitis; R63.4 Abnormal weight loss; R10.11 Right upper quadrant pain

== ENCOUNTER → 2025-01-10 16:30 | Outpatient (BNVA) | payer OTHER, SELFPAY | PROVIDERS: PCP Internal Medicine; Visit Provider Internal Medicine | DX: K21.9 Gastro-esophageal reflux disease without esophagitis (principal); F48.9 Nonpsychotic mental disorder, unspecified; F69 Unspecified disorder of adult personality and behavior; R63.4 Abnormal weight loss; R10.11 Right upper quadrant pain; D50.9 Iron deficiency anemia, unspecified; R79.89 Other specified abnormal findings of blood chemistry; Z68.29 Body mass index [BMI] 29.0-29.9, adult | CPT/HCPCS: 96127; 99212 ==

== ENCOUNTER 2025-03-14 08:39 | Outpatient (REF) | payer OTHER, SELFPAY ==
--- NOTE | ~2025-03-14 | US_ITS ---
CLINICAL HISTORY: R79.89 - ELEVATED LIVER FUNCTION TESTS US abdomen complete with duplex and color Doppler Comparison: US/SR - US ABDOMEN - 02/03/24 07:59 EDT Findings: The visualized pancreas, aorta, and inferior vena cava are unremarkable. Liver normal size and echotexture. Right lobe 13.3 cm length. No focal hepatic masses. Common duct 5.0 mm diameter. Physiologic distention of the gallbladder. Layering gallstones. No gallbladder wall thickening. No pericholecystic fluid. No sonographic Sahni sign. Main portal vein antegrade. Right kidney normal size, 10.6 cm in length. Normal cortical width and echotexture. No solid or cystic renal masses. No nephrolithiasis. No hydronephrosis. Left kidney normal, 9.6 cm in length. Normal cortical width and echotexture. No solid or cystic renal masses. No nephrolithiasis. No hydronephrosis. Spleen measures 10.2 cm. No splenic masses. No ascites. No lymphadenopathy. Impression: 1. Cholelithiasis without evidence of cholecystitis. This document has been electronically signed by: Marcos Reynolds MD on 03/14/2025 10:36:08
--- NOTE | ~2025-03-14 | XR_ITS ---
EXAMINATION: XR CHEST CLINICAL INFORMATION: R63.4 - Abnormal weight loss COMPARISON: None available. TECHNIQUE: 2 views of the chest were obtained. FINDINGS: 7 mm density projects over the lateral right mid lung, inferior scapula and anterior right fifth rib on the PA view. No corresponding abnormality is seen on the lateral view. It is uncertain whether this represents superimposition of bony structures, something in the bone such as a bone island or pulmonary nodule. Lungs are otherwise clear. No consolidation or pulmonary edema. No pleural effusion or pneumothorax. Cardiac and mediastinal contours are normal. Mild thoracic scoliosis and degenerative changes. XR/XR chest 2V IMPRESSION: 7 mm nodular density projects over the lateral right midlung described above. Question bone finding versus pulmonary nodule. Follow-up chest x-ray with oblique views versus chest CT recommended. Electronically signed by: Merle Gutierrez MD 03/14/2025 09:14 AM EST
--- OUTSIDE RECORDS SUMMARY | 2025-03-14 08:50 | XMS_ITS | Encounter Summary ---
Author Organization [facility] Address [address] [place] [address] 7 [place] [address] Care Team Providers Care Double End Chucking Machine Operator Name Role Phone Unavailable Primary Care Provider Unavailabl e Reason for Visit * Reason Onset Date Comments referral mail out 09/17/2022 Encounter Details Date Type Department Care Team ([facility] Contact Info) Description 09/17/[address] [facility] [address] [place], [place] [phone] Winnie Lewis BDMoshe [address] [place], [place] [phone] referral mail out Social History Tobacco Use [...]
--- OUTSIDE RECORDS SUMMARY | 2025-03-14 08:50 | XMS_ITS | Encounter Summary ---
Author Organization [facility] Address [address] [place] [address] Care Team Providers Care Recreation Director Name Role Phone Unavailable Primary Care Provider Unavailabl e Encounter Details Date Type Department Care Team (Latest Contact Info) Description 11/13/2020 Abstract [facility] CONVERSIONS Dental, Provider, DDS Social History Tobacco Use Types Packs/Day Years Used Date Smoking Tobacco: Never Assessed Comments Unknown Sex and Gender Information Value Date Recorded Sex Assigned at Female 02/10/2022 10:18 AM EDT Legal Sex Female 10:18 AM EDT Gender Identity Female 02/10/2022 10:18 AM EDT Sexual Orientation Straight 02/10/2022 10 :18 AM EDT documented as of this encounter Plan of Treatment Not on file documented as of this encounter Visit Diagnoses Not on filedocumented in this encounter
--- OUTSIDE RECORDS SUMMARY | 2025-03-14 08:50 | XMS_ITS | Clinical Summary ---
Author Organization [employer] Address [address] [place] [address] [address] Care Team Providers Care Glass Worker Name Role Phone Unavailable Primary Care [...] mouth every night at bedtime 12/14/2024 Active Active Problems No known active problems Encounters Date Type Department Care Team Description 03/07/2025 2:00 PM EST Office Visit [facility] [address] [place] [address] [phone] Bhaskar Tucker DMD 02/28/2025 Travel 01/18/2025 Travel 12/28/2024 9:00 AM EDT Office Visit [facility] [address] [place] [address] [phone] Kimberly LewisBREANNA joshi Dental caries (Primary Dx) from Last 3 Months Social History Tobacco [...] Mass Index - - Plan of Treatment Health Maintenance Due Date Last Done Comments [...] exists Dental X-Ray: Full Mouth 07/01/2025 06/30/2022 Dental X-Ray: Bitewings 11/03/2025 11/03/19, 10/07/2023, 06/11/2022 Tobacco Screening 03/07/2026 03/07/2025 RSV Patients and Patients Aged 60 years [...] Procedure Name Priority Date/Time Associated Diagnosis Comments CASE PRESENTATION, DETAILED AND EXTENSIVE TREATMENT PLANNING Routine 03/07/2025 2:00 PM EST 8 MFL RESIN-BASED COMPOSITE - 3 SURF, ANTERIOR Routine 03/07/2025 2:00 PM EST 19 MO RESIN-BASED COMPOSITE - 2 SURF, POSTERIOR Routine 12/28/2024 9:00 AM EDT PROPHYLAXIS - ADULT Routine 11/02/2024 9 :00 AM EDT BITEWINGS - 4 RADIOGRAPHIC IMAGES Routine 11/02/2024 9:00 AM EDT PERIODIC ORAL EVALUATION - ESTABLISHED PATIENT Routine 11/02/2024 9:00 AM EDT PANORAMIC RADIOGRAPHIC IMAGE Routine 06/30/2022 3:00 PM EDT from Last 3 Months or Most Recently Relevant to Health Maintenance Insurance DENTAL - [facility] DENTAL - [facility]
--- OUTSIDE RECORDS SUMMARY | 2025-03-14 08:50 | XMS_ITS | Encounter Summary ---
Author Organization [employer] [facility] Address [address] [place] [address] Care Team Providers Care Hand Spring Repairer Helper Name Role Phone Unavailable Primary Care Provider Unavailabl e Encounter Details Date Type Department Care Team (Latest Contact Info) Description 10/19/2018 Abstract [facility] CONVERSIONS Dental, Provider, DDS Social History [...]
--- OUTSIDE RECORDS SUMMARY | 2025-03-14 08:50 | XMS_ITS | Encounter Summary ---
Author Organization [employer] Address [address] [facility] 7 [place] [address] Care Team Providers Care Machine Greaser Name Role Phone Unavailable Primary Care Provider Unavailabl e Reason for Visit * Reason Onset Date Comments referral 09/02/2022 Encounter Details Date Type Department Care Team ([facility] Contact Info) Description 09/02/2022 Telephone [facility] [address] [place], [place] [phone] Winnie Lewis BDS [address] [place], [place] [phone] referral Social History Tobacco Use Types Packs/Day [...]
== END 2025-03-14 08:40 | disposition home or self-care (01) ==
LOC: HO.US 08:39
PROVIDERS: PCP Internal Medicine; Visit Provider Internal Medicine
DX: R10.11 Right upper quadrant pain (principal); R79.89 Other specified abnormal findings of blood chemistry; R63.4 Abnormal weight loss
CPT/HCPCS: 71046; 76700

== ENCOUNTER → 2025-03-14 08:46 | Outpatient (BNV) | payer OTHER, SELFPAY | PROVIDERS: PCP Internal Medicine; Visit Provider Radiology Diagnostic Radiology | DX: K80.20 Calculus of gallbladder without cholecystitis without obstruction (principal); R91.8 Other nonspecific abnormal finding of lung field | CPT/HCPCS: 71046; 76700 ==